=== PATIENT | female | born 1940 | race Caucasian/White ===

== ENCOUNTER 2017-04-08 09:47 | Emergency (ER) | payer MEDICARE, OTHER ==
[~2017-04-08] VITALS: Ht 162.6 cm; Wt 71.0 kg
[~2017-04-08 09:47] MED LIST: ACET325 PO; AUGM875T PO; CLON.1 PO; COLE625 PO; CYMB30CA PO; DEPA500T3 PO; LISI-363 PO; MELA3TAB PO; MILKSUS5 PO; MIRA33502 PO; PROM25TA5 PO; PROP80CA PO; RISP0.5T20 PO; SINE25TA PO; TEMA15 PO; TERA1 PO; VITA100020 PO; [UNRECOGNIZED DRUG - CODE] PO
[2017-04-08 10:15] VITALS: BP 137/76; PULSE 58; RESP 18; TEMP 97.2; O2SAT 96
--- NOTE | 2017-04-08 10:57 | PD ---
HPI Chief Complaint: Fall Time Seen by Provider: 10:49 Travel History International Travel<30 days: No Contact w/Intl Traveler<30days: No Traveled to known affect area: No History of Present Illness HPI This patient complains of left ankle and left knee pain. Duration 1 hour. Severity is moderate. Worse with weightbearing. She got up quickly from a chair at the eye doctor's office and twisted her ankle and fell onto her left knee. No head injury. No alleviating factors. 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 ABUSE) Allergies-Medications (Allergen,Severity, Reaction): Coded Allergies: Sulfa (Sulfonamide Antibiotics) (Unverified Allergy, Severe, Anaphylaxis, 04/08/17) iodine (Unverified Allergy, Severe, Anaphylaxis, 04/08/17) potassium iodide (Unverified Allergy, Severe, Anaphylaxis, 04/08/17) povidone-iodine (Unverified Allergy, Severe, Anaphylaxis, 04/08/17) sodium iodide (Unverified Allergy, Severe, Anaphylaxis, 04/08/17) sodium iodide (Unverified Allergy, Severe, Anaphylaxis, 04/08/17) Reported Meds & Prescriptions Reported Meds & Active Scripts Active Reported Tylenol-Codeine #3 (Acetaminophen-Codeine) 300-30 mg Tab 1 Tab PO TID PRN Colestid (Colestipol HCl) 1 Gram Tab 2 Gm PO BID Divalproex DR (Divalproex Sodium) 500 Mg Tabdr 500 Mg PO HS Carbidopa-Levodopa 25-100 Mg Tab 0.5 Tab PO Q8HR Amlodipine (Amlodipine Besylate) 5 Mg Tab 5 Mg PO DAILY Xanax (Alprazolam) 0.5 Mg Tab 0.5 Mg PO HS PRN Vitamin D3 (Cholecalciferol) 3,000 Unit Tab 6,000 Units PO DAILY Vitamin D3 (Cholecalciferol) 2,000 Unit Cap 2,000 Units PO DAILY Propranolol (Propranolol HCl) 60 Mg Tab 60 Mg PO Q8HR Terazosin (Terazosin HCl) 1 Mg Cap 1 Mg PO BID Temazepam 15 Mg Cap 15 Mg PO HS PRN Melatonin 5 Mg Tab 5 Mg PO HS Magnesium Oxide 400 Mg Tab 400 Mg PO BID Loperamide (Loperamide HCl) 2 Mg Cap 2 Mg PO DIRECTED PRN One capsule after each loose stool. Not to exceed 8 capsules per day. Lisinopril 20 Mg Tab 20 Mg PO BID Gabapentin 300 Mg Cap 300 Mg PO TID Eszopiclone 2 Mg Tab 2 Mg PO HS PRN Eliquis (Apixaban) 5 Mg Tab 5 Mg PO BID Duloxetine DR (Duloxetine HCl) 30 Mg Capdr 30 Mg PO BID Review of Systems General / Constitutional: No: Fever Eyes: No: Visual changes HENT: No: Headaches Cardiovascular: No: Chest Pain or Discomfort Respiratory: No: Shortness of Breath Gastrointestinal: No: Abdominal Pain Genitourinary: No: Dysuria Musculoskeletal: Positive: Arthralgias, Pain Skin: No Rash Neurologic: No: Weakness Psychiatric: No: Depression Endocrine: No: Polydipsia Hematologic/Lymphatic: No: Easy Bruising Physical Exam Narrative GENERAL: Well-nourished, well-developed patient in no apparent distress. SKIN: Focused skin assessment reveals no rash and nodules. Skin is Warm and dry. HEAD: Atraumatic. Normocephalic. EYES: Pupils equal and round. No scleral icterus. No injection or drainage. ENT: No nasal bleeding or discharge. Mucous membranes pink and moist. NECK: Trachea midline. No JVD. CARDIOVASCULAR: Regular rate and rhythm. No murmur appreciated. RESPIRATORY: No accessory muscle use. Clear to auscultation. Breath sounds equal bilaterally. GASTROINTESTINAL: Abdomen soft, non-tender, nondistended. Hepatic and splenic margins not palpable. MUSCULOSKELETAL: No obvious deformities. No clubbing. No cyanosis. She has some swelling and tenderness of the lateral malleolus of the left ankle. There is also slight bruising and tenderness to the patella on the left. NEUROLOGICAL: Awake and alert. No obvious cranial nerve deficits. Motor grossly within normal limits. Normal speech. PSYCHIATRIC: Appropriate mood and affect; insight and judgment normal. Data Data Last Documented VS Vital Signs Date Time Temp Pulse Resp B/P (MAP) Pulse Ox O2 Delivery O2 Flow Rate FiO2 04/08/17 10:15 97.2 58 18 137/76 (96) 96 Room Air Orders Orders Ankle, Complete ([id number]) (04/08/17 ) Knee, Complete (4vws) (04/08/17 ) [facility] Medical Decision Making Medical Screen Exam Complete: Yes Emergency Medical Condition: Yes Medical Record Reviewed: Yes Differential Diagnosis Knee fracture, ankle sprain, ankle fracture Narrative Course I have reviewed the patient's electronic medical record. I reviewed her left ankle x-rays I reviewed her left knee x-rays Diagnosis Primary Impression: Soft tissue injury of left knee Qualified Codes: S89.92XA - Unspecified injury of left lower leg, initial encounter Additional Impression: Inversion sprain of left ankle Qualified Codes: S93.402A - Sprain of unspecified ligament of left ankle, initial encounter Additional Instructions: Elevate left leg Apply ice to left ankle and left knee Limit weightbearing on left leg Use walker for a few days The patient was advised to follow up with their physician and return if they worsen. Med/Other Pt SpecificInfo: Other Disposition: 01 DISCHARGE HOME Condition: Stable Gualberto Pearce MD Apr 08, 2017 10:57
--- NOTE | 2017-04-08 12:01 | RADRPT ---
EXAM DATE/TIME: 04/08/2017 11:10 [facility] COMPARISON: No previous studies available for comparison. INDICATIONS : Left ankle pain after falling. MEDICAL HISTORY : Stroke. Parkinson's disease, dementia SURGICAL HISTORY : None. ENCOUNTER: Initial ACUITY: 1 day PAIN SCORE: 10/10 LOCATION: Left lateral ankle FINDINGS: Three view exam was performed of the left ankle. The bony structures are in normal alignment. No ev idence of fracture, dislocation, or soft tissue swelling. The ankle mortise is intact. No radiopaqu e foreign bodies are seen. Bony mineralization is normal. CONCLUSION: Negative for fracture or dislocation. Follow up in 7-10 days is suggested if symptoms persist. Juma Cole MD FACR on April 08, 2017 at 11:59 Board Certified Radiologist. This report was verified electronically.
--- NOTE | 2017-04-08 12:10 | RADRPT ---
EXAM DATE/TIME: 04/08/2017 11:15 [facility] COMPARISON: No previous studies available for comparison. INDICATIONS : Left knee pain after falling MEDICAL HISTORY : Stroke. Parkinsons's disease, dementia SURGICAL HISTORY : None. ENCOUNTER: Initial ACUITY: 1 day PAIN SCORE: 10/10 LOCATION: Left lateral knee FINDINGS: There is soft tissue swelling evident. Minimal loss of articular cartilage medial compartment with o ld fibular fracture. Acute fracture is not appreciated. Trace joint effusion is evident. Patella is intact. CONCLUSION: Trace joint effusion and soft tissue swelling. Fracture is not appreciated. Juma Cole MD FACR on April 08, 2017 at 12:07 Board Certified Radiologist. This report was verified electronically.
[2017-04-08] MEDS ORDERED: MELA5TAB15 PO (12:22)
[2017-04-08] MEDS ORDERED: ESZO1TAB3 PO (12:22)
[2017-04-08] MEDS ORDERED: GABA300C5 PO (12:22)
[2017-04-08] MEDS ORDERED: AMLO5TAB2 PO (12:22)
[2017-04-08] MEDS ORDERED: APIX5TAB PO (12:22)
[2017-04-08] MEDS ORDERED: ACET300T49 PO (12:22)
[2017-04-08] MEDS ORDERED: DIVA500T PO (12:22)
[2017-04-08] MEDS ORDERED: COLE1TAB PO (12:22)
[2017-04-08] MEDS ORDERED: TYLETAB34 PO (12:22)
[2017-04-08] MEDS ORDERED: MAGN400T2 PO (12:22)
[2017-04-08] MEDS ORDERED: TERA1CAP3 PO (12:22)
[2017-04-08] MEDS ORDERED: LISI-515 PO (12:22)
[2017-04-08] MEDS ORDERED: TEMA15CA PO (12:22)
[2017-04-08] MEDS ORDERED: LOPE2CAP PO (12:22)
[2017-04-08] MEDS ORDERED: ALPR.5 PO (12:22)
[2017-04-08] MEDS ORDERED: DULO1CAP2 PO (12:22)
[2017-04-08] MEDS ORDERED: PROP60TA PO (12:22)
[2017-04-08] MEDS ORDERED: CARB25TA9 PO (12:22)
[2017-04-08] MEDS ORDERED: VITA2000 PO (12:22)
[2017-04-08] MEDS ORDERED: VITA3000 PO (12:22)
== END 2017-04-08 12:58 | disposition home or self-care (01) ==
LOC: PHED 09:47
DX: S89.92XA Unspecified injury of left lower leg, initial encounter (principal); S93.402A Sprain of unspecified ligament of left ankle, initial encounter; W01.0XXA Fall on same level from slipping, tripping and stumbling without subsequent striking against object, initial encounter; Y93.89 Activity, other specified; Y92.531 Health care provider office as the place of occurrence of the external cause
CPT/HCPCS: 73564; 73610; 99283

== ENCOUNTER 2017-12-06 12:16 | Observation (INO) | payer MEDICARE, OTHER ==
[~2017-12-06] VITALS: Ht 162.6 cm; Wt 67.0 kg
[~2017-12-06 12:16] MED LIST changes: -ACET325 PO; +ALPR.5 PO; +AMLO5TAB2 PO; +APIX5TAB PO; -AUGM875T PO; +CARB25TA9 PO; -CLON.1 PO; +COLE1TAB PO; -COLE625 PO; -CYMB30CA PO; -DEPA500T3 PO; +DIVA500T PO; +DULO1CAP2 PO; +ESZO1TAB3 PO; +GABA300C5 PO; -LISI-363 PO; +LISI-515 PO; +LOPE2CAP PO; +MAGN400T2 PO; -MELA3TAB PO; +MELA5 PO; -MILKSUS5 PO; -MIRA33502 PO; -PROM25TA5 PO; +PROP60TA PO; -PROP80CA PO; -RISP0.5T20 PO; -SINE25TA PO; -TEMA15 PO; +TEMA15CA PO; -TERA1 PO; +TERA1CAP3 PO; +TYLETAB34 PO; -VITA100020 PO; +VITA2000 PO; +VITA3000 PO; -[UNRECOGNIZED DRUG - CODE] PO
[2017-12-06 12:20] VITALS: BP 162/70; PULSE 70; RESP 18; O2SAT 97
[2017-12-06] MEDS ORDERED: SERO25TA PO (12:40)
--- NOTE | 2017-12-06 12:40 | PD ---
HPI Chief Complaint: Neuro Symptoms/ Deficits Time Seen by Provider: 12:20 Travel History International Travel<30 days: No Contact w/Intl Traveler<30days: No Traveled to known affect area: No History of Present Illness HPI 77-year-old female presents to the emergency department with her daughter at bedside for evaluation altered mental status from [facility]. According to the assisted notes, the patient has been more altered than normal. She has been with an unsteady gait, more confused, not able to bring a drink to her face to drink. The daughter states that she has history of dementia and has been declining over the past several months. However, these symptoms are new as of 1 week ago. She states she has not seen the patient since November 11 when the patient became verbally aggressive with her. She got a psychiatrist involved at that time. The patient reports chronic bilateral headache to me. She denies any chest pain shortness breath. No abdominal pain. No nausea, vomiting, diarrhea. Patient has history of CVA. 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 PFSH Past Medical History Hx Anticoagulant Therapy: Yes Depression: Yes Heart Rhythm Problems: Yes (afib ) Cardiovascular Problems: Yes High Cholesterol: Yes Cerebrovascular Accident: Yes (tia, no residual, ) Coronary Artery Disease: Yes (afib) Dementia: Yes Genitourinary: Yes (utis,diarrhea ) Hypertension: Yes Parkinson's Disease: Yes Migraines: Yes Thyroid Disease: Yes ?: Not Past Surgical History Appendectomy: Yes Cholecystectomy: Yes Hysterectomy: Yes Tonsillectomy: Yes Social History Alcohol Use: No Tobacco Use: No Substance Use: No (HX OF RX ABUSE) Allergies-Medications (Allergen,Severity, Reaction): Coded Allergies: Sulfa (Sulfonamide Antibiotics) (Unverified Allergy, Severe, Anaphylaxis, 12/06/17) iodine (Unverified Allergy, Severe, Anaphylaxis, 12/06/17) potassium iodide (Unverified Allergy, Severe, Anaphylaxis, 12/06/17) povidone-iodine (Unverified Allergy, Severe, Anaphylaxis, 12/06/17) sodium iodide (Unverified Allergy, Severe, Anaphylaxis, 12/06/17) sodium iodide (Unverified Allergy, Severe, Anaphylaxis, 12/06/17) Reported Meds & Prescriptions Reported Meds & Active Scripts Active Reported Seroquel (Quetiapine Fumarate) 25 Mg Tab 25 Mg PO BID Tylenol-Codeine #3 (Acetaminophen-Codeine) 300-30 mg Tab 1 Tab PO TID PRN Colestid (Colestipol HCl) 1 Gram Tab 2 Gm PO BID Divalproex DR (Divalproex Sodium) 500 Mg Tabdr 500 Mg PO HS Carbidopa-Levodopa 25-100 Mg Tab 0.5 Tab PO Q8HR Amlodipine (Amlodipine Besylate) 5 Mg Tab 5 Mg PO DAILY Xanax (Alprazolam) 0.5 Mg Tab 0.5 Mg PO HS PRN Vitamin D3 (Cholecalciferol) 3,000 Unit Tab 6,000 Units PO DAILY Propranolol (Propranolol HCl) 60 Mg Tab 60 Mg PO Q8HR Terazosin (Terazosin HCl) 1 Mg Cap 1 Mg PO BID Melatonin 5 Mg Tab 5 Mg PO HS Magnesium Oxide 400 Mg Tab 400 Mg PO BID Loperamide (Loperamide HCl) 2 Mg Cap 2 Mg PO DIRECTED PRN One capsule after each loose stool. Not to exceed 8 capsules per day. Lisinopril 20 Mg Tab 20 Mg PO BID Gabapentin 300 Mg Cap 300 Mg PO TID Eszopiclone 2 Mg Tab 2 Mg PO HS PRN Eliquis (Apixaban) 5 Mg Tab 5 Mg PO BID Review of Systems Except as stated in HPI: all other systems reviewed are Neg Physical Exam Narrative GENERAL: Well-nourished, well-developed elderly female patient, afebrile. Patient is alert to person and place only. She does not know the month or the year. SKIN: Focused skin assessment warm/dry. HEAD: Normocephalic. Atraumatic. EYES: No scleral icterus. No injection or drainage. PERRLA. EOM intact. ENT: Mucosa pink and moist. No erythema or exudates. No uvular edema. No uvular , palatal, or tonsillar deviation. Airway patent. Nasal turbinates appear normal without nasal blood, purulent drainage or septal hematoma. Bilateral tympanic membranes clear without erythema or perforation. NECK: Supple, trachea midline. No JVD or lymphadenopathy. CARDIOVASCULAR: Regular rate and rhythm without murmurs, gallops, or rubs. RESPIRATORY: Breath sounds equal bilaterally. No accessory muscle use. Lung sounds are clear to auscultation. GASTROINTESTINAL: Abdomen soft, non-tender, nondistended. MUSCULOSKELETAL: No cyanosis, or edema. Bilateral upper and lower extremity strength 5/5. All extremities are neurovascularly intact. BACK: Nontender without obvious deformity. No CVA tenderness. NEUROLOGICAL: Awake and alert. Motor and sensory grossly within normal limits. Five out of 5 muscle strength in all muscle groups. Slow speech. Patient is unable to do finger to nose with her right hand. However, patient is blind in the right eye which may contribute to this. Data Data Last Documented VS Vital Signs Date Time Temp Pulse Resp B/P (MAP) Pulse Ox O2 Delivery O2 Flow Rate FiO2 12/06/17 13:44 98.6 12/06/17 12:46 99 Room Air 12/06/17 12:20 70 18 Orders Orders Electrocardiogram (12/06/17 12:33) Ammonia (12/06/17 12:33) Complete Blood Count With Diff (12/06/17 12:33) Comprehensive Metabolic Panel (12/06/17 12:33) Creatine Kinase (Cpk) (12/06/17 12:33) Prothrombin Time / Inr (Pt) (12/06/17 12:33) Act Partial Throm Time (Ptt) (12/06/17 12:33) Troponin I (12/06/17 12:33) Urinalysis - C+S If Indicated (12/06/17 12:33) Ct Brain W/O Iv Contrast(Rout) (12/06/17 12:33) Blood Glucose (12/06/17 12:33) Ecg Monitoring (12/06/17 12:33) Iv Access Insert/Monitor (12/06/17 12:33) Oximetry (12/06/17 12:33) Sodium Chloride 0.9% Flush (Ns Flush) (12/06/17 12:45) Valproic Acid (Depakene) (12/06/17 12:33) Admit Order (Ed Use Only) (12/06/17 14:31) Labs Laboratory Tests Test 12/06/17 12:35 12/06/17 12:40 White Blood Count 9.3 TH/MM3 Red Blood Count 4.19 MIL/MM3 Hemoglobin 12.5 GM/DL Hematocrit 37.6 % Mean Corpuscular Volume 89.8 FL Mean Corpuscular Hemoglobin 30.0 PG Mean Corpuscular Hemoglobin Concent 33.4 % Red Cell Distribution Width 14.7 % Platelet Count 177 TH/MM3 Mean Platelet Volume 9.8 FL Neutrophils (%) (Auto) 71.2 % Lymphocytes (%) (Auto) 22.2 % Monocytes (%) (Auto) 5.0 % Eosinophils (%) (Auto) 1.1 % Basophils (%) (Auto) 0.5 % Neutrophils # (Auto) 6.6 TH/MM3 Lymphocytes # (Auto) 2.1 TH/MM3 Monocytes # (Auto) 0.5 TH/MM3 Eosinophils # (Auto) 0.1 TH/MM3 Basophils # (Auto) 0.0 TH/MM3 CBC Comment DIFF FINAL Differential Comment Prothrombin Time 11.5 SEC Prothromb Time International Ratio 1.1 RATIO Activated Partial Thromboplast Time 36.6 SEC Blood Urea Nitrogen 24 MG/DL Creatinine 0.78 MG/DL Random Glucose 89 MG/DL Total Protein 7.4 GM/DL Albumin 3.4 GM/DL Calcium Level 8.5 MG/DL Alkaline Phosphatase 70 U/L Aspartate Amino Transf (AST/SGOT) 11 U/L Alanine Aminotransferase (ALT/SGPT) 10 U/L Total Bilirubin 0.4 MG/DL Sodium Level 139 MEQ/L Potassium Level 3.6 MEQ/L Chloride Level 104 MEQ/L Carbon Dioxide Level 25.8 MEQ/L Anion Gap 9 MEQ/L Estimat Glomerular Filtration Rate 72 ML/MIN Total Creatine Kinase 34 U/L Troponin I LESS THAN 0.02 NG/ML Valproic Acid (Depakene) Level 46 MCG/ML Ammonia 38 MCMOL/L [facility] Medical Decision Making Medical Screen Exam Complete: Yes Emergency Medical Condition: Yes Medical Record Reviewed: Yes Interpretation(s) Last Impressions Head CT 12/06/17 1233 Signed Impressions: Service Date/Time: Wednesday, December 06, 2017 13:49 - CONCLUSION: 1. Stable senescent changes and moderate periventricular ischemic white matter demyelination. 2. Complete opacification of the frontal sinuses, ethmoid air cells and right maxillary sinus. 3. No acute intracranial abnormality. Raul Rai MD Differential Diagnosis Electrolyte abnormality versus UTI versus CVA versus dementia Narrative Course 77-year-old female presents to the emergency department for worsening confusion , AMS over the past week. She does have history dementia. EKG, CBC, CMP, CK, ammonia level, troponin, PTT, PT/INR, UA, Depakote level, CT the brain are ordered and pending. EKG shows sinus rhythm, heart rate 67, no acute ST changes. CBC is unremarkable. CMP shows elevated BUN 24, no acute abnormality. CK is 34. Troponin is less than 0.02. Ammonia is 38. Coags show no acute abnormality. UA [-]. Depakote level is 46. CT of the brain shows no acute intracranial abnormality. [facility] is paged for admission. Dr. Richmond accepted admission. Diagnosis Primary Impression: Neurological abnormality Admitting Information Admitting Physician Requests: Observation Sydnee Gautam December 06, 2017 12:40
[2017-12-06] MEDS ORDERED: SODIUM CHLORIDE 0.9% FLUSH 10 ML FLUSH IV FLUSH PRN ×2 (12:45→14:45)
[2017-12-06 12:46] VITALS: O2SAT 99
[2017-12-06 13:12] LABS: AUTOMATED NEUTROPHIL # 6.6 TH/MM3 (1.8-7.7); BASOPHIL % 0.5 % (0.0-2.0); EOSINOPHIL # 0.1 TH/MM3 (0-0.4); EOSINOPHIL % 1.1 % (0.0-4.0); HEMATOCRIT 37.6 % (35.0-46.0); HEMOGLOBIN 12.5 GM/DL (11.6-15.3); LYMPH % 22.2 % (9.0-44.0); LYMPHOCYTE # 2.1 TH/MM3 (1.0-4.8); MEAN CELL VOLUME 89.8 FL (80.0-100.0); MEAN CORPUSCULAR HGB CONC 33.4 % (32.0-36.0); MEAN PLATELET VOLUME 9.8 FL (7.0-11.0); MONOCYTE # 0.5 TH/MM3 (0-0.9); NEUT % 71.2 % (16.0-70.0); PLATELET COUNT 177 TH/MM3 (150-450); RED BLOOD COUNT 4.19 MIL/MM3 (4.00-5.30); RED CELL DISTRIBUTION WIDTH 14.7 % (11.6-17.2); WHITE BLOOD COUNT 9.3 TH/MM3 (4.0-11.0)
[2017-12-06 13:18] LABS: INTERNATIONAL NORMALIZED RATIO 1.1 RATIO; PROTHROMBIN TIME - PATIENT 11.5 SEC (9.8-11.6)
[2017-12-06 13:36] LABS: ALBUMIN 3.4 GM/DL (3.4-5.0); ALT (GPT) 10 U/L (10-53); AST (GOT) 11 U/L (15-37); BICARBONATE 25.8 MEQ/L (21.0-32.0); BLOOD UREA NITROGEN 24 MG/DL (7-18); CALCIUM 8.5 MG/DL (8.5-10.1); CHLORIDE 104 MEQ/L (98-107); CREATININE 0.78 MG/DL (0.50-1.00); GLOMERULAR FILTRATION RATE 72 ML/MIN (>89); GLUCOSE,RANDOM 89 MG/DL (74-106); SODIUM (NA) 139 MEQ/L (136-145)
[2017-12-06 13:40] LABS: ALKALINE PHOSPHATASE 70 U/L (45-117); TOTAL BILIRUBIN ADULT 0.4 MG/DL (0.2-1.0); TOTAL PROTEIN 7.4 GM/DL (6.4-8.2); TROPONIN I LESS THAN 0.02 NG/ML (0.02-0.05)
[2017-12-06 13:44] VITALS: TEMP 98.6
--- NOTE | 2017-12-06 13:59 | RADRPT ---
EXAM DATE/TIME: 12/06/2017 13:49 [facility] COMPARISON: CT BRAIN W/O CONTRAST, January 31, 2015, 14:54. INDICATIONS : Dysphasia and unsteady gait for one week. RADIATION DOSE: 39.54 CTDIvol (mGy) MEDICAL HISTORY : Stroke. Parkinsons. Dementia. SURGICAL HISTORY : Hysterectomy. ENCOUNTER: Initial ACUITY: 1 day PAIN SCALE: 0/10 LOCATION: Bilateral head TECHNIQUE: Multiple contiguous axial images were obtained of the head. Using automated exposure control and adj ustment of the mA and/or kV according to patient size, radiation dose was kept as low as reasonably a chievable to obtain optimal diagnostic quality images. DICOM format image data is available electro nically for review and comparison. FINDINGS: CEREBRUM: Prominent diffuse cerebral atrophy. [id number] periventricular white matter hypodensities. The ventricles are normal for degree of atrophy and stable from prior exam. No evidence of midline shift , mass lesion, hemorrhage or acute infarction. No extra-axial fluid collections are seen. POSTERIOR FOSSA: The cerebellum and brainstem are intact. The 4th ventricle is midline. The cerebellopontine angle i s unremarkable. EXTRACRANIAL: The visualized portion of the orbits is intact. Completely opacified frontal sinuses, ethmoid air magan ls and right maxillary sinus. SKULL: The calvaria is intact. No evidence of skull fracture. CONCLUSION: 1. Stable senescent changes and moderate periventricular ischemic white matter demyelination. 2. Complete opacification of the frontal sinuses, ethmoid air cells and right maxillary sinus. 3. No acute intracranial abnormality. Raul Rai MD on December 06, 2017 at 13:55 Board Certified Radiologist. This report was verified electronically.
[2017-12-06] MEDS ORDERED: SENNOSIDES 8.6 MG TAB PO PRN (14:45)
[2017-12-06] MEDS ORDERED: BISACODYL 10 MG SUPP RECTAL PRN (14:45)
[2017-12-06] MEDS ORDERED: MAGNESIUM HYDROXIDE SUSP 30 ML CUP PO PRN (14:45)
[2017-12-06] MEDS ORDERED: METOCLOPRAMIDE HCL 10 MG/2 ML VIAL IV PUSH PRN (14:45)
[2017-12-06] MEDS ORDERED: LACTULOSE SYRUP 20 GM/30 ML CUP PO PRN (14:45)
[2017-12-06] MEDS ORDERED: NALOXONE HCL 0.4 MG/ML AMP IV PUSH PRN (14:45)
--- NOTE | 2017-12-06 14:55 | HHI.HP ---
[facility] Unknown Admission Diagnosis AMS, gait instability, neurological changes Diagnoses: Chief Complaint: unsteady gait, AMS Travel History International Travel<30 Days: No Contact w/Intl Traveler <30 Da: No Traveled to Known Affected Are: No History of Present Illness 77-year-old female with PMH of CVA, dementia, HTN, Afib on eliquis, Parkinson's presents to the emergency department with her daughter at bedside for evaluation altered mental status from [facility]. According to the [place] [facility] notes , the patient has been more altered than normal. She has been with an unsteady gait, more confused, not able to bring a drink to her face to drink. The daughter states that she has history of dementia and has been declining over the past several months. However, these symptoms are new as of 1 week ago. She states she has not seen the patient since November 11 when the patient became verbally aggressive with her. She got a psychiatrist involved at that time. The patient reports chronic bilateral headache to me. She denies any chest pain shortness breath. No abdominal pain. No nausea, vomiting, diarrhea. Patient has history of CVA. 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 Review of Systems ROS Limitations: Clinical Condition, Altered Mental Status Except as stated in HPI: all other systems reviewed are Neg Past Family Social History Past Medical History CVA, dementia, HTN, Afib on eliquis, Parkinson's Past Surgical History Appendectomy Cholecystectomy Hysterectomy Tonsillectomy Neck surgery Reported Medications Reported Meds & Active Scripts Active Reported Seroquel (Quetiapine Fumarate) 25 Mg Tab 25 Mg PO BID Tylenol-Codeine #3 (Acetaminophen-Codeine) 300-30 mg Tab 1 Tab PO TID PRN Colestid (Colestipol HCl) 1 Gram Tab 2 Gm PO BID Divalproex DR (Divalproex Sodium) 500 Mg Tabdr 500 Mg PO HS Carbidopa-Levodopa 25-100 Mg Tab 0.5 Tab PO Q8HR Amlodipine (Amlodipine Besylate) 5 Mg Tab 5 Mg PO DAILY Xanax (Alprazolam) 0.5 Mg Tab 0.5 Mg PO HS PRN Vitamin D3 (Cholecalciferol) 3,000 Unit Tab 6,000 Units PO DAILY Propranolol (Propranolol HCl) 60 Mg Tab 60 Mg PO Q8HR Terazosin (Terazosin HCl) 1 Mg Cap 1 Mg PO BID Melatonin 5 Mg Tab 5 Mg PO HS Magnesium Oxide 400 Mg Tab 400 Mg PO BID Loperamide (Loperamide HCl) 2 Mg Cap 2 Mg PO DIRECTED PRN One capsule after each loose stool. Not to exceed 8 capsules per day. Lisinopril 20 Mg Tab 20 Mg PO BID Gabapentin 300 Mg Cap 300 Mg PO TID Eszopiclone 2 Mg Tab 2 Mg PO HS PRN Eliquis (Apixaban) 5 Mg Tab 5 Mg PO BID Allergies: Coded Allergies: Sulfa (Sulfonamide Antibiotics) (Unverified Allergy, Severe, Anaphylaxis, 12/06/17) iodine (Unverified Allergy, Severe, Anaphylaxis, 12/06/17) potassium iodide (Unverified Allergy, Severe, Anaphylaxis, 12/06/17) povidone-iodine (Unverified Allergy, Severe, Anaphylaxis, 12/06/17) sodium iodide (Unverified Allergy, Severe, Anaphylaxis, 12/06/17) sodium iodide (Unverified Allergy, Severe, Anaphylaxis, 12/06/17) Family History Mother ovarian CA Father MD Brother MD Social History No EtOH or tobacco use. H/o prescription drug use. Physical Exam Vital Signs Vital Signs Date Time Temp Pulse Resp B/P (MAP) Pulse Ox O2 Delivery O2 Flow Rate FiO2 12/06/17 13:44 98.6 12/06/17 12:46 99 Room Air 12/06/17 12:20 70 18 162/70 (100) 97 Room Air Physical Exam GENERAL: This is a well-nourished, well-developed patient, in no apparent distress. SKIN: No rashes, ecchymoses or lesions. Cool and dry. HEAD: Atraumatic. Normocephalic. No temporal or scalp tenderness. EYES: Pupils equal round and reactive. Extraocular motions intact. No scleral icterus. No injection or drainage. ENT: Nose without bleeding, purulent drainage or septal hematoma. Throat without erythema, tonsillar hypertrophy or exudate. Uvula midline. Airway patent. NECK: Trachea midline. No JVD or lymphadenopathy. Supple, nontender, no meningeal signs. CARDIOVASCULAR: Regular rate and rhythm without murmurs, gallops, or rubs. RESPIRATORY: Clear to auscultation. Breath sounds equal bilaterally. No wheezes , rales, or rhonchi. GASTROINTESTINAL: Abdomen soft, non-tender, nondistended. No hepato-splenomegaly , or palpable masses. No guarding. MUSCULOSKELETAL: Extremities without clubbing, cyanosis, or edema. No joint tenderness, effusion, or edema noted. No calf tenderness. Negative Homans sign bilaterally. NEUROLOGICAL: Awake and alert. Cranial nerves II through XII intact. Motor and sensory grossly within normal limits. Five out of 5 muscle strength in all muscle groups. Normal speech. Laboratory Laboratory Tests Test 12/06/17 12:35 12/06/17 12:40 White Blood Count 9.3 Red Blood Count 4.19 Hemoglobin 12.5 Hematocrit 37.6 Mean Corpuscular Volume 89.8 Mean Corpuscular Hemoglobin 30.0 Mean Corpuscular Hemoglobin Concent 33.4 Red Cell Distribution Width 14.7 Platelet Count 177 Mean Platelet Volume 9.8 Neutrophils (%) (Auto) 71.2 Lymphocytes (%) (Auto) 22.2 Monocytes (%) (Auto) 5.0 Eosinophils (%) (Auto) 1.1 Basophils (%) (Auto) 0.5 Neutrophils # (Auto) 6.6 Lymphocytes # (Auto) 2.1 Monocytes # (Auto) 0.5 Eosinophils # (Auto) 0.1 Basophils # (Auto) 0.0 CBC Comment DIFF FINAL Differential Comment Prothrombin Time 11.5 Prothromb Time International Ratio 1.1 Activated Partial Thromboplast Time 36.6 Blood Urea Nitrogen 24 Creatinine 0.78 Random Glucose 89 Total Protein 7.4 Albumin 3.4 Calcium Level 8.5 Alkaline Phosphatase 70 Aspartate Amino Transf (AST/SGOT) 11 Alanine Aminotransferase (ALT/SGPT) 10 Total Bilirubin 0.4 Sodium Level 139 Potassium Level 3.6 Chloride Level 104 Carbon Dioxide Level 25.8 Anion Gap 9 Estimat Glomerular Filtration Rate 72 Total Creatine Kinase 34 Troponin I LESS THAN 0.02 Valproic Acid (Depakene) Level 46 Ammonia 38 Result Diagram: 12/06/17 1235 12/06/17 1235 Imaging Last Impressions Head CT 12/06/17 1233 Signed Impressions: Service Date/Time: Wednesday, December 06, 2017 13:49 - CONCLUSION: 1. Stable senescent changes and moderate periventricular ischemic white matter demyelination. 2. Complete opacification of the frontal sinuses, ethmoid air cells and right maxillary sinus. 3. No acute intracranial abnormality. MD Ragini Fan VTE Risk Assessment Ragini VTE Risk Assessment: Mod/High Risk (score >= 2) Caprini Risk Assessment Model Point Value = 1 Point Value = 2 Point Value = 3 Point Value = 5 Age 41-60 Minor surgery BMI > 25 kg/m2 Swollen legs Varicose veins or History of unexplained or recurrent spontaneous Oral contraceptives or hormone replacement Sepsis (< 1 month) Serious lung disease, including pneumonia (< 1 month) Abnormal pulmonary function Acute myocardial infarction Congestive heart failure (< 1 month) History of inflammatory bowel disease Medical patient at bed rest Age 61-74 Arthroscopic surgery Major open surgery (> 45 min) Laparoscopic surgery (> 45 min) Malignancy Confined to bed (> 72 hours) Immobilizing plaster cast Central venous access Age >= 75 History of VTE Family history of VTE Factor V Leiden Prothrombin [id number] Lupus anticoagulant Anticardiolipin antibodies Elevated serum homocysteine Heparin-induced thrombocytopenia Other congenital or acquired thrombophilia Stroke (< 1 month) Elective arthroplasty Hip, pelvis, or leg fracture Acute spinal cord injury (< 1 month) Prophylaxis Regimen Total Risk Factor Score Risk Level Prophylaxis Regimen 0-1 Low Early ambulation 2 Moderate Order ONE of the following: *Sequential Compression Device (SCD) *Heparin 5000 units SQ BID 3-4 Higher Order ONE of the following medications: *Heparin 5000 units SQ TID *Enoxaparin/Lovenox 40 mg SQ daily (WT < 150 kg, CrCl > 30 mL/min) *Enoxaparin/Lovenox 30 mg SQ daily (WT < 150 kg, CrCl > 10-29 mL/min) *Enoxaparin/Lovenox 30 mg SQ BID (WT < 150 kg, CrCl > 30 mL/min) AND/OR *Sequential Compression Device (SCD) 5 or more Highest Order ONE of the following medications: *Heparin 5000 units SQ TID (Preferred with Epidurals) *Enoxaparin/Lovenox 40 mg SQ daily (WT < 150 kg, CrCl > 30 mL/min) *Enoxaparin/Lovenox 30 mg SQ daily (WT < 150 kg, CrCl > 10-29 mL/min) *Enoxaparin/Lovenox 30 mg SQ BID (WT < 150 kg, CrCl > 30 mL/min) AND *Sequential Compression Device (SCD) Assessment and Plan Assessment and Plan 77-year-old female with PMH of CVA, dementia, HTN, Afib on eliquis, Parkinson's presents to the emergency department for worsening confusion, AMS over the past week and gait disturbance for the past 2 days. H/o CVA now with new gait abnormality x 2 days and progressive AMS over the past week Acute encephalopathy patient presented with decline in mental status. Labs and CT imaging stable. Also patient has a h/o dementia. Has a h/o CVA with right eye blindness CT of the brain reviewed no acute intracranial abnormality.Patient has a h/o neck surgery and has metal in her neck per daughter. Consult patient neurology Dr Carrero. Imaging per neuro Depakote level is 46. Will do EEG NPO , advance diet if passing swallow eval Consult PT/OT/ST Neurochecks Monitor on telemetry IVF. Allow permissive HTN 2D ECHO Afib rate controlled. Continue propranolol, monitor on tele. 2D ECHO. Restart home meds as appropriate DVT ppx scd/teds, restart eliquis Discussed Condition With pt, family her daughter at bedside, ER physician. Parvin Richmond MD December 06, 2017 14:55
[2017-12-06] MEDS ORDERED: ESZOPICLONE 2 MG TAB PO PRN (15:00)
[2017-12-06] MEDS ORDERED: ENOXAPARIN SODIUM 40 MG/0.4 ML SYRINGE SQ SCH (15:00)
[2017-12-06 16:30] VITALS: BP 155/72; PULSE 68; RESP 18; TEMP 97.8; O2SAT 93
[2017-12-06] MEDS: SODIUM CHLOR 0.9% 1000 ML INJ 1,000 ML IV SCH (17:36)
[2017-12-06] MEDS: GABAPENTIN 300 MG CAP PO SCH (17:36)
--- NOTE | 2017-12-06 17:48 | EKG ---
Date Performed: 12/06/2017 Time Performed: 13:22:32 PTAGE: 77 years EKG: Sinus rhythm POOR R WAVE PROGRESSION BORDERLINE ECG PREVIOUS TRACING : 01/31/2015 14.22 No significant change from previous tracing noted. DOCTOR: Cj Del Rio Interpretating Date/Time 12/06/2017 17:47:26
[2017-12-06] MEDS ORDERED: ENALAPRILAT 1.25 MG/ML VIAL IV PUSH PRN (18:00)
[2017-12-06] MEDS ORDERED: DEXTROSE 50% IN WATER 50 ML VIAL(D50) IV PUSH PRN (18:00)
[2017-12-06] MEDS ORDERED: GLUCAGON 1 MG/ML VIAL OTHER PRN (18:00)
[2017-12-06 20:05] VITALS: BP 189/79; PULSE 67; RESP 16; TEMP 98; O2SAT 94
[2017-12-06] MEDS: INSULIN ASPART SUPPLEMENTAL SCALE SQ SCH (20:37)
[2017-12-06 20:44] LABS: BACTERIA, URINE RARE /hpf; BILIRUBIN, URINE NEG (NEG); BLOOD, URINE NEG (NEG); GLUCOSE,URINE NEG (NEG); KETONE, URINE NEG (NEG); NITRITE,URINE NEG (NEG); PH, URINE 6.5 (5.0-8.5); SQUAMOUS EPITHELIAL CELL URINE 4 /hpf (0-5); URINE COLOR YELLOW (YELLW/STRAW); URINE LEUKOCYTE ESTERASE SMALL (NEG)
[2017-12-06] MEDS: DOCUSATE SODIUM 50 MG/SENNA 8.6 MG TAB PO SCH (21:00)
[2017-12-06] MEDS ORDERED: COLESTIPOL 2 GM PO SCH (21:00)
[2017-12-06] MEDS: CARBIDOPA/LEVODOPA 25 MG/100 MG TAB PO SCH (21:21)
[2017-12-06] MEDS: APIXABAN 5 MG TABLET PO SCH (21:21)
[2017-12-06] MEDS: QUEtiapine FUMARATE 25 MG TAB PO SCH (21:21)
[2017-12-06] MEDS: SODIUM CHLORIDE 0.9% FLUSH 10 ML FLUSH IV FLUSH SCH (21:21)
[2017-12-06] MEDS: PROPRANOLOL HCL 20 MG TAB PO SCH (21:22)
[2017-12-06] MEDS: MELATONIN 5 MG TAB PO SCH (21:22)
[2017-12-06] MEDS: MAGNESIUM OXIDE 400 MG TAB PO SCH (21:22)
[2017-12-06] MEDS: DIVALPROEX DR 500 MG TABEC PO SCH (21:33)
[2017-12-06] MEDS ORDERED: NON-FORMULARY DRUG (Propranolol 60 MG) PO SCH (22:00)
[2017-12-07] VITALS (8 sets, daily range): BP systolic 144–172; BP diastolic 67–77; PULSE 63–70; RESP 16–18; TEMP 97.5–98.8; O2SAT 90–96
[2017-12-07] MEDS: SODIUM CHLOR 0.9% 1000 ML INJ 1,000 ML IV SCH ×2 (04:20→18:01)
[2017-12-07] MEDS: PROPRANOLOL HCL 20 MG TAB PO SCH ×3 (05:33→23:07)
[2017-12-07] MEDS: CARBIDOPA/LEVODOPA 25 MG/100 MG TAB PO SCH ×3 (05:33→23:08)
[2017-12-07] MEDS ORDERED: LACTULOSE SYRUP 20 GM/30 ML CUP PO ONE (07:45)
[2017-12-07 07:54] LABS: BASOPHIL % 0.4 % (0.0-2.0); EOSINOPHIL # 0.2 TH/MM3 (0-0.4); HEMATOCRIT 34.7 % (35.0-46.0); HEMOGLOBIN 11.5 GM/DL (11.6-15.3); LYMPHOCYTE # 2.7 TH/MM3 (1.0-4.8); MEAN CELL VOLUME 90.1 FL (80.0-100.0); MEAN CORPUSCULAR HGB CONC 33.2 % (32.0-36.0); MEAN PLATELET VOLUME 10.2 FL (7.0-11.0); MONO % 5.5 % (0.0-8.0); MONOCYTE # 0.3 TH/MM3 (0-0.9); NEUT % 48.1 % (16.0-70.0); PLATELET COUNT 164 TH/MM3 (150-450); RED BLOOD COUNT 3.85 MIL/MM3 (4.00-5.30); RED CELL DISTRIBUTION WIDTH 14.6 % (11.6-17.2); WHITE BLOOD COUNT 6.2 TH/MM3 (4.0-11.0)
[2017-12-07] MEDS ORDERED: cefTRIAXone INJ 1,000 MG in SODIUM CHLORIDE 0.9% INJ 100 ML IV SCH (08:00)
[2017-12-07] MEDS: INSULIN ASPART SUPPLEMENTAL SCALE SQ SCH ×4 (08:00→21:00)
[2017-12-07 08:27] LABS: BICARBONATE 22.7 MEQ/L (21.0-32.0); CALCIUM 8.2 MG/DL (8.5-10.1); CREATININE 0.54 MG/DL (0.50-1.00)
[2017-12-07 08:30] LABS: CHOLESTEROL/ HDL RATIO 2.67 RATIO; HDL CHOLESTEROL 57.9 MG/DL (40.0-60.0)
[2017-12-07] MEDS: SODIUM CHLORIDE 0.9% FLUSH 10 ML FLUSH IV FLUSH SCH ×2 (09:29→21:00)
[2017-12-07] MEDS: GABAPENTIN 300 MG CAP PO SCH ×3 (09:29→18:01)
[2017-12-07] MEDS: CHOLECALCIFEROL (VIT D3) 1000 UNIT TAB PO SCH (09:29)
[2017-12-07] MEDS: APIXABAN 5 MG TABLET PO SCH ×2 (09:29→23:08)
[2017-12-07] MEDS: MAGNESIUM OXIDE 400 MG TAB PO SCH ×2 (09:29→23:09)
[2017-12-07] MEDS: QUEtiapine FUMARATE 25 MG TAB PO SCH ×2 (09:29→23:09)
[2017-12-07] MEDS: DOCUSATE SODIUM 50 MG/SENNA 8.6 MG TAB PO SCH ×2 (09:29→23:07)
--- NOTE | 2017-12-07 10:34 | PD.CONS ---
History of Present Illness Service Neurology Consult Requested By Medical Reason for Consult Stroke Primary Care Physician Unknown History of Present Illness 77-year-old female with history of dementia, stroke atrial fibrillation admitted for more confusion and gait imbalance. She lives at longterm facility. She apparently is been more agitated and off balance. No family at bedside patient poor historian. She denies any headache or focal weakness. States she has had visual loss in her right eye from a previous stroke. She sitting up eating breakfast comfortably. She is on Eliquis twice daily This reviewed and obtained from medical chart due to patient's memory loss Review of Systems Except as stated in HPI: all other systems reviewed are Neg Past Family Social History Past Medical History Stroke dementia, HTN, Afib on eliquis, Parkinson's Past Surgical History Appendectomy Cholecystectomy Hysterectomy Tonsillectomy Neck surgery Reported Medications Reported Meds & Active Scripts Active Reported Seroquel (Quetiapine Fumarate) 25 Mg Tab 25 Mg PO BID Tylenol-Codeine #3 (Acetaminophen-Codeine) 300-30 mg Tab 1 Tab PO TID PRN Colestid (Colestipol HCl) 1 Gram Tab 2 Gm PO BID Divalproex DR (Divalproex Sodium) 500 Mg Tabdr 500 Mg PO HS Carbidopa-Levodopa 25-100 Mg Tab 0.5 Tab PO Q8HR Amlodipine (Amlodipine Besylate) 5 Mg Tab 5 Mg PO DAILY Xanax (Alprazolam) 0.5 Mg Tab 0.5 Mg PO HS PRN Vitamin D3 (Cholecalciferol) 3,000 Unit Tab 6,000 Units PO DAILY Propranolol (Propranolol HCl) 60 Mg Tab 60 Mg PO Q8HR Terazosin (Terazosin HCl) 1 Mg Cap 1 Mg PO BID Melatonin 5 Mg Tab 5 Mg PO HS Magnesium Oxide 400 Mg Tab 400 Mg PO BID Loperamide (Loperamide HCl) 2 Mg Cap 2 Mg PO DIRECTED PRN One capsule after each loose stool. Not to exceed 8 capsules per day. Lisinopril 20 Mg Tab 20 Mg PO BID Gabapentin 300 Mg Cap 300 Mg PO TID Eszopiclone 2 Mg Tab 2 Mg PO HS PRN Eliquis (Apixaban) 5 Mg Tab 5 Mg PO BID Allergies: Coded Allergies: Sulfa (Sulfonamide Antibiotics) (Unverified Allergy, Severe, Anaphylaxis, 12/06/17) iodine (Unverified Allergy, Severe, Anaphylaxis, 12/06/17) potassium iodide (Unverified Allergy, Severe, Anaphylaxis, 12/06/17) povidone-iodine (Unverified Allergy, Severe, Anaphylaxis, 12/06/17) sodium iodide (Unverified Allergy, Severe, Anaphylaxis, 12/06/17) sodium iodide (Unverified Allergy, Severe, Anaphylaxis, 12/06/17) Family History Mother ovarian CA Father [place] Brother [place] Social History No EtOH or tobacco use. H/o prescription drug use. Review of Systems All other ROS: ROS reviewed as documented in chart Past Family Social History Allergies: Coded Allergies: Sulfa (Sulfonamide Antibiotics) (Unverified Allergy, Severe, Anaphylaxis, 12/06/17) iodine (Unverified Allergy, Severe, Anaphylaxis, 12/06/17) potassium iodide (Unverified Allergy, Severe, Anaphylaxis, 12/06/17) povidone-iodine (Unverified Allergy, Severe, Anaphylaxis, 12/06/17) sodium iodide (Unverified Allergy, Severe, Anaphylaxis, 12/06/17) sodium iodide (Unverified Allergy, Severe, Anaphylaxis, 12/06/17) Active Ordered Medications Current Medications Medications (Trade) Dose Ordered Sig/Luca Route Start Time Stop Time Status Last Admin Sodium Chloride 1,000 ml @ 75 mls/hr [id number] IV 12/06/17 15:00 12/06/17 17:36 (NS Flush) 2 ml UNSCH PRN IV FLUSH 12/06/17 14:45 (NS Flush) 2 ml BID IV FLUSH 12/06/17 21:00 12/07/17 09:29 (Tylenol) 650 mg Q4H PRN PO 12/06/17 14:45 (Reglan Inj) 5 mg Q6H PRN IV PUSH 12/06/17 14:45 (Narcan Inj) 0.4 mg UNSCH PRN IV PUSH 12/06/17 14:45 (Faby-Colace) 1 tab BID PO 12/06/17 21:00 12/07/17 09:29 (Milk Of Magnesia Liq) 30 ml Q12H PRN PO 12/06/17 14:45 (Senokot) 17.2 mg Q12H PRN PO 12/06/17 14:45 (Dulcolax Supp) 10 mg DAILY PRN RECTAL 12/06/17 14:45 (Lactulose Liq) 30 ml DAILY PRN PO 12/06/17 14:45 (Eliquis) 5 mg BID PO 12/06/17 21:00 12/07/17 09:29 (Sinemet 25-100 Mg) 0.5 tab Q8HR PO 12/06/17 22:00 12/07/17 05:33 (Vitamin D3) 6,000 units DAILY PO 12/07/17 09:00 12/07/17 09:29 (Depakote Dr) 500 mg HS PO 12/06/17 21:00 12/06/17 21:33 (Lunesta) 2 mg HS PRN PO 12/06/17 15:00 (Neurontin) 300 mg TID PO 12/06/17 18:00 12/07/17 09:29 (Mag-Ox) 400 mg BID PO 12/06/17 21:00 12/07/17 09:29 (Melatonin) 5 mg HS PO 12/06/17 21:00 12/06/17 21:22 (SEROquel) 25 mg BID PO 12/06/17 21:00 12/07/17 09:29 (Inderal) 60 mg Q8HR PO 12/06/17 22:00 12/07/17 05:33 (Colestipol Pkt) 5 gm DAILY PO 12/07/17 09:00 (Vasotec Inj) 1.25 mg Q4H PRN IV PUSH 12/06/17 18:00 (NovoLOG SUPPLEMENTAL SCALE) 1 ACHS SQ 12/06/17 21:00 12/07/17 08:00 (D50w (Vial) Inj) 50 ml UNSCH PRN IV PUSH 12/06/17 18:00 (Glucagon Inj) 1 mg UNSCH PRN OTHER 12/06/17 18:00 Ceftriaxone Sodium 1000 mg/ Sodium Chloride 100 ml @ 200 mls/hr Q24H IV 12/07/17 08:00 12/07/17 09:28 Exam I&O / VS Vital Signs Date Time Temp Pulse Resp B/P (MAP) Pulse Ox O2 Delivery O2 Flow Rate FiO2 12/07/17 07:14 98.7 65 18 158/75 (102) 96 12/07/17 04:28 97.7 63 16 151/67 (95) 96 12/07/17 00:16 97.5 69 16 161/74 (103) 93 12/07/17 00:06 21 12/06/17 20:05 98.0 67 16 189/79 (115) 94 12/06/17 16:30 97.8 68 18 155/72 (99) 93 12/06/17 16:12 12/06/17 13:44 98.6 12/06/17 12:46 99 Room Air 12/06/17 12:20 70 18 162/70 (100) 97 Room Air General: Alert and Oriented, No acute distress Eye: EOMI Respiratory: Non-labored respirations Musculoskeletal: ROM Neurologic: Alert Psychiatric: Cooperative Exam Comments Pleasant 77-year-old female sitting up in bed finishing her breakfast was calm polite oriented to herself only was following one-step motor requests. States she lives in [facility]. Was able to name simple objects. Reduced vision in the right eye with reduced blink to threat pupils 4.5 mm sluggishly reactive with opacities noted bilaterally. No temporal tenderness neck supple no facial asymmetry mild postural tremor was able to raise all 4 extremities to gravity for at least greater than 5 seconds. Slight increased tone. Reflexes 1 + symmetric plantarflex response no clonus elicited. Review/Management Diagnosis/Plan: (1) Dementia ICD Codes: F03.90 - Unspecified dementia without behavioral disturbance Status: Chronic Plan: Dementia with apparent recent behavioral disturbance. Some mention of a psychiatrist being involved in the patient's care facility Exam grossly nonfocal to any new deficits however challenging due to patient's memory loss She has been afebrile no leukocytosis no significant abnormalities on her chemistries, UA negative Recommendations Not certain there is anything really new going on here EEG MRI/MRA of the brain PT evaluation If nothing acute is found she can go back to the longterm and be followed up in the outpatient setting (2) History of stroke ICD Codes: Z86.73 - Personal history of transient ischemic attack (TIA), and cerebral infarction without residual deficits Status: Chronic Plan: Limited records in this respect. May have had a retinal artery occlusion affecting the vision in her right eye (3) Chronic headaches ICD Codes: R51 - Headache Status: Chronic Plan: History chronic headaches looking at the past medical chart She has been on Depakote ER for this it appears Problem Qualifiers (1) Dementia: Qualified Codes: G30.0 - Alzheimer's disease with early onset; F02.81 - Dementia in other diseases classified elsewhere with behavioral disturbance Valdo Davis MD December 07, 2017 10:34
[2017-12-07 11:40] LABS: FREE T4 1.1 NG/DL (0.76-1.46)
--- NOTE | 2017-12-07 12:22 | MG ---
cc: Tramaine Garcia MD EEG NUMBER: [id number] INDICATIONS: White matter changes on the CT, atrial fibrillation. MEDICATIONS: Depakote, gabapentin. DESCRIPTION: Diffuse 5 Hz, 60 microvolt rhythm is seen. Recording overall is synchronous and symmetric. No epileptiform or seizure activity is noted. There are no hemisphere asymmetries. The patient does not reach stage II sleep. Photic stimulation is performed without significant posterior driving. One sharp wave is seen not as well on the transverse, but on the bipolar montage phase reversing over T4 at epoch 122 right after hyperventilation and a small sharply contoured wave is seen at epoch 116 at the start of hyperventilation at 25 Hz over the left temporal head region. IMPRESSION: Some slight bitemporal sharps. Most impressive is the 1 phase reversing over the T4 electrode, but there is no ongoing seizure activity. A right temporal or bitemporal seizure focus could be considered. MD EBONI Leonardo/JARRET , 11:53 AM , 12:22 PM
--- NOTE | 2017-12-07 12:35 | RADRPT ---
EXAM DATE/TIME: 12/07/2017 12:12 [facility] COMPARISON: CT BRAIN W/O CONTRAST, December 06, 2017, 13:49. INDICATIONS : CVA. MEDICAL HISTORY : Hypertension. Diabetes mellitus type 2. Dementia. AFIB, Thyroid. SURGICAL HISTORY : Hysterectomy. Appendectomy. Fusion, cervical. Tonsils. ENCOUNTER: Initial ACUITY: 1 day PAIN SCORE: 1/10 LOCATION: Bilateral cranial Please note a normal MRA of the brain does not entirely exclude the possibility of a small aneurysm, nor the possibility of distal intracranial vessel disease. TECHNIQUE: 3D time of flight MRA was performed. Source images, multiplanar STS MIP, and 3D volume MIP reconstru ctions were reviewed. FINDINGS: There is excellent visualization of the major intracranial arteries out to the second-order branch ve ssels. There is no evidence for aneurysm, vessel truncation or stenosis, and no evidence for vascula r malformation. CONCLUSION: Normal examination. Pablo Bansal MD on December 07, 2017 at 12:30 Board Certified Radiologist. This report was verified electronically.
--- NOTE | 2017-12-07 12:37 | RADRPT ---
EXAM DATE/TIME: 12/07/2017 12:12 [facility] COMPARISON: No previous studies available for comparison. INDICATIONS : CVA. MEDICAL HISTORY : Hypertension. Diabetes mellitus type 2. Cerebrovascular disease. Dementia, Parkinson, AFIB. SURGICAL HISTORY : Fusion, cervical. Hysterectomy. Appendectomy. Tonsils. ENCOUNTER: Initial ACUITY: 1 day PAIN SCORE: 1/10 LOCATION: Bilateral cranial TECHNIQUE: Multiplanar, multisequence MRI of the brain was performed without contrast. FINDINGS: There is mild symmetric central and cortical atrophic change. Patchy mild T2 prolongation in the alistair ventricular white matter which appears chronic and benign. There is no evidence of intracranial hemor rhage or mass. There is nothing to suggest acute infarction. There is moderate mucosal sinus disease with complete opacification of the right maxillary sinus, multiple right-sided ethmoid air cells and the frontal sinuses. CONCLUSION: No acute intracranial findings. Pablo Bansal MD on December 07, 2017 at 12:34 Board Certified Radiologist. This report was verified electronically.
[2017-12-07] MEDS ORDERED: POTASSIUM CHLORIDE 20 MEQ CONTROLLED RELEASE TAB PO ONE (12:45)
[2017-12-07] MEDS: COLESTIPOL HCL 5 GM PACKET PO SCH (12:56)
[2017-12-07] MEDS: ACETAMINOPHEN 325 MG TAB PO PRN (12:56)
--- NOTE | 2017-12-07 12:58 | HHI.PR ---
Subjective Remarks Follow up for AMS, UTI, increased confusion with hx of dementia. The patient is seen with RN at bedside. She is awake, alert, oriented to self and hospital only. She only complains of a mild headache but states she gets those all the time. Denies any lightheadedness, dizziness, visual changes, unilateral numbness /weakness, chest pain, shortness of breath, abdominal or urinary complaints. Objective Vitals Vital Signs Date Time Temp Pulse Resp B/P (MAP) Pulse Ox O2 Delivery O2 Flow Rate FiO2 12/07/17 07:14 98.7 65 18 158/75 (102) 96 12/07/17 04:28 97.7 63 16 151/67 (95) 96 12/07/17 00:16 97.5 69 16 161/74 (103) 93 12/07/17 00:06 21 12/06/17 20:05 98.0 67 16 189/79 (115) 94 12/06/17 16:30 97.8 68 18 155/72 (99) 93 12/06/17 16:12 12/06/17 13:44 98.6 12/06/17 12:46 99 Room Air Result Diagram: 12/07/17 0711 12/07/17 0711 Imaging Last Impressions Head CT 12/06/17 1233 Signed Impressions: Service Date/Time: Wednesday, December 06, 2017 13:49 - CONCLUSION: 1. Stable senescent changes and moderate periventricular ischemic white matter demyelination. 2. Complete opacification of the frontal sinuses, ethmoid air cells and right maxillary sinus. 3. No acute intracranial abnormality. Raul Rai MD Objective Remarks GENERAL: Well-nourished, well-developed elderly female patient in NAD. Pleasantly confused. SKIN: Warm and dry. No rash. HEENT: Normocephalic. Atraumatic. Pupils equal and round. Mucous membranes pink and moist. NECK: Supple. CARDIOVASCULAR: Regular rate and rhythm. No murmur appreciated. RESPIRATORY: No accessory muscle use. Clear to auscultation. Breath sounds equal bilaterally. GASTROINTESTINAL: Abdomen soft, non-tender, nondistended. Normoactive bowel sounds x4. MUSCULOSKELETAL: No obvious deformities. Extremities without clubbing, cyanosis , or edema. NEUROLOGICAL: Awake and alert, oriented to self and hospital only. No obvious cranial nerve deficits. Motor grossly within normal limits. Moving all extremities spontaneously. Normal speech. PSYCHIATRIC: Appropriate mood and affect; insight and judgment limited. Medications and IVs Current Medications Medications (Trade) Dose Ordered Sig/Luca Route Start Time Stop Time Status Last Admin Sodium Chloride 1,000 ml @ 75 mls/hr [id number] IV 12/06/17 15:00 12/06/17 17:36 (NS Flush) 2 ml UNSCH PRN IV FLUSH 12/06/17 14:45 (NS Flush) 2 ml BID IV FLUSH 12/06/17 21:00 12/07/17 09:29 (Tylenol) 650 mg Q4H PRN PO 12/06/17 14:45 (Reglan Inj) 5 mg Q6H PRN IV PUSH 12/06/17 14:45 (Narcan Inj) 0.4 mg UNSCH PRN IV PUSH 12/06/17 14:45 (Faby-Colace) 1 tab BID PO 12/06/17 21:00 12/07/17 09:29 (Milk Of Magnesia Liq) 30 ml Q12H PRN PO 12/06/17 14:45 (Senokot) 17.2 mg Q12H PRN PO 12/06/17 14:45 (Dulcolax Supp) 10 mg DAILY PRN RECTAL 12/06/17 14:45 (Lactulose Liq) 30 ml DAILY PRN PO 12/06/17 14:45 (Eliquis) 5 mg BID PO 12/06/17 21:00 12/07/17 09:29 (Sinemet 25-100 Mg) 0.5 tab Q8HR PO 12/06/17 22:00 12/07/17 05:33 (Vitamin D3) 6,000 units DAILY PO 12/07/17 09:00 12/07/17 09:29 (Depakote Dr) 500 mg HS PO 12/06/17 21:00 12/06/17 21:33 (Lunesta) 2 mg HS PRN PO 12/06/17 15:00 (Neurontin) 300 mg TID PO 12/06/17 18:00 12/07/17 09:29 (Mag-Ox) 400 mg BID PO 12/06/17 21:00 12/07/17 09:29 (Melatonin) 5 mg HS PO 12/06/17 21:00 12/06/17 21:22 (SEROquel) 25 mg BID PO 12/06/17 21:00 12/07/17 09:29 (Inderal) 60 mg Q8HR PO 12/06/17 22:00 12/07/17 05:33 (Colestipol Pkt) 5 gm DAILY PO 12/07/17 09:00 (Vasotec Inj) 1.25 mg Q4H PRN IV PUSH 12/06/17 18:00 (NovoLOG SUPPLEMENTAL SCALE) 1 ACHS SQ 12/06/17 21:00 12/07/17 08:00 (D50w (Vial) Inj) 50 ml UNSCH PRN IV PUSH 12/06/17 18:00 (Glucagon Inj) 1 mg UNSCH PRN OTHER 12/06/17 18:00 Ceftriaxone Sodium 1000 mg/ Sodium Chloride 100 ml @ 200 mls/hr Q24H IV 12/07/17 08:00 12/07/17 09:28 (KCl) 40 meq ONCE ONCE PO 12/07/17 12:45 12/07/17 12:46 UNV A/P Assessment and Plan 77-year-old female with PMH of CVA, dementia, HTN, Afib on Eliquis, Parkinson's presents to the emergency department for worsening confusion, AMS over the past week and gait disturbance for the past 2 days. Acute Encephalopathy/Confusion with hx of Dementia/Parkinson's: also reported Gait Abnormality. Symptoms new over the past week. Rule out CVA. -Head CT reviewed, no acute findings -UA mildly abnormal, will treat for UTI, see below -Depakote level 46, EEG pending -Monitor on telemetry -Neuro checks -Consult PT/OT/ST -Consult neurology, appreciate assistance -Brain MRI/MRA ordered and pending -Check 2d Echo -Continue patient's Carbidopa-Levodopa, hold Tylenol #3 and Xanax for now -Possible this is patient's new baseline dementia with progression of Parkinson's. Afib: chronic, rate controlled. -Continue propranolol and anticoagulation with Eliquis -monitor on telemetry -2D ECHO. Abnormal UA: urinalysis with small leuks. Given encephalopathy as above, will treat -continue IV Rocephin for now -monitor urine culture and adjust antibiotics as needed Hypertension: not well controlled -continue patient's antihypertensives including propranolol, norvasc, lisinopril -monitor BP, adjust antihypertensives as needed Hyperammonemia: possibly contributing to encephalopathy as above. Ammonia level 38 -will give lactulose x1 now -repeat ammonia level in am Hypokalemia: K 3.1. -give po KCl replacement -check mag -repeat BMP in am DVT Prophylaxis: scd/teds, continue eliquis Discharge Planning Discharge pending further clinical improvement, neurology work up, urine culture , PT/OT eval. Possibly discharge tomorrow if improved. Cayla Gallardo PA-C December 07, 2017 12:57
[2017-12-07] MEDS ORDERED: amLODIPine BESYLATE 5 MG TAB PO SCH (13:00)
--- NOTE | 2017-12-07 14:41 | HHI.FF ---
Face to Face Verification Diagnosis: (1) Dementia (2) History of CVA (cerebrovascular accident) (3) Parkinson's disease (4) Atrial fibrillation (5) Hypertension Physical Therapy Order: Evaluate and Treat, Improve ambulation, Strength and gait training Occupational Therapy Order: Evaluate and Treat, Improve ADL Home Health Nursing Order: Medical education Signs/symptoms of disease process Nursing assessment with vital signs Pipe Jeeper Order: To Evaluate: Living conditions/environment, Support services Order: To Provide: Long range planning, Community services I have seen patient Cinthia Carter on 12/07/17. My clinical findings support the need for the requested home health care services because: Deconditioned w/ increased weakness Med compliance is questionable Limited ability to care for self Impaired cognition/judgement I certify that my clinical findings support that this patient is homebound because: Impaired cognitive ability/safety Unsteady gait/balance Unsafe to leave home unassisted Unable to use public transportation Cayla Gallardo PA-C December 07, 2017 2:41 pm
[2017-12-07 15:53] LABS: HEMOGLOBIN A1C 5.4 % (4.3-6.0)
[2017-12-07] MEDS: LISINOPRIL 20 MG TAB PO SCH (23:08)
[2017-12-07] MEDS: MELATONIN 5 MG TAB PO SCH (23:08)
[2017-12-07] MEDS: DIVALPROEX DR 500 MG TABEC PO SCH (23:08)
[2017-12-08] VITALS (8 sets, daily range): BP systolic 138–177; BP diastolic 66–79; PULSE 66–72; RESP 16–20; TEMP 97.3–98.7; O2SAT 90–97
[2017-12-08 05:32] LABS: AUTOMATED NEUTROPHIL # 3.6 TH/MM3 (1.8-7.7); BASOPHIL # 0.1 TH/MM3 (0-0.2); BASOPHIL % 0.8 % (0.0-2.0); EOSINOPHIL # 0.2 TH/MM3 (0-0.4); EOSINOPHIL % 2.6 % (0.0-4.0); HEMATOCRIT 38.7 % (35.0-46.0); HEMOGLOBIN 12.9 GM/DL (11.6-15.3); LYMPH % 38.2 % (9.0-44.0); LYMPHOCYTE # 2.6 TH/MM3 (1.0-4.8); MEAN CORPUSCULAR HEMOGLOBIN 30.1 PG (27.0-34.0); MEAN CORPUSCULAR HGB CONC 33.4 % (32.0-36.0); MEAN PLATELET VOLUME 9.7 FL (7.0-11.0); MONO % 5.9 % (0.0-8.0); MONOCYTE # 0.4 TH/MM3 (0-0.9); NEUT % 52.5 % (16.0-70.0); PLATELET COUNT 176 TH/MM3 (150-450); RED CELL DISTRIBUTION WIDTH 14.7 % (11.6-17.2); WHITE BLOOD COUNT 6.9 TH/MM3 (4.0-11.0)
[2017-12-08 05:58] LABS: BICARBONATE 22.9 MEQ/L (21.0-32.0); CALCIUM 8.8 MG/DL (8.5-10.1); CREATININE 0.71 MG/DL (0.50-1.00); MAGNESIUM 2.2 MG/DL (1.5-2.5)
[2017-12-08] MEDS: PROPRANOLOL HCL 20 MG TAB PO SCH ×3 (06:16→21:42)
[2017-12-08] MEDS: SODIUM CHLOR 0.9% 1000 ML INJ 1,000 ML IV SCH ×2 (06:16→23:49)
[2017-12-08] MEDS: CARBIDOPA/LEVODOPA 25 MG/100 MG TAB PO SCH ×3 (06:16→21:43)
[2017-12-08] MEDS: INSULIN ASPART SUPPLEMENTAL SCALE SQ SCH ×4 (08:00→21:00)
[2017-12-08] MEDS: SODIUM CHLORIDE 0.9% FLUSH 10 ML FLUSH IV FLUSH SCH ×2 (08:19→21:00)
[2017-12-08] MEDS: DOCUSATE SODIUM 50 MG/SENNA 8.6 MG TAB PO SCH ×2 (08:22→21:42)
[2017-12-08] MEDS: MAGNESIUM OXIDE 400 MG TAB PO SCH ×2 (08:22→21:42)
[2017-12-08] MEDS: COLESTIPOL HCL 5 GM PACKET PO SCH (08:22)
[2017-12-08] MEDS: APIXABAN 5 MG TABLET PO SCH (08:22)
[2017-12-08] MEDS: GABAPENTIN 300 MG CAP PO SCH ×3 (08:22→18:20)
[2017-12-08] MEDS: CHOLECALCIFEROL (VIT D3) 1000 UNIT TAB PO SCH (08:23)
[2017-12-08] MEDS: QUEtiapine FUMARATE 25 MG TAB PO SCH ×2 (08:23→21:42)
[2017-12-08] MEDS: LISINOPRIL 20 MG TAB PO SCH ×2 (08:23→21:42)
--- NOTE | 2017-12-08 10:55 | HHI.PR ---
Review/Management Diagnosis/Plan: (1) Dementia ICD Codes: F03.90 - Unspecified dementia without behavioral disturbance Status: Chronic Plan: Dementia with apparent recent behavioral disturbance. Some mention of a psychiatrist being involved in the patient's care facility Exam grossly nonfocal to any new deficits however challenging due to patient's memory loss She has been afebrile no leukocytosis no significant abnormalities on her chemistries, UA negative Recommendations EEG - shows bitemporal sharps MRI/MRA of the brain - unremarkable, no acute changes PT evaluation Ammonia elevated- on Lactulose (2) History of stroke ICD Codes: Z86.73 - Personal history of transient ischemic attack (TIA), and cerebral infarction without residual deficits Status: Chronic Plan: Limited records in this respect. 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 Some mention of a psychiatrist being involved in the patient's care facility Exam grossly nonfocal to any new deficits however challenging due to patient's memory loss She has been afebrile no leukocytosis no significant abnormalities on her chemistries, UA negative Recommendations Dilantin added for abnormal EEG. Is also on Depakote however ammonia level slightly elevated next line MRI/MRA no acute lesion Follow-up Dilantin level in 1-2 weeks Can be discharged from neurologic standpoint follow-up outpatient setting Seen and examined discussed with PA. Agree with above (Valdo Davis MD) Subjective Subjective Comments No acute events reported No headache No chest pain No dyspnea denies any seizure activity Active Medications Current Medications Medications (Trade) Dose Ordered Sig/Luca Route Start Time Stop Time Status Last Admin Sodium Chloride 1,000 ml @ 75 mls/hr [id number] IV 12/06/17 15:00 12/08/17 06:16 (NS Flush) 2 ml UNSCH PRN IV FLUSH 12/06/17 14:45 (NS Flush) 2 ml BID IV FLUSH 12/06/17 21:00 12/07/17 09:29 (Tylenol) 650 mg Q4H PRN PO 12/06/17 14:45 12/07/17 12:56 (Reglan Inj) 5 mg Q6H PRN IV PUSH 12/06/17 14:45 (Narcan Inj) 0.4 mg UNSCH PRN IV PUSH 12/06/17 14:45 (Faby-Colace) 1 tab BID PO 12/06/17 21:00 12/07/17 23:07 (Milk Of Magnesia Liq) 30 ml Q12H PRN PO 12/06/17 14:45 (Senokot) 17.2 mg Q12H PRN PO 12/06/17 14:45 (Dulcolax Supp) 10 mg DAILY PRN RECTAL 12/06/17 14:45 (Lactulose Liq) 30 ml DAILY PRN PO 12/06/17 14:45 (Eliquis) 5 mg BID PO 12/06/17 21:00 12/08/17 08:22 (Sinemet 25-100 Mg) 0.5 tab Q8HR PO 12/06/17 22:00 12/08/17 06:16 (Vitamin D3) 6,000 units DAILY PO 12/07/17 09:00 12/08/17 08:23 (Depakote Dr) 500 mg HS PO 12/06/17 21:00 12/07/17 23:08 (Lunesta) 2 mg HS PRN PO 12/06/17 15:00 (Neurontin) 300 mg TID PO 12/06/17 18:00 12/08/17 08:22 (Mag-Ox) 400 mg BID PO 12/06/17 21:00 12/08/17 08:22 (Melatonin) 5 mg HS PO 12/06/17 21:00 12/07/17 23:08 (SEROquel) 25 mg BID PO 12/06/17 21:00 12/08/17 08:23 (Inderal) 60 mg Q8HR PO 12/06/17 22:00 12/08/17 06:16 (Colestipol Pkt) 5 gm DAILY PO 12/07/17 09:00 12/08/17 08:22 (Vasotec Inj) 1.25 mg Q4H PRN IV PUSH 12/06/17 18:00 (NovoLOG SUPPLEMENTAL SCALE) 1 ACHS SQ 12/06/17 21:00 12/07/17 08:00 (D50w (Vial) Inj) 50 ml UNSCH PRN IV PUSH 12/06/17 18:00 (Glucagon Inj) 1 mg UNSCH PRN OTHER 12/06/17 18:00 (Prinivil) 20 mg BID PO 12/07/17 21:00 12/08/17 08:23 (Norvasc) 10 mg DAILY PO 12/08/17 09:00 12/08/17 08:22 Allergies Allergies Coded Allergies Sulfa (Sulfonamide Antibiotics) (Unverified Allergy, Severe, Anaphylaxis, 12/06) iodine (Unverified Allergy, Severe, Anaphylaxis, 12/06/17) potassium iodide (Unverified Allergy, Severe, Anaphylaxis, 12/06/17) povidone-iodine (Unverified Allergy, Severe, Anaphylaxis, 12/06/17) sodium iodide (Unverified Allergy, Severe, Anaphylaxis, 12/06/17) sodium iodide (Unverified Allergy, Severe, Anaphylaxis, 12/06/17) (Kylah Mosley) Review of Systems All other ROS: ROS reviewed as documented in chart (Kylah Mosley) Exam I&O / VS 12/08/17 12/08/17 12/09/17 15:00 23:00 07:00 # Voids 1 # Bowel Movements 1 Vital Signs Date Time Temp Pulse Resp B/P (MAP) Pulse Ox O2 Delivery O2 Flow Rate FiO2 12/08/17 07:52 98.5 68 18 161/72 (101) 97 12/08/17 03:24 97.3 71 16 177/76 (109) 90 12/08/17 00:47 96 12/07/17 23:36 98.0 69 16 172/77 (108) 90 12/07/17 20:23 98.4 69 16 160/72 (101) 95 12/07/17 20:10 70 12/07/17 16:28 97.9 65 18 166/77 (106) 94 12/07/17 13:50 20 5/21/18 12:51 98.8 68 18 144/70 (94) 95 General: No acute distress Eye: EOMI Respiratory: Non-labored respirations Musculoskeletal: ROM Neurologic: Alert Psychiatric: Cooperative Exam Comments Oriented to herself only, cannot tell me the date or where we are. Cannot name the current president. Reduced vision in the right eye with reduced blink to threat pupils 3 mm sluggishly reactive with opacities noted bilaterally. No temporal tenderness neck supple no facial asymmetry moving all extremities against gravity, no tremor at rest or with action noted. no cogwheeling (Kylah Mosley) Objective Micro and Labs Laboratory Tests Test 12/08/17 05:11 White Blood Count 6.9 Red Blood Count 4.30 Hemoglobin 12.9 Hematocrit 38.7 Mean Corpuscular Volume 90.0 Mean Corpuscular Hemoglobin 30.1 Mean Corpuscular Hemoglobin Concent 33.4 Red Cell Distribution Width 14.7 Platelet Count 176 Mean Platelet Volume 9.7 Neutrophils (%) (Auto) 52.5 Lymphocytes (%) (Auto) 38.2 Monocytes (%) (Auto) 5.9 Eosinophils (%) (Auto) 2.6 Basophils (%) (Auto) 0.8 Neutrophils # (Auto) 3.6 Lymphocytes # (Auto) 2.6 Monocytes # (Auto) 0.4 Eosinophils # (Auto) 0.2 Basophils # (Auto) 0.1 CBC Comment DIFF FINAL Differential Comment Blood Urea Nitrogen 17 Creatinine 0.71 Random Glucose 92 Calcium Level 8.8 Magnesium Level 2.2 Sodium Level 143 Potassium Level 3.8 Chloride Level 109 Carbon Dioxide Level 22.9 Anion Gap 11 Estimat Glomerular Filtration Rate 80 Ammonia 38 Date/Time Source Procedure Growth Status 12/06/17 20:10 Urine Catheterized Urine Urine Culture - Final 10-50,000 CFU/ML MIXED DANYELL... Complete (Kylah Mosley) Problem Qualifiers (1) Dementia: Qualified Codes: G30.0 - Alzheimer's disease with early onset; F02.81 - Dementia in other diseases classified elsewhere with behavioral disturbance Kylah Mosley December 08, 2017 10:55 Valdo Davis MD December 08, 2017 15:42
--- NOTE | 2017-12-08 11:24 | HHI.PR ---
Subjective Remarks Follow-up on patient with altered mental status, increased confusion with history of dementia. Patient seen and examined. Patient states she feels well this morning. She denies any complaints except for mild headache which is chronic per her report. Patient denies taking Depakote. Patient denies any dizziness, lightheadedness or vision changes. She denies any fever chills. She denies any chest pain or shortness of breath. She denies any nausea, vomiting or abdominal pain. She denies any urinary difficulties, diarrhea or constipation. Objective Vitals Vital Signs Date Time Temp Pulse Resp B/P (MAP) Pulse Ox O2 Delivery O2 Flow Rate FiO2 12/08/17 07:52 98.5 68 18 161/72 (101) 97 12/08/17 03:24 97.3 71 16 177/76 (109) 90 12/08/17 00:47 96 12/07/17 23:36 98.0 69 16 172/77 (108) 90 12/07/17 20:23 98.4 69 16 160/72 (101) 95 12/07/17 20:10 70 12/07/17 16:28 97.9 65 18 166/77 (106) 94 12/07/17 13:50 20 12/07/17 12:51 98.8 68 18 144/70 (94) 95 I/O 12/07/17 12/07/17 12/07/17 12/08/17 12/08/17 12/08/17 07:00 15:00 23:00 07:00 15:00 23:00 # Voids 2 1 # Bowel Movements 2 1 Result Diagram: 12/08/17 0511 12/08/17 0511 Imaging Last Impressions Head Magnetic Resonance Angiography 12/07/17 0000 Signed Impressions: Service Date/Time: Thursday, December 07, 2017 12:12 - CONCLUSION: Normal examination. Pablo Bansal MD Brain MRI 12/07/17 0000 Signed Impressions: Service Date/Time: Thursday, December 07, 2017 12:12 - CONCLUSION: No acute intracranial findings. Pablo Bansal MD Head CT 12/06/17 1233 Signed Impressions: Service Date/Time: Wednesday, December 06, 2017 13:49 - CONCLUSION: 1. Stable senescent changes and moderate periventricular ischemic white matter demyelination. 2. Complete opacification of the frontal sinuses, ethmoid air cells and right maxillary sinus. 3. No acute intracranial abnormality. Raul Rai MD Objective Remarks GENERAL: Well-nourished, well-developed elderly female patient in NAD. Pleasantly confused. Awake and alert. SKIN: Warm and dry. No generalized rash. HEENT: Normocephalic. Atraumatic. Pupils equal and round. No nasal drainage or discharge. Airway patent. Mucous membranes pink and moist. NECK: Supple. CARDIOVASCULAR: Regular rate and rhythm. No murmur appreciated. RESPIRATORY: Nonlabored. Clear to auscultation. Breath sounds equal bilaterally. GASTROINTESTINAL: Abdomen soft, non-tender, nondistended. Normoactive bowel sounds x4. MUSCULOSKELETAL: No obvious deformities. Extremities without clubbing, cyanosis , or edema. NEUROLOGICAL: Awake and alert, oriented to self and hospital only. No obvious cranial nerve deficits. Motor grossly within normal limits. Moving all extremities spontaneously. Normal speech. PSYCHIATRIC: Appropriate mood and affect; insight and judgment limited. A/P Assessment and Plan 77-year-old female with PMH of CVA, dementia, HTN, Afib on Eliquis, Parkinson's presents to the emergency department for worsening confusion, AMS over the past week and gait disturbance for the past 2 days. Acute Encephalopathy/Confusion with hx of Dementia/Parkinson's: also reported Gait Abnormality. Symptoms new over the past week. Rule out CVA. Possible this is patient's new baseline dementia with progression of Parkinson's Head CT, MRI and MRA brain with no acute findings UCX with mixed mariah, probable contaminants EEG abnormal, possible seizure - started on loading dose of Dilantin followed by Dilantin 150mg BID per Neuro -Neurology following, continue to f/u on recommendations -continue to monitor on telemetry -Neuro checks -ST for cognitive evaluation -Check 2d Echo/pending -Continue patient's Carbidopa-Levodopa, hold Tylenol #3 and Xanax for now Afib: chronic, rate controlled. -Continue propranolol and anticoagulation with Eliquis -monitor on telemetry -2D ECHO pending Hypertension, not well controlled -Continue lisinopril 20 mg twice daily -Increase Norvasc to 10 mg daily -Continue to monitor BP and adjust treatment accordingly Abnormal UA: urinalysis with small leuks. UCX with mixed mariah, probable contaminants -Discontinue IV Rocephin Hypertension: not well controlled -continue patient's antihypertensives including propranolol, norvasc, lisinopril -monitor BP, adjust antihypertensives as needed Hyperammonemia: possibly contributing to encephalopathy as above. Ammonia level 38 -Given lactulose 1 Hypokalemia: K 3.1, resolved status post repletion DVT Prophylaxis: scd/teds, continue eliquis Discharge Planning Not ready for discharge, workup in progress. Possible discharge tomorrow pending echo results and neurology clearance. Discussed with case management safe discharge at current [facility] facility given cognitive impairment. Paty Quintero December 08, 2017 11:24
[2017-12-08] MEDS ORDERED: PHENYTOIN INJ 1,000 MG in SODIUM CHLORIDE 0.9% INJ 100 ML IV ONE (12:00)
[2017-12-08] MEDS ORDERED: LIDOCAINE 1%/EPINEPHrine 1:100,000 SOLN 30 ML VIAL ONE (16:24)
[2017-12-08] MEDS ORDERED: LIDOCAINE 2%/EPINEPHrine PF 1:200,000 20ML SDV INFIL ONE (16:30)
--- NOTE | 2017-12-08 16:30 | PD ---
Physical Exam Date Seen by Provider: December 08, 2017 Time Seen by Provider: 16:28 Narrative 77-year-old female with laceration to the forehead after mechanical fall. I was asked by [facility] team to repair laceration for the patient as she is in the ER currently. My attending Dr. Christianson states that this is okay to do. Data Data Last Documented VS Vital Signs Date Time Temp Pulse Resp B/P (MAP) Pulse Ox O2 Delivery O2 Flow Rate FiO2 12/06/17 13:44 98.6 12/06/17 12:46 99 Room Air 12/06/17 12:20 70 18 Orders Orders Electrocardiogram (12/06/17 12:33) Ammonia (12/06/17 12:33) Complete Blood Count With Diff (12/06/17 12:33) Comprehensive Metabolic Panel (12/06/17 12:33) Creatine Kinase (Cpk) (12/06/17 12:33) Prothrombin Time / Inr (Pt) (12/06/17 12:33) Act Partial Throm Time (Ptt) (12/06/17 12:33) Troponin I (12/06/17 12:33) Urinalysis - C+S If Indicated (12/06/17 12:33) Ct Brain W/O Iv Contrast(Rout) (12/06/17 12:33) Blood Glucose (12/06/17 12:33) Ecg Monitoring (12/06/17 12:33) Iv Access Insert/Monitor (12/06/17 12:33) Oximetry (12/06/17 12:33) Sodium Chloride 0.9% Flush (Ns Flush) (12/06/17 12:45) Valproic Acid (Depakene) (12/06/17 12:33) Admit Order (Ed Use Only) (12/06/17 14:31) Labs Laboratory Tests Test 12/06/17 12:35 12/06/17 12:40 White Blood Count 9.3 TH/MM3 Red Blood Count 4.19 MIL/MM3 Hemoglobin 12.5 GM/DL Hematocrit 37.6 % Mean Corpuscular Volume 89.8 FL Mean Corpuscular Hemoglobin 30.0 PG Mean Corpuscular Hemoglobin Concent 33.4 % Red Cell Distribution Width 14.7 % Platelet Count 177 TH/MM3 Mean Platelet Volume 9.8 FL Neutrophils (%) (Auto) 71.2 % Lymphocytes (%) (Auto) 22.2 % Monocytes (%) (Auto) 5.0 % Eosinophils (%) (Auto) 1.1 % Basophils (%) (Auto) 0.5 % Neutrophils # (Auto) 6.6 TH/MM3 Lymphocytes # (Auto) 2.1 TH/MM3 Monocytes # (Auto) 0.5 TH/MM3 Eosinophils # (Auto) 0.1 TH/MM3 Basophils # (Auto) 0.0 TH/MM3 CBC Comment DIFF FINAL Differential Comment Prothrombin Time 11.5 SEC Prothromb Time International Ratio 1.1 RATIO Activated Partial Thromboplast Time 36.6 SEC Blood Urea Nitrogen 24 MG/DL Creatinine 0.78 MG/DL Random Glucose 89 MG/DL Total Protein 7.4 GM/DL Albumin 3.4 GM/DL Calcium Level 8.5 MG/DL Alkaline Phosphatase 70 U/L Aspartate Amino Transf (AST/SGOT) 11 U/L Alanine Aminotransferase (ALT/SGPT) 10 U/L Total Bilirubin 0.4 MG/DL Sodium Level 139 MEQ/L Potassium Level 3.6 MEQ/L Chloride Level 104 MEQ/L Carbon Dioxide Level 25.8 MEQ/L Anion Gap 9 MEQ/L Estimat Glomerular Filtration Rate 72 ML/MIN Hemoglobin A1c 5.4 % Total Creatine Kinase 34 U/L Troponin I LESS THAN 0.02 NG/ML Valproic Acid (Depakene) Level 46 MCG/ML Ammonia 38 MCMOL/L MDM Medical Record Reviewed: Yes Supervised Visit with THU: No Procedures Procedure Narrative LACERATION LOCATION: forehead laceration LENGTH: 3 cm NUMBER OF STITCHES/ANGELICA: 12 sutures REPAIR: The area of the laceration was prepped with Betadine and sterilely draped. The laceration was infiltrated with 1% Xylocaine. The wound was copiously irrigated and explored without evidence of foreign body, tendon injury or neurovascular injury. The wound was closed using 5-0 Prolene. This was a 1 layer repair. A sterile dressing was applied. The patient was advised to keep the dressing clean and dry. Patient tolerated the procedure well. Diagnosis Primary Impression: Neurological abnormality Rob Mitchell December 08, 2017 16:30
--- NOTE | 2017-12-08 17:10 | RADRPT ---
EXAM DATE: 12/08/2017 5:02 PM EDT AGE/SEX: 77 years / Female INDICATIONS: Back pain after fall. CLINICAL DATA: This is the patient's initial encounter. Patient reports that signs and symptoms have been present for 1 day and indicates a pain score of 9/10. MEDICAL/SURGICAL HISTORY: . Stroke. Parkinsons's disease, dementia. None. COMPARISON: No prior [facility] exams available for comparison. FINDINGS: The bony structures are grossly intact. There is scoliosis with curvature of the thoracic s pine to the right. There is mild to moderate degenerative changes throughout the thoracic spine. No p araspinal soft tissue swelling. No compression fracture injuries are demonstrated. CONCLUSION: 1. Primary degenerative changes throughout the thoracic spine. 2. Scoliosis with curvature of the thoracic spine to the right. 3. No acute bony fracture. Electronically signed by: Forrest Rucker MD 12/08/2017 5:09 PM EDT
--- NOTE | 2017-12-08 17:13 | RADRPT ---
EXAM DATE: 12/08/2017 5:02 PM EDT AGE/SEX: 77 years / Female INDICATIONS: Fall, hit forehead CLINICAL DATA: This is the patient's initial encounter. Patient reports that signs and symptoms have been present for 1 day and indicates a pain score of 5/10. MEDICAL/SURGICAL HISTORY: Transient ischemic attack. Cardiovascular disease. Parkinsons, Dementia Hysterectomy. RADIATION DOSE: 39.43 CTDI (mGy) COMPARISON: [facility] – [place], [place] BRAIN W/O CONTRAST, 12/06/2017. . TECHNIQUE: CT of the head without contrast. Using automated exposure control and adjustment of the mA and/or kV according to patient size, radiation dose was kept as low as reasonably achievable to ob tain optimal diagnostic quality images. FINDINGS: Cerebrum: The ventricles are normal for age. Stable bilateral cortical atrophy. No evidence of midl ine shift, mass lesion, hemorrhage or acute infarction. No extraaxial fluid collections are seen. Posterior Fossa: The cerebellum and brainstem are intact. The 4th ventricle is midline. The cerebe llopontine angle is unremarkable. Extracranial: The visualized portion of the orbits is intact. Stable chronic sinus disease on the ri ght side including the frontal sinuses, ethmoid and maxillary sinuses. Skull: The calvaria is intact. No evidence of skull fracture. Post Contrast: No abnormal areas of parenchymal or dural enhancement. No evidence of blood-brain ba rrier breakdown. No significant change compared to the prior exam. CONCLUSION: 1. Stable and unremarkable CT scan of the brain for patient's age. 2. Chronic sinus disease involving the right maxillary, ethmoid and frontal sinuses. Electronically signed by: Forrest Rucker MD 12/08/2017 5:12 PM EDT
[2017-12-08] MEDS: DIVALPROEX DR 500 MG TABEC PO SCH (21:42)
[2017-12-08] MEDS: MELATONIN 5 MG TAB PO SCH (21:42)
[2017-12-08] MEDS: PHENYTOIN SODIUM 100 MG CAP PO SCH (21:42)
[2017-12-08] MEDS: PHENYTOIN 50 MG CHEWABLE TAB PO SCH (21:43)
[2017-12-09] VITALS (8 sets, daily range): BP systolic 138–189; BP diastolic 63–84; PULSE 66–74; RESP 16–20; TEMP 98–98.9; O2SAT 93–96
[2017-12-09] MEDS: PROPRANOLOL HCL 20 MG TAB PO SCH ×3 (06:11→21:38)
[2017-12-09] MEDS: CARBIDOPA/LEVODOPA 25 MG/100 MG TAB PO SCH ×3 (06:11→21:38)
[2017-12-09] MEDS: INSULIN ASPART SUPPLEMENTAL SCALE SQ SCH ×4 (09:12→21:59)
[2017-12-09] MEDS: SODIUM CHLORIDE 0.9% FLUSH 10 ML FLUSH IV FLUSH SCH ×2 (09:19→21:37)
[2017-12-09] MEDS: COLESTIPOL HCL 5 GM PACKET PO SCH (09:20)
[2017-12-09] MEDS: PHENYTOIN SODIUM 100 MG CAP PO SCH ×2 (09:22→21:37)
[2017-12-09] MEDS: PHENYTOIN 50 MG CHEWABLE TAB PO SCH ×2 (09:22→21:37)
[2017-12-09] MEDS: MAGNESIUM OXIDE 400 MG TAB PO SCH ×2 (09:23→21:37)
[2017-12-09] MEDS: GABAPENTIN 300 MG CAP PO SCH ×3 (09:23→18:11)
[2017-12-09] MEDS: LISINOPRIL 20 MG TAB PO SCH ×2 (09:25→21:38)
[2017-12-09] MEDS: DOCUSATE SODIUM 50 MG/SENNA 8.6 MG TAB PO SCH ×2 (09:25→21:37)
[2017-12-09] MEDS: QUEtiapine FUMARATE 25 MG TAB PO SCH ×2 (09:26→21:38)
[2017-12-09] MEDS: CHOLECALCIFEROL (VIT D3) 1000 UNIT TAB PO SCH (09:26)
[2017-12-09] MEDS: SODIUM CHLOR 0.9% 1000 ML INJ 1,000 ML IV SCH (09:28)
--- NOTE | 2017-12-09 09:29 | HHI.PR ---
Review/Management Diagnosis/Plan: (1) Dementia ICD Codes: F03.90 - Unspecified dementia without behavioral disturbance Status: Chronic Plan: Dementia with apparent recent behavioral disturbance. Some mention of a psychiatrist being involved in the patient's care facility Exam grossly nonfocal to any new deficits however challenging due to patient's memory loss She has been afebrile no leukocytosis no significant abnormalities on her chemistries, UA negative Depakote however ammonia level slightly elevated next line MRI/MRA no acute lesion Repeat CT brain noncontrast no acute lesion Dilantin level therapeutic Recommendations Neuro stable Dilantin added for abnormal EEG. Follow-up Dilantin level in 1 weeks; fax levels to our office Can be discharged from neurologic standpoint follow-up outpatient setting in 1- 2 weeks (2) Atrial fibrillation ICD Codes: I48.91 - Unspecified atrial fibrillation Status: Chronic Plan: Per medical service On anticoagulation; held after she had a laceration from a mechanical fall Resume when feasible (3) Hypertension ICD Codes: I10 - Essential (primary) hypertension Status: Chronic Plan: Blood pressure control goal of less than 120/80 (4) Parkinson's disease ICD Codes: G20 - Parkinson's disease Status: Chronic Plan: On Sinemet Subjective Subjective Comments Apparently had a mechanical fall laceration sutured by the ER service No complaints this morning No headache No chest pain No dyspnea Active Medications Current Medications Medications (Trade) Dose Ordered Sig/Luca Route Start Time Stop Time Status Last Admin Sodium Chloride 1,000 ml @ 75 mls/hr [id number] IV 12/06/17 15:00 12/08/17 23:49 (NS Flush) 2 ml UNSCH PRN IV FLUSH 12/06/17 14:45 (NS Flush) 2 ml BID IV FLUSH 12/06/17 21:00 12/07/17 09:29 (Tylenol) 650 mg Q4H PRN PO 12/06/17 14:45 12/07/17 12:56 (Reglan Inj) 5 mg Q6H PRN IV PUSH 12/06/17 14:45 (Narcan Inj) 0.4 mg UNSCH PRN IV PUSH 12/06/17 14:45 (Faby-Colace) 1 tab BID PO 12/06/17 21:00 12/08/17 21:42 (Milk Of Magnesia Liq) 30 ml Q12H PRN PO 12/06/17 14:45 (Senokot) 17.2 mg Q12H PRN PO 12/06/17 14:45 (Dulcolax Supp) 10 mg DAILY PRN RECTAL 12/06/17 14:45 (Lactulose Liq) 30 ml DAILY PRN PO 12/06/17 14:45 (Eliquis) 5 mg BID PO 12/06/17 21:00 Future Hold 12/08/17 08:22 (Sinemet 25-100 Mg) 0.5 tab Q8HR PO 12/06/17 22:00 12/09/17 06:11 (Vitamin D3) 6,000 units DAILY PO 12/07/17 09:00 12/08/17 08:23 (Depakote Dr) 500 mg HS PO 12/06/17 21:00 12/08/17 21:42 (Lunesta) 2 mg HS PRN PO 12/06/17 15:00 (Neurontin) 300 mg TID PO 12/06/17 18:00 12/08/17 18:20 (Mag-Ox) 400 mg BID PO 12/06/17 21:00 12/08/17 21:42 (Melatonin) 5 mg HS PO 12/06/17 21:00 12/08/17 21:42 (SEROquel) 25 mg BID PO 12/06/17 21:00 12/08/17 21:42 (Inderal) 60 mg Q8HR PO 12/06/17 22:00 12/09/17 06:11 (Colestipol Pkt) 5 gm DAILY PO 12/07/17 09:00 12/08/17 08:22 (Vasotec Inj) 1.25 mg Q4H PRN IV PUSH 12/06/17 18:00 (NovoLOG SUPPLEMENTAL SCALE) 1 ACHS SQ 12/06/17 21:00 12/08/17 13:35 (D50w (Vial) Inj) 50 ml UNSCH PRN IV PUSH 12/06/17 18:00 (Glucagon Inj) 1 mg UNSCH PRN OTHER 12/06/17 18:00 (Prinivil) 20 mg BID PO 12/07/17 21:00 12/08/17 21:42 (Norvasc) 10 mg DAILY PO 12/08/17 09:00 12/08/17 08:22 (Dilantin) 100 mg Q12HR PO 12/08/17 21:00 12/08/17 21:42 (Dilantin Infatabs Chew) 50 mg BID PO 12/08/17 21:00 12/08/17 21:43 Allergies Allergies Coded Allergies Sulfa (Sulfonamide Antibiotics) (Unverified Allergy, Severe, Anaphylaxis, 12/06) iodine (Unverified Allergy, Severe, Anaphylaxis, 12/06/17) potassium iodide (Unverified Allergy, Severe, Anaphylaxis, 12/06/17) povidone-iodine (Unverified Allergy, Severe, Anaphylaxis, 12/06/17) sodium iodide (Unverified Allergy, Severe, Anaphylaxis, 12/06/17) sodium iodide (Unverified Allergy, Severe, Anaphylaxis, 12/06/17) Review of Systems All other ROS: ROS reviewed as documented in chart Exam I&O / VS Vital Signs Date Time Temp Pulse Resp B/P (MAP) Pulse Ox O2 Delivery O2 Flow Rate FiO2 12/09/17 08:22 98.4 67 20 173/79 (110) 94 12/09/17 07:16 67 12/09/17 04:48 98.0 67 16 153/72 (99) 93 12/09/17 01:39 66 16 152/71 (98) 94 12/09/17 00:58 98.3 70 16 189/84 (119) 94 12/08/17 23:30 66 12/08/17 21:00 98.7 72 16 168/77 (107) 94 12/08/17 16:23 69 20 165/79 (107) 97 12/08/17 14:57 98.7 68 18 138/66 (90) 95 12/08/17 11:06 98.4 66 20 157/71 (99) 93 General: No acute distress Eye: EOMI Respiratory: Non-labored respirations Musculoskeletal: ROM Neurologic: Alert Psychiatric: Cooperative Exam Comments Awake alert oriented 1-2. Pleasant, follows motor request. Was able to name simple objects. Impaired short-term memory, reduced vision in the right eye with reduced blink to threat pupils 4.5 mm sluggishly reactive with opacities noted bilaterally. No temporal tenderness neck supple no facial asymmetry mild postural tremor was able to raise all 4 extremities to gravity for at least greater than 5 seconds. Slight increased tone. Reflexes 1+ symmetric plantarflex response no clonus elicited. Objective Micro and Labs Laboratory Tests Test 12/09/17 05:46 Phenytoin (Dilantin) Level 10.2 Date/Time Source Procedure Growth Status 12/06/17 20:10 Urine Catheterized Urine Urine Culture - Final 10-50,000 CFU/ML MIXED DANYELL... Complete Problem Qualifiers (1) Dementia: Qualified Codes: G30.0 - Alzheimer's disease with early onset; F02.81 - Dementia in other diseases classified elsewhere with behavioral disturbance (2) Hypertension: Qualified Codes: I10 - Essential (primary) hypertension Valdo Davis MD December 09, 2017 09:29
[2017-12-09] MEDS ORDERED: DILA100C PO (13:45)
[2017-12-09] MEDS ORDERED: AMLO10 PO (13:45)
[2017-12-09] MEDS ORDERED: DILA50CH PO (13:45)
--- NOTE | 2017-12-09 13:52 | HHI.DS ---
Discharge Summary Admission Date December 06, 2017 at 14:33 Discharge Date: December 10, 2017 Admitting Diagnosis AMS, gait instability, neurological changes (1) Encephalopathy acute ICD Code: G93.40 - Encephalopathy, unspecified (2) Forehead laceration ICD Code: S01.81XA - Laceration without foreign body of other part of head, initial encounter (3) Neurological abnormality ICD Code: R29.818 - Other symptoms and signs involving the nervous system Status: Acute (4) Abnormal EEG ICD Code: R94.01 - Abnormal electroencephalogram [EEG] Status: Acute (5) Dementia ICD Code: F03.90 - Unspecified dementia without behavioral disturbance Status: Chronic (6) Chronic headaches ICD Code: R51 - Headache Status: Chronic (7) History of CVA (cerebrovascular accident) ICD Code: Z86.73 - Personal history of transient ischemic attack (TIA), and cerebral infarction without residual deficits (8) Atrial fibrillation ICD Code: I48.91 - Unspecified atrial fibrillation Status: Chronic (9) Parkinson's disease ICD Code: G20 - Parkinson's disease Status: Chronic (10) Hypertension ICD Code: I10 - Essential (primary) hypertension Status: Chronic Procedures LACERATION LOCATION: forehead laceration LENGTH: 3 cm NUMBER OF STITCHES/ANGELICA: 12 sutures REPAIR: The area of the laceration was prepped with Betadine and sterilely draped. The laceration was infiltrated with 1% Xylocaine. The wound was copiously irrigated and explored without evidence of foreign body, tendon injury or neurovascular injury. The wound was closed using 5-0 Prolene. This was a 1 layer repair. A sterile dressing was applied. The patient was advised to keep the dressing clean and dry. Patient tolerated the procedure well. Brief History - From Admission 77-year-old female with PMH of CVA, dementia, HTN, Afib on eliquis, Parkinson's presents to the emergency department with her daughter at bedside for evaluation altered mental status from [facility]. According to the custodial notes , the patient has been more altered than normal. She has been with an unsteady gait, more confused, not able to bring a drink to her face to drink. The daughter states that she has history of dementia and has been declining over the past several months. However, these symptoms are new as of 1 week ago. She states she has not seen the patient since November 11 when the patient became verbally aggressive with her. She got a psychiatrist involved at that time. The patient reports chronic bilateral headache to me. She denies any chest pain shortness breath. No abdominal pain. No nausea, vomiting, diarrhea. Patient has history of CVA. 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 CBC/BMP: 12/08/17 0511 12/08/17 0511 Significant Findings Laboratory Tests Test 12/06/17 20:10 12/07/17 07:11 12/08/17 05:11 12/09/17 05:46 Urine Leukocyte Esterase SMALL (NEG) Urine Bacteria RARE /hpf (NONE) Red Blood Count 3.85 MIL/MM3 (4.00-5.30) Hemoglobin 11.5 GM/DL (11.6-15.3) Hematocrit 34.7 % (35.0-46.0) Calcium Level 8.2 MG/DL (8.5-10.1) Potassium Level 3.1 MEQ/L (3.5-5.1) Chloride Level 111 MEQ/L (98-107) 109 MEQ/L (98-107) Vitamin B12 Level 1172 PG/ML (193-986) Estimat Glomerular Filtration Rate 80 ML/MIN (>89) Ammonia 38 MCMOL/L (11-32) Imaging Last Impressions Thoracic Spine X-Ray 12/08/17 0000 Signed Impressions: CONCLUSION: Head CT 12/08/17 0000 Signed Impressions: CONCLUSION: Head Magnetic Resonance Angiography 12/07/17 0000 Signed Impressions: Service Date/Time: Thursday, December 07, 2017 12:12 - CONCLUSION: Normal examination. Pablo Bansal MD Brain MRI 12/07/17 0000 Signed Impressions: Service Date/Time: Thursday, December 07, 2017 12:12 - CONCLUSION: No acute intracranial findings. Pablo Bansal MD PE at Discharge GENERAL: Well-nourished, well-developed elderly female patient in [facility]. Pleasantly confused. Awake and alert. SKIN: Warm and dry. No generalized rash. HEENT: Normocephalic. Atraumatic. Pupils equal and round. No nasal drainage or discharge. Airway patent. Mucous membranes pink and moist. NECK: Supple. CARDIOVASCULAR: Regular rate and rhythm. No murmur appreciated. RESPIRATORY: Nonlabored. Clear to auscultation. Breath sounds equal bilaterally. GASTROINTESTINAL: Abdomen soft, non-tender, nondistended. Normoactive bowel sounds x4. MUSCULOSKELETAL: No obvious deformities. Extremities without clubbing, cyanosis , or edema. NEUROLOGICAL: Awake and alert, oriented to self and hospital only. No obvious cranial nerve deficits. Motor grossly within normal limits. Moving all extremities spontaneously. Normal speech. PSYCHIATRIC: Appropriate mood and affect; insight and judgment limited. Pt update on day of discharge Patient seen and examined. Patient complaining of headache this morning. CT scan of the head obtained due to recent fall with head injury/laceration and on Eliquis. CT scan of head negative for acute intracranial process. Patient denies any associated complaints such as vision changes, dizziness, lightheadedness, weakness, numbness or tingling. Patient denies any fever chills. Denies any chest pain or shortness of breath. Denies any urinary difficulties or diarrhea. Discussed with nursing staff, no acute issues noted. Hospital Course 77-year-old female with PMH of CVA, dementia, HTN, Afib on Eliquis, Parkinson's presents to the emergency department for worsening confusion, AMS over the past week and gait disturbance for the past 2 days. Acute Encephalopathy/Confusion with hx of Dementia/Parkinson's: also reported Gait Abnormality. Symptoms new over the past week. Rule out CVA. Possible this is patient's new baseline dementia with progression of Parkinson's Head CT, MRI and MRA brain with no acute findings UCX with mixed mariah, probable contaminants EEG abnormal, possible seizure - started on loading dose of Dilantin followed by Dilantin 150mg BID per Neuro -Neurology following, cleared for d/c, f/u in 2 weeks. Goal BP less than 120/80 -continue to monitor on telemetry -Neuro checks -ST for cognitive evaluation - moderate cognitive deficit PATIENT WOULD BENEFIT FROM SUPERVISION (SUCH POSSIBLE MEMORY UNIT) BUT APPEARS APPROPRIATE FOR RETURN TO [facility]. -2d Echo EF 50-55%, grade I diastolic dysfunction -Continue patient's Carbidopa-Levodopa, hold Tylenol #3 and Xanax for now s/p mechanical fall in her room 12/08/17 resulting in a 3 cm laceration over left supraorbital area Status post closure with interrupted sutures Stat CT of the head obtained negative for acute intracranial process Thoracic spine x-ray obtained negative for acute fracture dislocation -Continue to monitor wound healing -Sutures to be removed in 7 days from 12/08 Cephalgia Patient with hx of chronic headaches on multiple medications Concern for possible bleed 2/2 recent fall with head lac and resumption of Eliquis yesterday -12/[address] head to r/o bleed - negative for acute intracranial process -trial of Fioricet Afib: chronic, rate controlled. -Continue propranolol and anticoagulation with Eliquis -monitor on telemetry -2D ECHO EF 50-55%, grade I diastolic dysfunction Hypertension -Continue lisinopril 20 mg twice daily -Continue Norvasc 10 mg daily -continue Hydralazine 25mg po TID -Continue to monitor BP and adjust treatment accordingly Hyperammonemia: possibly contributing to encephalopathy as above. Ammonia level 38 -Given lactulose 1 Hypokalemia: K 3.1, resolved status post repletion DVT Prophylaxis: scd/teds, continue eliquis Pt Condition on Discharge: Stable Discharge Disposition: [facility] with C Discharge Time: > 30 minutes Discharge Instructions DIET: Follow Instructions for: Heart Healthy Diet Speech Therapy-Diet Recommends: Regular Activities you can perform: Regular-No Restrictions Other Activity Instructions: Per PT recommendations Follow up Referrals: Neurology - 1 Week with Valdo Davis MD PCP Follow-up - 1 Week Paty Quintero December 09, 2017 13:52
--- NOTE | 2017-12-09 13:57 | HHI.PR ---
Subjective Remarks Follow-up on patient with altered mental status, increased confusion with history of dementia. Patient seen and examined. Patient denies any complaints this morning. States she feels well. She denies any complaints of headache, vision changes or dizziness. She denies any fever chills. Denies any chest pain or shortness of breath. Denies any nausea, vomiting or abdominal pain. Patient status post mechanical fall yesterday in her room and suffered a 3 cm forehead laceration. Patient underwent closure with [address] of the head failed to show any acute intracranial abnormalities. X-rays of thoracic spine did not show any evidence of acute fracture or dislocation. Objective Vitals Vital Signs Date Time Temp Pulse Resp B/P (MAP) Pulse Ox O2 Delivery O2 Flow Rate FiO2 12/09/17 11:35 98.0 72 18 144/71 (95) 96 12/09/17 08:22 98.4 67 20 173/79 (110) 94 12/09/17 07:16 67 12/09/17 04:48 98.0 67 16 153/72 (99) 93 12/09/17 01:39 66 16 152/71 (98) 94 12/09/17 00:58 98.3 70 16 189/84 (119) 94 12/08/17 23:30 66 12/08/17 21:00 98.7 72 16 168/77 (107) 94 12/08/17 16:23 69 20 165/79 (107) 97 12/08/17 14:57 98.7 68 18 138/66 (90) 95 I/O 12/08/17 12/08/17 12/08/17 12/09/17 12/09/17 12/09/17 07:00 15:00 23:00 07:00 15:00 23:00 Intake Total 240 ml Balance 240 ml Intake Oral 240 ml # Voids 4 # Bowel Movements 1 Result Diagram: 12/08/17 0511 12/08/17 0511 Imaging Last Impressions Thoracic Spine X-Ray 12/08/17 0000 Signed Impressions: CONCLUSION: Head CT 12/08/17 0000 Signed Impressions: CONCLUSION: Head Magnetic Resonance Angiography 12/07/17 0000 Signed Impressions: Service Date/Time: Thursday, December 07, 2017 12:12 - CONCLUSION: Normal examination. Pablo Bansal MD Brain MRI 12/07/17 0000 Signed Impressions: Service Date/Time: Thursday, December 07, 2017 12:12 - CONCLUSION: No acute intracranial findings. Pablo Bansal MD Objective Remarks GENERAL: Well-nourished, well-developed elderly female patient in [place]. Pleasantly confused. Awake and alert. Oriented x 1-2. SKIN: Warm and dry. No generalized rash. HEENT: Normocephalic. Atraumatic. Pupils equal and round. No nasal drainage or discharge. Airway patent. Mucous membranes pink and moist. +well approximated 3cm laceration over left supraorbital area, sutures intact, appears to be healing well with no evidence of infection. NECK: Supple. CARDIOVASCULAR: Regular rate and rhythm. No murmur appreciated. RESPIRATORY: Nonlabored. Clear to auscultation. Breath sounds equal bilaterally. GASTROINTESTINAL: Abdomen soft, non-tender, nondistended. Normoactive bowel sounds x4. MUSCULOSKELETAL: No obvious deformities. Extremities without clubbing, cyanosis , or edema. NEUROLOGICAL: Awake and alert, oriented to self and hospital only. No obvious cranial nerve deficits. Motor grossly within normal limits. Moving all extremities spontaneously. Normal speech. PSYCHIATRIC: Appropriate mood and affect; insight and judgment limited. Procedures LACERATION LOCATION: forehead laceration LENGTH: 3 cm NUMBER OF STITCHES/ANGELICA: 12 sutures REPAIR: The area of the laceration was prepped with Betadine and sterilely draped. The laceration was infiltrated with 1% Xylocaine. The wound was copiously irrigated and explored without evidence of foreign body, tendon injury or neurovascular injury. The wound was closed using 5-0 Prolene. This was a 1 layer repair. A sterile dressing was applied. The patient was advised to keep the dressing clean and dry. Patient tolerated the procedure well. A/P Problem List: (1) Encephalopathy acute ICD Code: G93.40 - Encephalopathy, unspecified (2) Forehead laceration ICD Code: S01.81XA - Laceration without foreign body of other part of head, initial encounter (3) Neurological abnormality ICD Code: R29.818 - Other symptoms and signs involving the nervous system Status: Acute (4) Abnormal EEG ICD Code: R94.01 - Abnormal electroencephalogram [EEG] Status: Acute (5) Dementia ICD Code: F03.90 - Unspecified dementia without behavioral disturbance Status: Chronic (6) Chronic headaches ICD Code: R51 - Headache Status: Chronic (7) History of CVA (cerebrovascular accident) ICD Code: Z86.73 - Personal history of transient ischemic attack (TIA), and cerebral infarction without residual deficits (8) Atrial fibrillation ICD Code: I48.91 - Unspecified atrial fibrillation Status: Chronic (9) Parkinson's disease ICD Code: G20 - Parkinson's disease Status: Chronic (10) Hypertension ICD Code: I10 - Essential (primary) hypertension Status: Chronic Assessment and Plan 77-year-old female with PMH of CVA, dementia, HTN, Afib on Eliquis, Parkinson's presents to the emergency department for worsening confusion, AMS over the past week and gait disturbance for the past 2 days. Acute Encephalopathy/Confusion with hx of Dementia/Parkinson's: also reported Gait Abnormality. Symptoms new over the past week. Rule out CVA. Possible this is patient's new baseline dementia with progression of Parkinson's Head CT, MRI and MRA brain with no acute findings UCX with mixed mariah, probable contaminants EEG abnormal, possible seizure - started on loading dose of Dilantin followed by Dilantin 150mg BID per Neuro -Neurology following, cleared for d/c, f/u in 2 weeks. Goal BP less than 120/80 -continue to monitor on telemetry -Neuro checks -ST for cognitive evaluation - moderate cognitive deficit PATIENT WOULD BENEFIT FROM SUPERVISION (SUCH POSSIBLE MEMORY UNIT) BUT APPEARS APPROPRIATE FOR RETURN TO [facility]. -Check 2d Echo/pending -Continue patient's Carbidopa-Levodopa, hold Tylenol #3 and Xanax for now Afib: chronic, rate controlled. -Continue propranolol and anticoagulation with Eliquis -monitor on telemetry -2D ECHO pending Hypertension, not well controlled -Continue lisinopril 20 mg twice daily -Continue Norvasc 10 mg daily -begin Hydralazine 25mg po TID -Continue to monitor BP and adjust treatment accordingly Abnormal UA: urinalysis with small leuks. UCX with mixed mariah, probable contaminants -Discontinue IV Rocephin Hyperammonemia: possibly contributing to encephalopathy as above. Ammonia level 38 -Given lactulose 1 Hypokalemia: K 3.1, resolved status post repletion DVT Prophylaxis: scd/teds, continue eliquis Discharge Planning Discussed with case management safe discharge at current [facility] facility given cognitive impairment. CM to contact daughter/SNF facility to have commercial sales representative come and assess patients needs and confirm she is appropriate placement at their facility. Problem Qualifiers (1) Dementia: Qualified Codes: G30.0 - Alzheimer's disease with early onset; F02.81 - Dementia in other diseases classified elsewhere with behavioral disturbance (2) Hypertension: Qualified Codes: I10 - Essential (primary) hypertension Paty Quintero December 09, 2017 13:57
[2017-12-09] MEDS: hydrALAZINE HCL 25 MG TAB PO SCH ×2 (14:26→21:38)
--- NOTE | 2017-12-09 15:41 | ECHRPT ---
Indication: CVA/TIA CONCLUSIONS The left ventricular systolic function is low normal with an estimated ejection fraction in the rang e of 50- 55%. Wall thickness is normal. Normal left ventricular size. The left atrial size is mildly dilated. Structurally normal mitral valve. Trace mitral valve regurgitation. Mitral annular calcification is present. Doppler parameters are consistent with impaired left ventricular relaxtion (grade 1 diastolic dysfun ction). BP: 144 / 71 HR: 72 Rhythm: Sinus MEASUREMENTS (Male / Female) Normal Values Technical Quality:Good 2D ECHO LV Diastolic Diameter PLAX 4.2 cm 4.2 - 5.9 / 3.9 - 5.3 cm LV Systolic Diameter PLAX 3.1 cm IVS Diastolic Thickness 1.0 cm 0.6 - 1.0 / 0.6 - 0.9 cm LVPW Diastolic Thickness 1.0 cm 0.6 - 1.0 / 0.6 - 0.9 cm LV Relative Wall Thickness 0.5 LVOT Diameter 1.8 cm M-MODE Aortic Root Diameter MM 2.5 cm LA Systolic Diameter MM 4.0 cm LA Ao Ratio MM 1.6 AV Cusp Separation MM 1.8 cm DOPPLER AV Peak Velocity 111.0 cm/s AV Peak Gradient 4.9 mmHg LVOT Peak Velocity 93.3 cm/s LVOT Peak Gradient 3.5 mmHg AV Area Cont Eq pk 2.1 cm Mitral E Point Velocity 76.0 cm/s Mitral A Point Velocity 96.7 cm/s Mitral E to A Ratio 0.8 LV E' Lateral Velocity 5.5 cm/s Mitral E to LV E' Lateral Ratio 13.9 LV E' Septal Velocity 6.2 cm/s Mitral E to LV E' Septal Ratio 12.2 TR Peak Velocity 267.0 cm/s TR Peak Gradient 28.5 mmHg Right Atrial Pressure 10.0 mmHg Pulmonary Artery Systolic Pressu 38.5 mmHg Right Ventricular Systolic Press 38.5 mmHg PV Peak Velocity 67.9 cm/s PV Peak Gradient 1.8 mmHg FINDINGS LEFT VENTRICLE The left ventricular systolic function is low normal with an estimated ejection fraction in the rang e of 50- 55%. Wall thickness is normal. Normal left ventricular size. Doppler parameters are consistent with impaired left ventricular relaxtion (grade 1 diastolic dysfun ction). RIGHT VENTRICLE Normal right ventricular size and systolic function. LEFT ATRIUM The left atrial size is mildly dilated. RIGHT ATRIUM The right atrial size is normal. ATRIAL SEPTUM Normal atrial septal thickness without atrial level shunting by limited color doppler interrogation. AORTA The aortic root and proximal ascending aorta are normal in size on limited imaging. MITRAL VALVE Structurally normal mitral valve. Trace mitral valve regurgitation. Mitral annular calcification is present. AORTIC VALVE Trileaflet aortic valve. No aortic valve stenosis or regurgitation. TRICUSPID VALVE There is mild to moderate tricuspid valve regurgitation. The estimated pulmonary arterial pressure is 38.5 mmHg. PULMONARY VALVE No pulmonary valve regurgitation or stenosis. VESSELS The inferior vena cava is normal in size. PERICARDIUM No pericardial effusion. Daniel Islas MD, FACC (Electronically Signed) Final Date:09 Dec 2017 15:40
[2017-12-09] MEDS: ACETAMINOPHEN 325 MG TAB PO PRN (18:53)
[2017-12-09] MEDS: APIXABAN 5 MG TABLET PO SCH (21:37)
[2017-12-09] MEDS: MELATONIN 5 MG TAB PO SCH (21:37)
[2017-12-09] MEDS: DIVALPROEX DR 500 MG TABEC PO SCH (21:38)
[2017-12-10] VITALS (9 sets, daily range): BP systolic 142–180; BP diastolic 59–86; PULSE 68–74; RESP 16–21; TEMP 97.9–98.5; O2SAT 91–96
[2017-12-10] MEDS: hydrALAZINE HCL 25 MG TAB PO SCH ×2 (05:41→13:25)
[2017-12-10] MEDS: PROPRANOLOL HCL 20 MG TAB PO SCH ×2 (05:41→13:25)
[2017-12-10] MEDS: CARBIDOPA/LEVODOPA 25 MG/100 MG TAB PO SCH ×2 (05:41→13:26)
[2017-12-10] MEDS: ACETAMINOPHEN 325 MG TAB PO PRN (06:43)
[2017-12-10] MEDS: INSULIN ASPART SUPPLEMENTAL SCALE SQ SCH ×2 (08:56→13:26)
[2017-12-10] MEDS: SODIUM CHLORIDE 0.9% FLUSH 10 ML FLUSH IV FLUSH SCH (09:00)
[2017-12-10] MEDS: PHENYTOIN 50 MG CHEWABLE TAB PO SCH (10:13)
[2017-12-10] MEDS: PHENYTOIN SODIUM 100 MG CAP PO SCH (10:13)
[2017-12-10] MEDS: DOCUSATE SODIUM 50 MG/SENNA 8.6 MG TAB PO SCH (10:14)
[2017-12-10] MEDS: GABAPENTIN 300 MG CAP PO SCH ×2 (10:14→12:09)
[2017-12-10] MEDS: APIXABAN 5 MG TABLET PO SCH (10:14)
[2017-12-10] MEDS: LISINOPRIL 20 MG TAB PO SCH (10:14)
[2017-12-10] MEDS: MAGNESIUM OXIDE 400 MG TAB PO SCH (10:15)
[2017-12-10] MEDS: QUEtiapine FUMARATE 25 MG TAB PO SCH (10:15)
[2017-12-10] MEDS: CHOLECALCIFEROL (VIT D3) 1000 UNIT TAB PO SCH (10:15)
--- NOTE | 2017-12-10 10:15 | HHI.PR ---
Subjective Remarks Follow-up on patient with altered mental status, increased confusion with history of dementia. Patient seen and examined. Patient complaining of severe headache this morning. No relief with Tylenol. She denies any vision changes, weakness, numbness/tingling or dizziness. No nausea or vomiting. No fever chills. No chest pain or shortness of breath. Discussed with nursing staff, Americo PEACE. Patient known to have chronic headaches. Objective Vitals Vital Signs Date Time Temp Pulse Resp B/P (MAP) Pulse Ox O2 Delivery O2 Flow Rate FiO2 12/10/17 10:02 98.5 70 20 166/72 (103) 91 12/10/17 08:32 72 12/10/17 04:26 97.9 69 16 142/67 (92) 96 12/10/17 03:43 68 12/10/17 00:40 98.0 73 16 180/86 (117) 93 12/10/17 00:15 72 12/09/17 21:01 98.9 73 16 154/76 (102) 95 12/09/17 19:53 14 12/09/17 16:00 98.5 73 16 148/67 (94) 95 12/09/17 16:00 98.6 74 18 138/63 (88) 94 12/09/17 11:35 98.0 72 18 144/71 (95) 96 I/O 12/09/17 12/09/17 12/09/17 12/10/17 12/10/17 12/10/17 07:00 15:00 23:00 07:00 15:00 23:00 # Voids 2 # Bowel Movements 1 Result Diagram: 12/08/17 0511 12/08/17 0511 Imaging Last Impressions Thoracic Spine X-Ray 12/08/17 0000 Signed Impressions: CONCLUSION: 1. Primary degenerative changes throughout the thoracic spine. 2. Scoliosis with curvature of the thoracic spine to the right. 3. No acute bony fracture. Head CT 12/08/17 0000 Signed Impressions: CONCLUSION: 1. Stable and unremarkable CT scan of the brain for patient's age. 2. Chronic sinus disease involving the right maxillary, ethmoid and frontal si nuses. Head Magnetic Resonance Angiography 12/07/17 0000 Signed Impressions: Service Date/Time: Thursday, December 07, 2017 12:12 - CONCLUSION: Normal examination. Pablo Bansal MD Brain MRI 12/07/17 0000 Signed Impressions: Service Date/Time: Thursday, December 07, 2017 12:12 - CONCLUSION: No acute intracranial findings. Pablo Bansal MD Objective Remarks GENERAL: Well-nourished, well-developed elderly female patient in [facility]. Pleasantly confused. Awake and alert. Oriented x 1-2. SKIN: Warm and dry. No generalized rash. HEENT: Normocephalic. Atraumatic. Pupils equal and round. No nasal drainage or discharge. Airway patent. Mucous membranes pink and moist. +well approximated 3cm laceration over left supraorbital area, sutures intact, appears to be healing well with no evidence of infection. NECK: Supple. CARDIOVASCULAR: Regular rate and rhythm. No murmur appreciated. RESPIRATORY: Nonlabored. Clear to auscultation. Breath sounds equal bilaterally. GASTROINTESTINAL: Abdomen soft, non-tender, nondistended. Normoactive bowel sounds x4. MUSCULOSKELETAL: No obvious deformities. Extremities without clubbing, cyanosis , or edema. NEUROLOGICAL: Awake and alert, oriented to self and hospital only. No obvious cranial nerve deficits. Motor grossly within normal limits. Moving all extremities spontaneously. Normal speech. PSYCHIATRIC: Appropriate mood and affect; insight and judgment limited. Procedures LACERATION LOCATION: forehead laceration LENGTH: 3 cm NUMBER OF STITCHES/ANGELICA: 12 sutures REPAIR: The area of the laceration was prepped with Betadine and sterilely draped. The laceration was infiltrated with 1% Xylocaine. The wound was copiously irrigated and explored without evidence of foreign body, tendon injury or neurovascular injury. The wound was closed using 5-0 Prolene. This was a 1 layer repair. A sterile dressing was applied. The patient was advised to keep the dressing clean and dry. Patient tolerated the procedure well. A/P Problem List: (1) Encephalopathy acute ICD Code: G93.40 - Encephalopathy, unspecified (2) Forehead laceration ICD Code: S01.81XA - Laceration without foreign body of other part of head, initial encounter (3) Neurological abnormality ICD Code: R29.818 - Other symptoms and signs involving the nervous system Status: Acute (4) Abnormal EEG ICD Code: R94.01 - Abnormal electroencephalogram [EEG] Status: Acute (5) Dementia ICD Code: F03.90 - Unspecified dementia without behavioral disturbance Status: Chronic (6) Chronic headaches ICD Code: R51 - Headache Status: Chronic (7) History of CVA (cerebrovascular accident) ICD Code: Z86.73 - Personal history of transient ischemic attack (TIA), and cerebral infarction without residual deficits (8) Atrial fibrillation ICD Code: I48.91 - Unspecified atrial fibrillation Status: Chronic (9) Parkinson's disease ICD Code: G20 - Parkinson's disease Status: Chronic (10) Hypertension ICD Code: I10 - Essential (primary) hypertension Status: Chronic Assessment and Plan 77-year-old female with PMH of CVA, dementia, HTN, Afib on Eliquis, Parkinson's presents to the emergency department for worsening confusion, AMS over the past week and gait disturbance for the past 2 days. Acute Encephalopathy/Confusion with hx of Dementia/Parkinson's: also reported Gait Abnormality. Symptoms new over the past week. Rule out CVA. Possible this is patient's new baseline dementia with progression of Parkinson's Head CT, MRI and MRA brain with no acute findings UCX with mixed mariah, probable contaminants EEG abnormal, possible seizure - started on loading dose of Dilantin followed by Dilantin 150mg BID per Neuro -Neurology following, cleared for d/c, f/u in 2 weeks. Goal BP less than 120/80 -continue to monitor on telemetry -Neuro checks -ST for cognitive evaluation - moderate cognitive deficit PATIENT WOULD BENEFIT FROM SUPERVISION (SUCH POSSIBLE MEMORY [facility]IT) BUT APPEARS APPROPRIATE FOR RETURN TO [facility]. -Check 2d Echo/pending -Continue patient's Carbidopa-Levodopa, hold Tylenol #3 and Xanax for now Cephalgia Patient with hx of chronic headaches on multiple medications Concern for possible bleed 2/2 recent fall with head lac and resumption of Eliquis yesterday -Obtain CT head to r/o bleed -trial of Fioricet Afib: chronic, rate controlled. -Continue propranolol and anticoagulation with Eliquis -monitor on telemetry -2D ECHO EF 50-55%, grade I diastolic dysfunction Hypertension -Continue lisinopril 20 mg twice daily -Continue Norvasc 10 mg daily -continue Hydralazine 25mg po TID -Continue to monitor BP and adjust treatment accordingly Hyperammonemia: possibly contributing to encephalopathy as above. Ammonia level 38 -Given lactulose 1 Hypokalemia: K 3.1, resolved status post repletion DVT Prophylaxis: scd/teds, continue eliquis Discharge Planning Likely discharge later today pending CT results Problem Qualifiers (1) Dementia: Qualified Codes: G30.0 - Alzheimer's disease with early onset; F02.81 - Dementia in other diseases classified elsewhere with behavioral disturbance (2) Hypertension: Qualified Codes: I10 - Essential (primary) hypertension Paty Quintero December 10, 2017 10:15
[2017-12-10] MEDS: COLESTIPOL HCL 5 GM PACKET PO SCH (10:16)
[2017-12-10] MEDS ORDERED: ACETAMIN 325 MG/BUTALBITAL 50 MG/CAFFEINE 40 MG TAB PO ONE (11:00)
--- NOTE | 2017-12-10 11:15 | RADRPT ---
EXAM DATE: 12/10/2017 11:11 AM EDT AGE/SEX: 77 years / Female INDICATIONS: Intracerebral hemorrhage. Headache. Fall with head laceration. CLINICAL DATA: This is the patient's initial encounter. Patient reports that signs and symptoms have been present for 1 day and indicates a pain score of 0/10. MEDICAL/SURGICAL HISTORY: Stroke. Hypertension. Hysterectomy. RADIATION DOSE: 38.18 CTDI (mGy) [place] [facility] [place]. . TECHNIQUE: CT of the head without contrast. Using automated exposure control and adjustment of the mA and/or kV according to patient size, radiation dose was kept as low as reasonably achievable to ob tain optimal diagnostic quality images. FINDINGS: Cerebrum: Moderate diffuse cerebral atrophy. The ventricles are normal for degree of atrophy. No isadora dence of midline shift, mass lesion, hemorrhage or acute infarction. No extraaxial fluid collections are seen. Posterior Fossa: The cerebellum and brainstem are intact. The 4th ventricle is midline. The cerebe llopontine angle is unremarkable. Extracranial: The visualized portion of the orbits is intact. Chronic appearing opacification of the right frontal sinuses, right ethmoid air cells and maxillary sinus. Skull: The calvaria is intact. No evidence of skull fracture. CONCLUSION: 1. No acute intracranial abnormality. 2. Redemonstration of chronic paranasal sinus mucosal disease, as above. Electronically signed by: Raul Rai MD 12/10/2017 11:14 AM EDT
[2017-12-10] MEDS ORDERED: WHEEMIS3 (14:51)
[2017-12-10] MEDS ORDERED: HYDR-3799 PO (15:18)
== END 2017-12-10 17:54 ==
LOC: NEPC 12:16 → NEDA 14:33 → NEPGCP 16:15
PROVIDERS: ADMIT Internal Medicine; ATTEND Internal Medicine
DX: G93.40 Encephalopathy, unspecified (principal); S01.81XA Laceration without foreign body of other part of head, initial encounter; R29.818 Other symptoms and signs involving the nervous system; I10 Essential (primary) hypertension; I48.2 Chronic atrial fibrillation; F02.81 Dementia in other diseases classified elsewhere, unspecified severity, with behavioral disturbance; G20 Parkinson's disease; G30.9 Alzheimer's disease, unspecified; E87.6 Hypokalemia; E78.00 Pure hypercholesterolemia, unspecified; I25.10 Atherosclerotic heart disease of native coronary artery without angina pectoris; E72.20 Disorder of urea cycle metabolism, unspecified; H54.61 Unqualified visual loss, right eye, normal vision left eye; N39.0 Urinary tract infection, site not specified; M41.9 Scoliosis, unspecified; W18.30XA Fall on same level, unspecified, initial encounter; Z79.01 Long term (current) use of anticoagulants; Z79.899 Other long term (current) drug therapy; Z80.41 Family history of malignant neoplasm of ovary; Z90.710 Acquired absence of both cervix and uterus; Z86.73 Personal history of transient ischemic attack (TIA), and cerebral infarction without residual deficits
CPT/HCPCS: 70450; 70544; 70551; 72072; 80048; 80053; 80061; 80164; 80185; 81001; 82140; 82550; 82607; 82948; 83036; 83735; 84439; 84443; 84484; 85025; 85610; 85730; 87086; 92610; 93005; 93306; 95819; 96125; 96361; 96365; 96367; 96372; 97110; 97116; 97162; 97166; 97530; 99285; G0378; G8987; G8988; G8989; G8996; G8997; G8998; G9168; G9169; G9170; J0696; J1165; J1815; J7030

== ENCOUNTER 2018-02-10 21:30 | Inpatient (IN) ==
--- NOTE | 2018-02-11 00:49 | ED ---
HPI General Chief complaint: Psychiatric Symptoms Stated complaint: Psych Eval Vol Time Seen by Provider: 02/11/18 00:45 History of Present Illness HPI narrative: This is a 77-year-old female with history of depression and dementia who presents with her daughter for psychiatric evaluation. The patient is a resident of an [facility]. She has been having worsening thoughts of depression and suicidal ideation over the past few weeks. Specifically today she had thoughts of driving in her retention pond or jumping off of a balcony. The daughter reports that in November her psychiatric nurse practitioner switched her Cymbalta to mirtazapine and this was increased from 15 mg daily to 30 mg daily last week. She denies any drug or alcohol use, homicidal ideation, this time. Related Data Home Medications Medication Instructions Recorded Confirmed amlodipine 5 mg PO DAILY 02/11/18 02/11/18 divalproex [Depakote Sprinkles] 125 mg PO TID 02/11/18 02/11/18 donepezil 15 mg PO DAILY 02/11/18 02/11/18 escitalopram oxalate 10 mg PO DAILY 02/11/18 02/11/18 ferrous sulfate 325 mg PO TID 02/11/18 02/11/18 lisinopril 02/11/18 memantine 10 mg PO BID 02/11/18 02/11/18 timolol maleate [Timoptic] 1 drp OPHTHALMIC (EYE) DAILY 02/11/18 02/11/18 Allergies Allergy/AdvReac Type Severity Reaction Status Date / Time iodine Allergy Severe Anaphylaxis Verified 02/11/18 01:33 potassium iodide Allergy Severe Anaphylaxis Verified 02/11/18 01:33 povidone-iodine Allergy Severe Anaphylaxis Verified 02/11/18 01:33 sodium iodide Allergy Severe Anaphylaxis Verified 02/11/18 01:33 sodium iodide Allergy Severe Anaphylaxis Verified 02/11/18 01:33 Sulfa (Sulfonamide Allergy Severe Anaphylaxis Verified 02/11/18 01:33 Antibiotics) Review of Systems Except as stated in HPI: all other systems reviewed are negative [facility] Medical History Medical History Anxiety (Acute) Atrial fibrillation (Acute) Chronic pain (Acute) Depression (Acute) Fusion of spine (Acute) HTN (hypertension) (Acute) Hypothyroid (Acute) Insomnia (Acute) Migraine (Acute) Mild cognitive impairment (Acute) Parkinson disease (Acute) Restless leg syndrome (Acute) TIA (transient ischemic attack) (Acute) UTI (urinary tract infection) (Acute) Social History Social History Substance History: Past History Second Hand Smoke Exposure: No Smoking Status: Never smoker Tobacco Type: Cigarettes How Often Do You Have a Drink Containing Alcohol: Never Recent Travel in [facility] within the Last 8 Weeks: No Recent Out of Country Travel within the Last 8 Weeks: No Substance Abuse Detail Opiates: Substance Use Status: Active Route Used Substance Abuse: By Mouth Reason for Use: Calm Down Immunization History Tetanus Immunization: Unsure Hx Influenza Vaccine This Season: Unable to Assess Exam Narrative Exam Narrative: GENERAL: Well-developed well-nourished female no acute distress SKIN: Warm and dry. HEAD: Atraumatic. Normocephalic. EYES: Pupils equal and round. No scleral icterus. No injection or drainage. ENT: No nasal bleeding or discharge. Mucous membranes pink and moist. NECK: Trachea midline. No JVD. CARDIOVASCULAR: Regular rate and rhythm. No murmur appreciated. RESPIRATORY: No accessory muscle use. Clear to auscultation. Breath sounds equal bilaterally. GASTROINTESTINAL: Abdomen soft, non-tender, nondistended. Hepatic and splenic margins not palpable. MUSCULOSKELETAL: No obvious deformities. No clubbing. No cyanosis. No edema. NEUROLOGICAL: Awake and alert. No obvious cranial nerve deficits. Motor grossly within normal limits. Normal speech. PSYCHIATRIC: Depressed mood. Insight and judgment normal. Course Initial Documented Vital Signs Temperature 98 F 02/10/18 21:38 Pulse Rate 76 02/10/18 21:38 Respiratory Rate 18 02/10/18 21:38 Blood Pressure 135/69 02/10/18 21:38 Pulse Oximetry 95 02/10/18 21:38 Last Documented Vital Signs Temperature 98 F 02/10/18 21:38 Pulse Rate 72 02/11/18 00:27 Respiratory Rate 18 02/11/18 00:27 Blood Pressure 143/76 H 02/11/18 00:27 Pulse Oximetry 95 02/10/18 21:38 Medical Decision Making MDM Narrative Medical decision making narrative: Mental health screening discussed with the patient. Psychiatric screen ordered. Lab work has been reviewed. The patient is medically clear for psychiatric disposition. Differential Diagnosis Differential Diagnosis: Major depressive disorder, acute psychosis, adjustment reaction, substance-induced mood disorder, depressive disorder not otherwise specified Lab Data Result diagrams: 02/11/18 01:00 07/26/18 01:00 Lab Results 02/11/18 02/11/18 02/11/18 Range/Units 01:00 01:00 01:00 WBC 7.6 (4.0-11.0) th/mm3 RBC 4.34 (4.00-5.30) mil/mm3 Hgb 13.2 (11.6-15.3) gm/dL Hct 39.0 (35.0-46.0) % MCV 90.0 (80.0-100.0) fL MCH 30.4 (27.0-34.0) pg MCHC 33.8 (32.0-36.0) % RDW 14.8 (11.6-17.2) % Plt Count 224 (150-450) th/mm3 MPV 9.5 (7.0-11.0) fL Neut % (Auto) 42.1 (16.0-70.0) % Lymph % (Auto) 47.9 H (9.0-44.0) % [place] % (Auto) 6.2 (0.0-8.0) % Eos % (Auto) 3.1 (0.0-4.0) % Baso % (Auto) 0.7 (0.0-2.0) % Neut # (Auto) 3.2 (1.8-7.7) th/mm3 Lymph # (Auto) 3.6 (1.0-4.8) th/mm3 [place] # (Auto) 0.5 (0.0-0.9) th/mm3 Eos # (Auto) 0.2 (0.0-0.4) th/mm3 Baso # (Auto) 0.1 (0.0-0.2) th/mm3 WBC Differential . Differential Comment Auto diff final Sodium 140 (136-145) meq/L Potassium 4.1 (3.5-5.1) meq/L Chloride 105 (98-107) meq/L Carbon Dioxide 26.5 (21.0-32.0) meq/L Anion Gap 9 (5-15) meq/L BUN 29 H (7-18) mg/dL Creatinine 0.96 (0.50-1.00) mg/dL Estimated GFR 57 L (>89) mL/min Random Glucose 93 (74-106) mg/dL Calcium 9.1 (8.5-10.1) mg/dL Total Bilirubin 0.3 (0.2-1.0) mg/dL AST 30 (15-37) U/L ALT 16 (10-53) U/L Alkaline Phosphatase 91 (45-117) U/L Total Protein 8.2 (6.4-8.2) g/dL Albumin 3.8 (3.4-5.0) g/dL TSH 1.960 (0.358-3.740) uIU/mL Urine Color (Yellw/Straw) Urine Clarity (Clear) Urine pH (5.0-8.5) Ur Specific Duff (1.002-1.035) Urine Protein (Neg-Trace) mg/dL Urine Glucose (UA) (Negative) mg/dL Urine Ketones (Negative) mg/dL Urine Occult Blood (Negative) Urine Nitrate (Negative) Urine Bilirubin (Negative) Urine Urobilinogen (Less than 2) mg/dL Ur Leukocyte Esterase (Negative) Urine RBC (0-3) /hpf Ur Squamous Epith Cells (0-5) /hpf Urine Mucus (Occasional) /lpf Micro UA Comment Urine Culture Comments Urine Opiates Screen Neg (Neg) Ur Barbiturates Screen Neg (Neg) Ur Amphetamines Screen Neg (Neg) U Benzodiazepines Scrn Neg (Neg) Urine Cocaine Screen Neg (Neg) U Cannabinoids Screen Neg (Neg) Serum Alcohol Less than 3 (0-5) mg/dL 02/11/18 Range/Units 01:00 WBC (4.0-11.0) th/mm3 RBC (4.00-5.30) mil/mm3 Hgb (11.6-15.3) gm/dL Hct (35.0-46.0) % MCV (80.0-100.0) fL MCH (27.0-34.0) pg MCHC (32.0-36.0) % RDW (11.6-17.2) % Plt Count (150-450) th/mm3 MPV (7.0-11.0) fL Neut % (Auto) (16.0-70.0) % Lymph % (Auto) (9.0-44.0) % [place] % (Auto) (0.0-8.0) % Eos % (Auto) (0.0-4.0) % Baso % (Auto) (0.0-2.0) % Neut # (Auto) (1.8-7.7) th/mm3 Lymph # (Auto) (1.0-4.8) th/mm3 [place] # (Auto) (0.0-0.9) th/mm3 Eos # (Auto) (0.0-0.4) th/mm3 Baso # (Auto) (0.0-0.2) th/mm3 WBC Differential Differential Comment Sodium (136-145) meq/L Potassium (3.5-5.1) meq/L Chloride (98-107) meq/L Carbon Dioxide (21.0-32.0) meq/L Anion Gap (5-15) meq/L BUN (7-18) mg/dL Creatinine (0.50-1.00) mg/dL Estimated GFR (>89) mL/min Random Glucose (74-106) mg/dL Calcium (8.5-10.1) mg/dL Total Bilirubin (0.2-1.0) mg/dL AST (15-37) U/L ALT (10-53) U/L Alkaline Phosphatase (45-117) U/L Total Protein (6.4-8.2) g/dL Albumin (3.4-5.0) g/dL TSH (0.358-3.740) uIU/mL Urine Color Straw (Yellw/Straw) Urine Clarity Clear (Clear) Urine pH 7.0 (5.0-8.5) Ur Specific Duff 1.005 (1.002-1.035) Urine Protein Negative (Neg-Trace) mg/dL Urine Glucose (UA) Negative (Negative) mg/dL Urine Ketones Negative (Negative) mg/dL Urine Occult Blood Small H (Negative) Urine Nitrate Negative (Negative) Urine Bilirubin Negative (Negative) Urine Urobilinogen Less than 2 (Less than 2) mg/dL Ur Leukocyte Esterase Negative (Negative) Urine RBC Less than 1 (0-3) /hpf Ur Squamous Epith Cells <1 (0-5) /hpf Urine Mucus Few H (Occasional) /lpf Micro UA Comment Culture not ind Urine Culture Comments Culture not ind Urine Opiates Screen (Neg) Ur Barbiturates Screen (Neg) Ur Amphetamines Screen (Neg) U Benzodiazepines Scrn (Neg) Urine Cocaine Screen (Neg) U Cannabinoids Screen (Neg) Serum Alcohol (0-5) mg/dL Discharge Plan Discharge Disposition Patient Disposition: 30 Still Patient Discharge Condition Condition: Stable Discharge Details Diagnosis: Encounter for medical clearance for patient hold Physicians Team ED Provider: Stanley Adams ED Midlevel Provider: Eric Massey Primary Care Provider: Mery Trujillo Rxs /Orders / Referrals /Forms Prescriptions: No Action donepezil 10 mg Tablet 15 mg PO DAILY RF: 0 amlodipine 5 mg Tablet 5 mg PO DAILY RF: 0 divalproex [Depakote Sprinkles] 125 mg Capsule, Delayed Rel Sprinkle 125 mg PO TID RF: 0 escitalopram oxalate 5 mg Tablet 10 mg PO DAILY RF: 0 ferrous sulfate 325 mg (65 mg iron) Tablet 325 mg PO TID RF: 0 lisinopril 10 mg Tablet RF: 0 timolol maleate [Timoptic] 0.5 % Drops 1 drp OPHTHALMIC (EYE) DAILY RF: 0 memantine 10 mg Tablet 10 mg PO BID RF: 0 Status ED Status: Medically Cleared
[2018-02-11 01:21] LABS: Baso # (Auto) 0.1 th/mm3 (0.0-0.2); Baso % (Auto) 0.7 % (0.0-2.0); Eos # (Auto) 0.2 th/mm3 (0.0-0.4); Eos % (Auto) 3.1 % (0.0-4.0); Hemoglobin 13.2 gm/dL (11.6-15.3); Lymph # (Auto) 3.6 th/mm3 (1.0-4.8); Lymph % (Auto) 47.9 % (9.0-44.0); Mean Corpuscular HGB Conc 33.8 % (32.0-36.0); Mean Corpuscular Hemoglobin 30.4 pg (27.0-34.0); Mean Platelet Volume 9.5 fL (7.0-11.0); Mono # (Auto) 0.5 th/mm3 (0.0-0.9); Mono % (Auto) 6.2 % (0.0-8.0); Neut # (Auto) 3.2 th/mm3 (1.8-7.7); Neut % (Auto) 42.1 % (16.0-70.0); Platelet Count 224 th/mm3 (150-450); Red Blood Count 4.34 mil/mm3 (4.00-5.30); Red Cell Distribution Width 14.8 % (11.6-17.2); White Blood Count 7.6 th/mm3 (4.0-11.0)
[2018-02-11 01:55] LABS: Amphetamine Screen,Urine Neg (Neg); Barbiturate Screen,Urine Neg (Neg); Cannabinoid Screen,Urine Neg (Neg); Cocaine Screen,Urine Neg (Neg)
[2018-02-11 01:57] LABS: Opiate Screen,Urine Neg (Neg)
[2018-02-11 02:05] LABS: Alanine Aminotransferase 16 U/L (10-53); Albumin 3.8 g/dL (3.4-5.0); Anion Gap 9 meq/L (5-15); Aspartate Aminotransferase 30 U/L (15-37); Blood Urea Nitrogen 29 mg/dL (7-18); Calcium 9.1 mg/dL (8.5-10.1); Carbon Dioxide 26.5 meq/L (21.0-32.0); Chloride 105 meq/L (98-107); Glomerular Filtration Rate 57 mL/min (>89); Glucose,Random 93 mg/dL (74-106); Potassium 4.1 meq/L (3.5-5.1); Sodium 140 meq/L (136-145)
[2018-02-11 02:12] LABS: Alkaline Phosphatase 91 U/L (45-117); Total Protein 8.2 g/dL (6.4-8.2)
[2018-02-11 02:43] LABS: Bilirubin,Urine Negative (Negative); Clarity,Urine Clear (Clear); Color,Urine Straw (Yellw/Straw); Glucose,Urine (UA) Negative (Negative); Leukocyte Esterase,Urine Negative (Negative); Mucus,Urine Few /lpf (Occasional); Nitrite,Urine Negative (Negative); Specific Gravity,Urine 1.005 (1.002-1.035); Squamous Epithelial Cell,Urine <1 /hpf (0-5)
[2018-02-11] MEDS ORDERED: Aluminum/Magnesium/Simethacone Susp 30 ML UDC PO PRN (12:10)
--- NOTE | 2018-02-11 12:56 | ED ---
HPI - Psych - General Source: patient, family Mode of arrival: ambulatory (with walker) Limitations: no limitations (some dementia) - History of Present Illness MD complaint: suicidal ideation Onset (ago): week(s) Duration: intermittent, getting worse History of same: Yes Relieving factors: medication Exacerbating factors: other (lack of medication) Context: not taking psychiatric medications Associated psychiatric symptoms: depression, suicidal ideation Associated symptoms: denies other symptoms - General Chief Complaint: Psychiatric Symptoms Stated Complaint: Psych Eval Vol Time Seen by Provider: 02/11/18 10:32 - History of Present Illness HPI Narrative: This is a 77 year-old female who presents voluntarily to this facility for increased suicidal ideation in the context of a medication change. She is not previously known to the psychiatric department at this facility. Reviewed electronic medical record, labs, and discussed case with staff. Patient was evaluated in her room in the main ED. She is found awake, alert, and oriented to self and place. Her speech is clear, logical, and organized. She endorses intermittent, worsening thoughts of suicide stating that she has alternately considered jumping off of a balcony and into a retaining pond. She denies homicidal ideation as well as auditory and visual hallucinations. I can elicit no delusional material. Her mood is good and her affect is euthymic. Patient reports that there was a recent change of her medication where they took her off of alprazolam 0.5 mg at bedtime and reports that it was at her daughter's request. I asked to speak with her daughter, she granted permission. I called and spoke with Kj who is her daughter and POA. She advises that her mother has had previous abuse issues with medications, even going to drug stores on outings and buying medications and taking them. She relates that a few months back her mother was developing AMS, aggression, and general weakness which was leading to falls. Her aggression had worsened to the point that she was being threatened with removal from her SNF. After a workup at the hospital, it was decided to stop the alprazolam and the opiates she took for pain medication as it was thought they were increasing her confusion, aggression, and balance issues. The patient relates this as when she had increased SI and decreased sleep, however her daughter states that even when she was receiving the alprazolam at bedtime she still c/o insomnia. The patient's medication was then changed by a bank cashier from Cymbalta to mirtazapine, which I do not find in her medication reconciliation. Her daughter advises that at this point, if a benzodiazepine helps her to sleep at night and she does not have frequent falls or aggression then she is all for her receiving it. There is a history of dementia and the patient is being medicated for it. The patient takes depakote, but I believe it may be for her headaches. (Dorita Madsen) - Related Data Home Medications Medication Instructions Recorded Confirmed amlodipine 5 mg PO DAILY 02/11/18 02/11/18 divalproex [Depakote Sprinkles] 125 mg PO TID 02/11/18 02/11/18 donepezil 15 mg PO DAILY 02/11/18 02/11/18 escitalopram oxalate 10 mg PO DAILY 02/11/18 02/11/18 ferrous sulfate 325 mg PO TID 02/11/18 02/11/18 lisinopril 02/11/18 memantine 10 mg PO BID 02/11/18 02/11/18 timolol maleate [Timoptic] 1 drp OPHTHALMIC (EYE) DAILY 02/11/18 02/11/18 Allergies Allergy/AdvReac Type Severity Reaction Status Date / Time iodine Allergy Severe Anaphylaxis Verified 02/11/18 01:33 potassium iodide Allergy Severe Anaphylaxis Verified 02/11/18 01:33 povidone-iodine Allergy Severe Anaphylaxis Verified 02/11/18 01:33 sodium iodide Allergy Severe Anaphylaxis Verified 02/11/18 01:33 sodium iodide Allergy Severe Anaphylaxis Verified 02/11/18 01:33 Sulfa (Sulfonamide Allergy Severe Anaphylaxis Verified 02/11/18 01:33 Antibiotics) Review of Systems All other systems reviewed negative except as stated in HPI PMFSH - History History Provided By: Patient - Medical History Medical History: Medical History (Last Reviewed 02/11/18 @ 12:43 by DUARTE Pedersen) Anxiety Atrial fibrillation Chronic pain Depression Fusion of spine HTN (hypertension) Hypothyroid Insomnia Migraine Mild cognitive impairment Parkinson disease Restless leg syndrome TIA (transient ischemic attack) UTI (urinary tract infection) - Tobacco History Second Hand Smoke Exposure: No Smoking Status: Never smoker Tobacco Type: Cigarettes - Alcohol History How Often Do You Have a Drink Containing Alcohol: Never - Substance Use History Substance History: Past History - Substance Use Type Opiates Status: Active Route Used: By Mouth Reason for Use: Calm Down - Travel History Recent Travel in the USA Within the Last 8 Weeks: No Recent Travel Out of the Country Within the Last 8 Weeks: No - Immunization History Tetanus Immunization: Unsure Hx Influenza Vaccine This Season: Unable to Assess Psychiatric History - Psychiatric History Psychiatric Treatment History: History of Psychiatric Treatment History of Inpatient Treatment: No Firearms in Home: No - Psychiatric History Patient has a history of depression. She denies previous inpatient admissions for mental illness. (Dorita Madsen) - Legal History Denies (Dorita Madsen) - Family Psychiatric History Reports that her grandmother committed suicide when the patient was 16 years of age. (Dorita Madsen) Mental Status Examination Appearance: Appropriate, Well dressed/well groomed Consciousness: Alert Orientation: Person, Place Motor Activity: Other (with walker) Speech: Unremarkable Language: Adequate Fund of Knowledge: Inadequate Attention and Concentration: Adequate Memory: Impaired Mood: Appropriate, Good Affect: Appropriate, Euthymic Thought Process & Associations: Goal directed (she mentions the alprazolam to all staff) Thought Content: Appropriate Hallucination Type: None Delusion Type: None Suicidal Ideation: Yes Suicidal Plan: Yes Suicidal Intention: No Homicidal Ideation: No Homicidal Plan: No Homicidal Intention: No Insight: Poor Judgment: Impulsive Initial Documented Vital Signs Temperature 98 F 02/10/18 21:38 Pulse Rate 76 02/10/18 21:38 Respiratory Rate 18 02/10/18 21:38 Blood Pressure 135/69 02/10/18 21:38 Pulse Oximetry 95 02/10/18 21:38 Last Documented Vital Signs Temperature 98 F 02/10/18 21:38 Pulse Rate 83 02/11/18 11:07 Respiratory Rate 16 02/11/18 11:07 Blood Pressure 133/68 02/11/18 11:07 Pulse Oximetry 95 02/11/18 11:07 MDM - Psych - Diagnosis (1) Depression Status: Acute - Lab Data Result diagrams: 02/11/18 01:00 02/11/18 01:00 - [facility] Narrative Medical decision making narrative: Given the family history, lack of patient history, and the fact that she has mentioned multiple feasible methods, I will admit this patient to a locked inpatient psychiatric unit for further evaluation and treatment as deemed necessary. Her daughter, whose number is listed in the demographics is her POA and will be making the medical decisions. Consent obtained via phone. (Dorita Madsen) - Lab Data Lab Results 02/11/18 02/11/18 02/11/18 Range/Units 01:00 01:00 01:00 WBC 7.6 (4.0-11.0) th/mm3 RBC 4.34 (4.00-5.30) mil/mm3 Hgb 13.2 (11.6-15.3) gm/dL Hct 39.0 (35.0-46.0) % MCV 90.0 (80.0-100.0) fL MCH 30.4 (27.0-34.0) pg MCHC 33.8 (32.0-36.0) % RDW 14.8 (11.6-17.2) % Plt Count 224 (150-450) th/mm3 MPV 9.5 (7.0-11.0) fL Neut % (Auto) 42.1 (16.0-70.0) % Lymph % (Auto) 47.9 H (9.0-44.0) % [place] % (Auto) 6.2 (0.0-8.0) % Eos % (Auto) 3.1 (0.0-4.0) % Baso % (Auto) 0.7 (0.0-2.0) % Neut # (Auto) 3.2 (1.8-7.7) th/mm3 Lymph # (Auto) 3.6 (1.0-4.8) th/mm3 [place] # (Auto) 0.5 (0.0-0.9) th/mm3 Eos # (Auto) 0.2 (0.0-0.4) th/mm3 Baso # (Auto) 0.1 (0.0-0.2) th/mm3 WBC Differential . Differential Comment Auto diff final Sodium 140 (136-145) meq/L Potassium 4.1 (3.5-5.1) meq/L Chloride 105 (98-107) meq/L Carbon Dioxide 26.5 (21.0-32.0) meq/L Anion Gap 9 (5-15) meq/L BUN 29 H (7-18) mg/dL Creatinine 0.96 (0.50-1.00) mg/dL Estimated GFR 57 L (>89) mL/min Random Glucose 93 (74-106) mg/dL Calcium 9.1 (8.5-10.1) mg/dL Total Bilirubin 0.3 (0.2-1.0) mg/dL AST 30 (15-37) U/L ALT 16 (10-53) U/L Alkaline Phosphatase 91 (45-117) U/L Total Protein 8.2 (6.4-8.2) g/dL Albumin 3.8 (3.4-5.0) g/dL TSH 1.960 (0.358-3.740) uIU/mL Urine Color (Yellw/Straw) Urine Clarity (Clear) Urine pH (5.0-8.5) Ur Specific [place] (1.002-1.035) Urine Protein (Neg-Trace) mg/dL Urine Glucose (UA) (Negative) mg/dL Urine Ketones (Negative) mg/dL Urine Occult Blood (Negative) Urine Nitrate (Negative) Urine Bilirubin (Negative) Urine Urobilinogen (Less than 2) mg/dL Ur Leukocyte Esterase (Negative) Urine RBC (0-3) /hpf Ur Squamous Epith Cells (0-5) /hpf Urine Mucus (Occasional) /lpf Micro UA Comment Urine Culture Comments Urine Opiates Screen Neg (Neg) Ur Barbiturates Screen Neg (Neg) Ur Amphetamines Screen Neg (Neg) U Benzodiazepines Scrn Neg (Neg) Urine Cocaine Screen Neg (Neg) U Cannabinoids Screen Neg (Neg) Serum Alcohol Less than 3 (0-5) mg/dL 02/11/18 Range/Units 01:00 WBC (4.0-11.0) th/mm3 RBC (4.00-5.30) mil/mm3 Hgb (11.6-15.3) gm/dL Hct (35.0-46.0) % MCV (80.0-100.0) fL MCH (27.0-34.0) pg MCHC (32.0-36.0) % RDW (11.6-17.2) % Plt Count (150-450) th/mm3 MPV (7.0-11.0) fL Neut % (Auto) (16.0-70.0) % Lymph % (Auto) (9.0-44.0) % [place] % (Auto) (0.0-8.0) % Eos % (Auto) (0.0-4.0) % Baso % (Auto) (0.0-2.0) % Neut # (Auto) (1.8-7.7) th/mm3 Lymph # (Auto) (1.0-4.8) th/mm3 [place] # (Auto) (0.0-0.9) th/mm3 Eos # (Auto) (0.0-0.4) th/mm3 Baso # (Auto) (0.0-0.2) th/mm3 WBC Differential Differential Comment Sodium (136-145) meq/L Potassium (3.5-5.1) meq/L Chloride (98-107) meq/L Carbon Dioxide (21.0-32.0) meq/L Anion Gap (5-15) meq/L BUN (7-18) mg/dL Creatinine (0.50-1.00) mg/dL Estimated GFR (>89) mL/min Random Glucose (74-106) mg/dL Calcium (8.5-10.1) mg/dL Total Bilirubin (0.2-1.0) mg/dL AST (15-37) U/L ALT (10-53) U/L Alkaline Phosphatase (45-117) U/L Total Protein (6.4-8.2) g/dL Albumin (3.4-5.0) g/dL TSH (0.358-3.740) uIU/mL Urine Color Straw (Yellw/Straw) Urine Clarity Clear (Clear) Urine pH 7.0 (5.0-8.5) Ur Specific [place] 1.005 (1.002-1.035) Urine Protein Negative (Neg-Trace) mg/dL Urine Glucose (UA) Negative (Negative) mg/dL Urine Ketones Negative (Negative) mg/dL Urine Occult Blood Small H (Negative) Urine Nitrate Negative (Negative) Urine Bilirubin Negative (Negative) Urine Urobilinogen Less than 2 (Less than 2) mg/dL Ur Leukocyte Esterase Negative (Negative) Urine RBC Less than 1 (0-3) /hpf Ur Squamous Epith Cells <1 (0-5) /hpf Urine Mucus Few H (Occasional) /lpf Micro UA Comment Culture not ind Urine Culture Comments Culture not ind Urine Opiates Screen (Neg) Ur Barbiturates Screen (Neg) Ur Amphetamines Screen (Neg) U Benzodiazepines Scrn (Neg) Urine Cocaine Screen (Neg) U Cannabinoids Screen (Neg) Serum Alcohol (0-5) mg/dL
[2018-02-11] MEDS: Divalproex 125 MG Sprinkles Capsule PO SCH ×2 (16:19→17:58)
[2018-02-11] MEDS: Ferrous Sulfate 325 MG Tablet PO SCH (16:19)
[2018-02-11] MEDS: Acetaminophen 325 MG Tablet PO PRN (17:59)
[2018-02-12] MEDS ORDERED: DONEPEZIL PO SCH (09:00)
[2018-02-12 09:25] LABS: Calcium 8.7 mg/dL (8.5-10.1); Carbon Dioxide 23.9 meq/L (21.0-32.0); Potassium 3.7 meq/L (3.5-5.1)
[2018-02-12 09:29] LABS: Chol/HDL Ratio 4.92 Ratio; HDL Cholesterol 62.9 mg/dL (40.0-60.0)
[2018-02-12] MEDS: amLODIPine 5 MG Tablet PO SCH (09:42)
[2018-02-12] MEDS: Ferrous Sulfate 325 MG Tablet PO SCH ×4 (09:43→21:47)
[2018-02-12] MEDS: Escitalopram 10 MG Tablet PO SCH (09:44)
[2018-02-12] MEDS: Divalproex 125 MG Sprinkles Capsule PO SCH ×3 (09:44→18:41)
[2018-02-12] MEDS: Timolol 0.5% Drops 5 ML Bottle EACH EYE SCH (09:45)
[2018-02-12] MEDS ORDERED: Aluminum/Magnesium/Simethacone Susp 30 ML UDC PO PRN (13:02)
--- NOTE | 2018-02-12 13:20 | P.HPPSY ---
Provisional Diagnosis Admission Date: February 11, 2018 12:28 [place] I.: Major depressive disorder recurrent severe without psychosis Competence Certification of Person's Competence To Provide Express and Informed Consent I have personally examined Cinthia Carter, a person being served at [facility] on, February 12, 2018 1311. Express and informed consent means consent voluntarily given in writing, by a competent person, after sufficient explanation and disclosure of the subject matter involved to enable the person to make a knowing and willful decision without any element of force, fraud, deceit, duress, or other form of constraint or coercion. This person is 18 years of age or older, is not now known to be incompetent to consent to treatment with a guardian advocate, and does not have a health care surrogate or proxy currently making medical treatment decisions. I have found this person to be one of the following: [xxxx] Competent to provide express and informed consent, as defined above, for voluntary admission to this facility and is competent to provide express and informed consent for treatment. He/she has the consistent capacity to make well reasoned, willful, and knowing decisions concerning his or her medical or mental health treatment. The person fully and consistently understands the purpose of the admission for examination/placement and is fully capable of personally exercising all rights assured [place] Incompetent to provide express and informed consent to voluntary admission, and this is incompetent to provide express and informed consent to treatment. The person must be transferred to involuntary status and a petition for a guardian advocate filed with the Circuit Court. [] Refusing to provide express and informed consent to voluntary admission but is competent to provide express and informed consent for treatment. The person must be discharged or transferred to involuntary status. Form shall be completed within 24 hours of a person's arrival at the receiving facility and filed in the clinical record of each person: 1. Admitted on a voluntary basis 2. Permitted to provide express and informed consent to his/her own treatment 3. Allowed to transfer from involuntary to voluntary status 4. Prior to permitting a person to consent to his or her own treatment after having been previously found incompetent to consent to treatment. History of Present Illness Capacity: Has capacity History of Present Illness: Patient is a 77-year-old white female comes here voluntarily from a local [facility] with a history of increased depression over the past few weeks. She describes both initial and mid insomnia with a.m. energy, decreased energy and decreased concentration and attention. States appetite is okay. But there is marked decrease in her ability to get enjoyment out of things she enjoyed prior. She denies voices or visions with this. She denies any self- medication. She does acknowledge increased suicidal ideation with intent of perhaps drowning herself or overdosing on pills. It appears she has a long history of depression that she has been on multiple psychotropic medications in the past, patient's daughter is her POA was shared with us that she may have misused and manipulated some psychotropic medication in the past. 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 At the present time patient does meet criteria for further inpatient psychiatric hospitalization to help stabilize her medication. We will place her on Seroquel 25 mg at at bedtime. Patient states her main concern and desire is to get a good night sleep 6 or 7 hours worth. She also does have some type of negative comment about every antidepressant that I spoke with her we will also have the hospitalist consult will us also have PT and OT consult will us - Inpatient Certification I certify that the inpatient services were ordered in accordance with Medicare regulations governing the order. This includes certification that hospital inpatient services are reasonable and necessary and in the case of services not specified as inpatient-only under 42 CFR 419.22(n), that they are appropriately provided as inpatient services in accordance to with the 2-midnight benchmark under 43 CFR 412.3(e) I certify that inpatient psychiatric hospital services are medically necessary. Evaluation and treatment and/or diagnostic testing are expected to improve the patient's condition. The patient needs on a daily basis, active treatment furnished directly by or requiring the supervision of inpatient psychiatric facility personnel. Estimated Total Length of Stay (Days): 7 Plans for Post Hospital Care: SNF Review of Systems All other systems reviewed negative except as stated in HPI PMFSH - History History Provided By: Patient - Medical History Medical History: Medical History (Last Reviewed 02/11/18 @ 12:43 by DUARTE Pedersen) Anxiety Atrial fibrillation Chronic pain Depression Fusion of spine HTN (hypertension) Hypothyroid Insomnia Migraine Mild cognitive impairment Parkinson disease Restless leg syndrome TIA (transient ischemic attack) UTI (urinary tract infection) - Tobacco History Second Hand Smoke Exposure: No Tobacco Use In Past 30 Days: No Smoking Status: Never smoker Tobacco Type: Cigarettes - Alcohol History How Often Do You Have a Drink Containing Alcohol: Never - Substance Use History Substance History: No History of Abuse - Substance Use Type Opiates Type: as per ED report daughter stated a history of medication abuse, patient den Status: Active Route Used: By Mouth Reason for Use: Calm Down - Travel History Recent Travel in the [place] Within the Last 8 Weeks: No Recent Travel Out of the Country Within the Last 8 Weeks: No - Immunization History Tetanus Immunization: Unsure Hx Influenza Vaccine This Season: Yes Quality Measures - Psychiatric History Psychological trauma history: Patient at a young age Violence risk to others in the last 6 months: Low Violence risk to self in the last 6 months: Patient is suicidal ideation with plan to drown herself - Substance Abuse History Drug or alcohol use in the past 12 months: Patient denies - Patient Strengths Patient's strengths (minimum of 2): Patient verbal cooperative has supportive family Medications and Allergies Active Medications: Active Medications Acetaminophen (Tylenol) 650 mg PO Q6H PRN PRN Reason: PAIN SCALE 1 TO 10 Last Admin: 02/11/18 17:59 Dose: 650 mg Al Hydrox/Mg Hydrox/Simethicone (Mag-Al Plus Susp Liq) 30 ml PO Q6H PRN PRN Reason: DYSPEPSIA Al Hydroxide/Mg Hydroxide (Milk Of Magnesia Liq) 30 ml PO Q12H PRN PRN Reason: Mild Constipation Amlodipine Besylate (Norvasc) 5 mg PO DAILY [facility] Last Admin: 02/12/18 09:42 Dose: 5 mg Diphenhydramine HCl (Benadryl) 50 mg PO HS PRN PRN Reason: INSOMNIA Divalproex Sodium (Depakote Sprinkles) 125 mg PO TID [facility] Last Admin: 02/12/18 09:44 Dose: 125 mg Donepezil HCl (Aricept) 15 mg PO DAILY [facility] Last Admin: 02/12/18 09:43 Dose: 15 mg Escitalopram Oxalate (Lexapro) 10 mg PO DAILY [facility] Last Admin: 02/12/18 09:44 Dose: 10 mg Ferrous Sulfate (Ferosul) 325 mg PO TID [facility] Last Admin: 02/12/18 09:43 Dose: 325 mg Hydroxyzine HCl (Atarax) 50 mg PO Q6H PRN PRN Reason: ANXIETY Memantine (Namenda) 10 mg PO BID [facility] Last Admin: 02/12/18 09:44 Dose: 10 mg Timolol Maleate (Timoptic 0.5% Drops) 1 drops EACH EYE DAILY [facility] Allergies Allergy/AdvReac Type Severity Reaction Status Date / Time iodine Allergy Severe Anaphylaxis Verified 02/11/18 01:33 potassium iodide Allergy Severe Anaphylaxis Verified 02/11/18 01:33 povidone-iodine Allergy Severe Anaphylaxis Verified 02/11/18 01:33 sodium iodide Allergy Severe Anaphylaxis Verified 02/11/18 01:33 sodium iodide Allergy Severe Anaphylaxis Verified 02/11/18 01:33 Sulfa (Sulfonamide Allergy Severe Anaphylaxis Verified 02/11/18 01:33 Antibiotics) Home Medications Medication Instructions Recorded Confirmed Type amlodipine 5 mg PO DAILY 02/11/18 02/11/18 History divalproex [Depakote Sprinkles] 125 mg PO TID 02/11/18 02/11/18 History donepezil 15 mg PO DAILY 02/11/18 02/11/18 History escitalopram oxalate 10 mg PO DAILY 02/11/18 02/11/18 History ferrous sulfate 325 mg PO TID 02/11/18 02/11/18 History lisinopril 02/11/18 History memantine 10 mg PO BID 02/11/18 02/11/18 History timolol maleate [Timoptic] 1 drp OPHTHALMIC (EYE) DAILY 02/11/18 02/11/18 History Results - Labs CBC & Chem 7: 02/11/18 01:00 02/12/18 07:54 Labs: Laboratory Results - last 24 hr 02/12/18 07:54 Sodium 142 Potassium 3.7 Chloride 107 Carbon Dioxide 23.9 Anion Gap 11 BUN 23 H Creatinine 0.71 Estimated GFR 80 L Random Glucose 94 Calcium 8.7 Triglycerides 323 H Cholesterol 310 H LDL Cholesterol, Calc 183 H HDL Cholesterol 62.9 H Cholesterol/HDL Ratio 4.92 Exam Vital signs: Vital Signs 02/11/18 16:00 02/11/18 18:00 02/12/18 06:23 Temperature 98.1 F 98.3 F 98.1 F Pulse Rate 89 72 102 H Respiratory Rate 17 18 Blood Pressure 166/76 H 136/73 154/76 H Pulse Oximetry 98 96 Intake & Output 02/11/18 02/12/18 02/12/18 18:59 06:59 18:59 Intake Total 120 / 120 Balance 120 / 120 Weight 68.8 kg 52 kg Intake: Oral 120 / 120 Other: Weight On Admission 68.8 kg Narrative: Patient seen in the room laying quietly in her leaning over on his side and holding herself up with her elbows is in no acute distress she is in no respiratory distress, no complaints of chest pain or abdominal pain. Patient noted to be moving all 4 extremities Mental Status Examination Appearance: Appropriate, Well dressed/well groomed Consciousness: Alert Orientation: Person, Place, Date/Time (Patient laying in bed) Motor Activity: Other (with walker) Speech: Unremarkable Language: Adequate Fund of Knowledge: Adequate Attention and Concentration: Adequate Memory: Unremarkable (Fair) Mood: Other (Euthymic to mildly dysphoric) Affect: Other (Good range and intensity) Thought Process & Associations: Goal directed (she mentions the alprazolam to all staff) Thought Content: Appropriate Hallucination Type: None Delusion Type: None Suicidal Ideation: Yes (Patient making vague delusions at this time) Suicidal Plan: Yes (Patient making vague delusions at this time) Suicidal Intention: No Homicidal Ideation: No Homicidal Plan: No Homicidal Intention: No Insight: Poor Judgment: Impulsive Assessment and Plan - Assessment (1) Major depressive disorder, recurrent severe without psychotic features Code(s): F33.2 - Major depressive disorder, recurrent severe without psychotic features Status: Acute - Plan Plan: Estimated LOS: [5-7] days At this time patient meets criteria for further inpatient psychiatric hospitalization will monitor medications will have hospitalist consult will us have OT PT consult will us. We will continue medications per the med reconciliation Justification for Continued Inpatient Stay: At this time patient would decompensate a place to a lower level of care Discharge Planning: [facility] to her [facility] Request Healthcare Surrogate/Guardian Advocate?: No
[2018-02-12 15:04] LABS: Hemoglobin A1c 5.3 % (4.3-6.0)
--- NOTE | 2018-02-12 15:13 | P.CON ---
History of Present Illness Service: [facility] Consult date: 02/12/18 Requesting Physician: Pablo Encinas Reason for Consult: HTN Primary Care Provider: Mery Trujillo Chief Complaint: Depression History of Present Illness: 77-year-old female with past medical history significant for HTN, HLD, atrial fibrillation, Parkinson's, anxiety, depression and restless leg syndrome who lives at [facility] who presented to the emergency department on 02/11 on a voluntary basis for evaluation of increased depression. Patient reports that she began feeling more depressed and at the urging of her daughter felt it was a good idea to come in for further evaluation. [facility] has been consulted for evaluation of hypertension. Patient is seen and examined in her room sitting on the side of the bed. She is awake, alert, and oriented 3. She denies any recent fevers, chills, nausea, vomiting, diarrhea, cough, shortness of breath, lightheadedness, dizziness or chest pain. Patient reports that she has chronic headaches and has seen specialists for this including neurologists without clear answers behind her chronic headaches. She reports that recently these have been better. She reports some insomnia overnight and states that she was unable to sleep, was seen by the psychiatrist today and medications will be adjusted. Patient also reports that she had a cholecystectomy as well as hiatal hernia surgery in the 70s and following this had chronic diarrhea. At some point she was placed on Questran with improvement of diarrhea however later developed constipation for which question had to be tapered off. Today she reports one episode of liquid stools, denies any nausea, vomiting or nominal pain. Review of Systems All other systems reviewed negative except as stated in HPI [facility] - History History Provided By: Patient, Medical Record - Medical History Medical History: Medical History (Last Reviewed 02/12/18 @ 15:13 by To Chapin) Anxiety Atrial fibrillation Chronic pain Depression Fusion of spine HTN (hypertension) Hypothyroid Insomnia Migraine Mild cognitive impairment Parkinson disease Restless leg syndrome TIA (transient ischemic attack) UTI (urinary tract infection) - Surgical History Surgical History: Surgical History (Last Updated 02/12/18 @ 15:49 by To Chapin) History of repair of hiatal hernia S/P cholecystectomy - Tobacco History Second Hand Smoke Exposure: No Tobacco Use In Past 30 Days: No Smoking Status: Never smoker Tobacco Type: Cigarettes - Alcohol History How Often Do You Have a Drink Containing Alcohol: Never - Substance Use History Substance History: No History of Abuse - Substance Use Type Opiates Type: as per ED report daughter stated a history of medication abuse, patient den Status: Active Route Used: By Mouth Reason for Use: Calm Down - Travel History Recent Travel in the [place] Within the Last 8 Weeks: No Recent Travel Out of the Country Within the Last 8 Weeks: No - Immunization History Tetanus Immunization: Unsure Hx Influenza Vaccine This Season: Yes Medications and Allergies Active Medications: Active Medications Acetaminophen (Tylenol) 650 mg PO Q6H PRN PRN Reason: PAIN SCALE 1 TO 10 Last Admin: 02/11/18 17:59 Dose: 650 mg Al Hydrox/Mg Hydrox/Simethicone (Mag-Al Plus Susp Liq) 30 ml PO Q6H PRN PRN Reason: DYSPEPSIA Al Hydroxide/Mg Hydroxide (Milk Of Magnesia Liq) 30 ml PO Q12H PRN PRN Reason: Mild Constipation Amlodipine Besylate (Norvasc) 5 mg PO DAILY [facility] Last Admin: 02/12/18 09:42 Dose: 5 mg Apixaban (Eliquis) 5 mg PO BID [facility] Carbidopa/Levodopa (Sinemet 25/100 Mg) 0.5 tab PO TID [facility] Diphenhydramine HCl (Benadryl) 50 mg PO HS PRN PRN Reason: INSOMNIA Divalproex Sodium (Depakote Sprinkles) 125 mg PO TID [facility] Last Admin: 02/12/18 09:44 Dose: 125 mg Donepezil HCl (Aricept) 15 mg PO DAILY [facility] Last Admin: 02/12/18 09:43 Dose: 15 mg Escitalopram Oxalate (Lexapro) 10 mg PO DAILY [facility] Last Admin: 02/12/18 09:44 Dose: 10 mg Ferrous Sulfate (Ferosul) 325 mg PO TID [facility] Last Admin: 02/12/18 09:43 Dose: 325 mg Hydroxyzine HCl (Atarax) 50 mg PO Q6H PRN PRN Reason: ANXIETY Lisinopril (Prinivil) 10 mg PO BID [facility] Memantine (Namenda) 10 mg PO BID [facility] Last Admin: 02/12/18 09:44 Dose: 10 mg Non-Formulary Medication (Gabapentin) 300 mg PO TID [facility] Non-Formulary Medication (Terazosin) 1 mg PO BID [facility] Quetiapine Fumarate (Seroquel) 25 mg PO HS [facility] Timolol Maleate (Timoptic 0.5% Drops) 1 drops EACH EYE DAILY [facility] Allergies Allergy/AdvReac Type Severity Reaction Status Date / Time iodine Allergy Severe Anaphylaxis Verified 02/11/18 01:33 potassium iodide Allergy Severe Anaphylaxis Verified 02/11/18 01:33 povidone-iodine Allergy Severe Anaphylaxis Verified 02/11/18 01:33 sodium iodide Allergy Severe Anaphylaxis Verified 02/11/18 01:33 sodium iodide Allergy Severe Anaphylaxis Verified 02/11/18 01:33 Sulfa (Sulfonamide Allergy Severe Anaphylaxis Verified 02/11/18 01:33 Antibiotics) Home Medications Medication Instructions Recorded Confirmed Type amlodipine 10 mg PO DAILY 02/11/18 02/12/18 History divalproex [Depakote Sprinkles] 125 mg PO TID 02/11/18 02/11/18 History donepezil 15 mg PO DAILY 02/11/18 02/11/18 History escitalopram oxalate 10 mg PO DAILY 02/11/18 02/11/18 History ferrous sulfate 325 mg PO TID 02/11/18 02/11/18 History lisinopril 10 mg PO BID 02/11/18 02/12/18 History memantine 10 mg PO BID 02/11/18 02/11/18 History timolol maleate [Timoptic] 1 drp OPHTHALMIC (EYE) DAILY 02/11/18 02/11/18 History apixaban [Eliquis] 5 mg PO BID 02/12/18 02/12/18 History carbidopa-levodopa [Sinemet] 0.5 tab PO TID 02/12/18 02/12/18 History colestipol 2 tab PO BID 02/12/18 02/12/18 History gabapentin 300 mg PO TID 02/12/18 02/12/18 History propranolol 60 mg PO TID 02/12/18 02/12/18 History terazosin 1 mg PO BID 02/12/18 02/12/18 History Physical Exam Vital signs: Vital Signs 02/11/18 16:00 02/11/18 18:00 02/12/18 06:23 Temperature 36.7 C 36.8 C 36.7 C Pulse Rate 89 72 102 H Respiratory Rate 17 18 Blood Pressure 166/76 H 136/73 154/76 H Pulse Oximetry 98 96 Intake & Output 07/26/18 07/27/18 07/27/18 18:59 06:59 18:59 Intake Total 120 / 120 Balance 120 / 120 Weight 68.8 kg 52 kg Intake: Oral 120 / 120 Other: Weight On Admission 68.8 kg Narrative: GENERAL: Well-developed, well-nourished elderly female in no acute distress. SKIN: Warm and dry. HEAD: Atraumatic. Normocephalic. EYES: Pupils equal and round. No scleral icterus. No injection or drainage. ENT: No nasal bleeding or discharge. Mucous membranes pink and moist. NECK: Trachea midline. No JVD. CARDIOVASCULAR: Tachycardia with regular rate and rhythm. RESPIRATORY: No accessory muscle use. Clear to auscultation. Breath sounds equal bilaterally. GASTROINTESTINAL: Abdomen soft, non-tender, nondistended. + Bowel sounds in all quadrants. MUSCULOSKELETAL: Extremities without clubbing, cyanosis, or edema. No obvious deformities. NEUROLOGICAL: Awake and alert, oriented 3 no obvious cranial nerve deficits. Motor grossly within normal limits. Five out of 5 muscle strength in the arms and legs. Normal speech. PSYCHIATRIC: Appropriate mood and affect; insight and judgment normal. Assessment and Plan - Plan 77-year-old female with past medical history significant for HTN, HLD, atrial fibrillation, Parkinson's, anxiety, depression and restless leg syndrome who lives at [facility] who presented to the emergency department on 02/11 on a voluntary basis for evaluation of increased depression. Depression and anxiety Insomnia -Treatment plan per psychiatry greatly appreciated Hypertension -Currently on Norvasc 5 mg daily, restart propanolol 60 mg 3 times daily, lisinopril 10 mg twice daily -Monitor heart rate and BP and adjust accordingly Atrial fibrillation -Ray controlled with propanolol, resume Eliquis 5 mg twice daily Parkinson's -Continue Sinemet Diarrhea -Check stool for C. difficile, start Questran daily if negative DVT prophylaxis-ambulation Thank you Dr. Encinas for this consultation. We will continue to follow along.
[2018-02-12] MEDS: Gabapentin 300 MG Capsule PO SCH (18:42)
[2018-02-12] MEDS: Lisinopril 10 MG Tablet PO SCH (21:44)
[2018-02-12] MEDS: QUEtiapine 25 MG Tablet PO SCH (21:47)
[2018-02-13] MEDS: Acetaminophen 325 MG Tablet PO PRN (04:11)
[2018-02-13] MEDS: Lisinopril 10 MG Tablet PO SCH ×2 (10:25→20:49)
[2018-02-13] MEDS: Escitalopram 10 MG Tablet PO SCH (10:29)
[2018-02-13] MEDS: amLODIPine 5 MG Tablet PO SCH (10:32)
[2018-02-13] MEDS: Ferrous Sulfate 325 MG Tablet PO SCH ×3 (10:32→19:39)
[2018-02-13] MEDS: Divalproex 125 MG Sprinkles Capsule PO SCH ×3 (10:36→19:41)
[2018-02-13] MEDS: Gabapentin 300 MG Capsule PO SCH ×3 (10:36→19:39)
--- NOTE | 2018-02-13 11:11 | P.PN ---
Subjective Interval history: Follow-up visit for hypertension, A. fib, and diarrhea. Patient is seen and examined in her room resting in bed comfortably in no acute distress. She continues to have episodes of diarrhea and states that there is also mucus and liquid stool. Has moved her bowels today 3-4 times. She denies any nausea, vomiting, abdominal pain, fevers, chills, cough or shortness of breath. Physical Exam Vital signs: Vital Signs 02/12/18 18:09 02/13/18 05:11 Temperature 36.2 C L 37.1 C Pulse Rate 74 84 Respiratory Rate 18 18 Blood Pressure 131/97 H 155/75 H Pulse Oximetry 97 97 Narrative: GENERAL: Well-developed, well-nourished elderly female in no acute distress. SKIN: Warm and dry. HEAD: Atraumatic. Normocephalic. EYES: Pupils equal and round. No scleral icterus. No injection or drainage. ENT: No nasal bleeding or discharge. Mucous membranes pink and moist. NECK: Trachea midline. CARDIOVASCULAR: Regular rate and rhythm. RESPIRATORY: No accessory muscle use. Clear to auscultation. Breath sounds equal bilaterally. GASTROINTESTINAL: Abdomen soft, non-tender, nondistended. + Bowel sounds in all quadrants. MUSCULOSKELETAL: Extremities without clubbing, cyanosis, or edema. No obvious deformities. NEUROLOGICAL: Awake and alert, oriented 3 no obvious cranial nerve deficits. Motor grossly within normal limits. Normal speech. PSYCHIATRIC: Appropriate mood and affect; insight and judgment normal. Results - Labs CBC & Chem 7: 02/11/18 01:00 02/12/18 07:54 Laboratory Results - last 24 hr 02/12/18 07:54 Hemoglobin A1c 5.3 Assessment and Plan - Plan 77-year-old female with past medical history significant for HTN, HLD, atrial fibrillation, Parkinson's, anxiety, depression and restless leg syndrome who lives at [facility] who presented to the emergency department on 02/11 on a voluntary basis for evaluation of increased depression. Depression and anxiety Insomnia -Treatment plan per psychiatry greatly appreciated Hypertension -Currently on Norvasc 5 mg daily, propanolol 60 mg 3 times daily, land isinopril 10 mg twice daily -Heart rate stable, BP mildly elevated, increase Norvasc to 10 mg daily which she had been receiving at her [facility]. Atrial fibrillation -Rate controlled with propanolol, continue Eliquis 5 mg twice daily Parkinson's -Continue Sinemet Diarrhea -Check stool for C. difficile, start Questran daily if negative -Discussed with patient and nurse, obtain stool sample today. DVT prophylaxis-ambulation Discussed Condition With: Patient and RN.
[2018-02-13] MEDS: Timolol 0.5% Drops 5 ML Bottle EACH EYE SCH (11:45)
[2018-02-13] MEDS ORDERED: amLODIPine 5 MG Tablet PO ONE (12:45)
--- NOTE | 2018-02-13 15:06 | XR ---
EXAM DATE: 02/13/2018 2:47 PM EDT AGE/SEX: 77 years / Female INDICATIONS: Mid-abdominal pain. CLINICAL DATA: This is the patient's initial encounter. Patient reports that signs and symptoms have been present for 3 days and indicates a pain score of 7/10. MEDICAL/SURGICAL HISTORY: None. Cholecystectomy. Appendectomy. Hiatal hernia. COMPARISON: No prior exams available for comparison. FINDINGS: The bowel gas is nonspecific. There are no signs of obstruction or free air for technique. No definite calcified stones are identified for technique. Lumbar scoliosis is seen convexity towar ds the left with superimposed degenerative change. CONCLUSION: Unremarkable study. Electronically signed by: Rosi Mcmahon MD 02/13/2018 3:05 PM EDT
--- NOTE | 2018-02-13 15:27 | P.PNPSY ---
Subjective Remarks: Patient was seen and case was discussed with nursing. Patient remains depressed and hopeless towards the future. However today, she denies suicidal or homicidal ideas she attributes her recent thoughts to lack of access to care after moving to [place]. She is pleasant during the interview. She has complaints of diarrhea and constipation which will be addressed by the medical team Mental Status Examination Appearance: Appropriate, Well dressed/well groomed Consciousness: Alert Orientation: Person, Place, Date/Time (Patient laying in bed) Motor Activity: Other (with walker) Speech: Unremarkable Language: Adequate Fund of Knowledge: Adequate Attention and Concentration: Adequate Memory: Unremarkable (Fair) Mood: Other (Euthymic to mildly dysphoric) Affect: Other (Good range and intensity) Thought Process & Associations: Goal directed (she mentions the alprazolam to all staff) Thought Content: Appropriate Hallucination Type: None Delusion Type: None Suicidal Ideation: No Suicidal Plan: No Suicidal Intention: No Homicidal Ideation: No Homicidal Plan: No Homicidal Intention: No Insight: Poor Judgment: Impulsive Assessment and Plan - Assessment (1) Major depressive disorder, recurrent severe without psychotic features Code(s): F33.2 - Major depressive disorder, recurrent severe without psychotic features Status: Acute - Plan Plan: Continue current treatment plan Justification for Continued Inpatient Stay: Continue current treatment plan Request Healthcare Surrogate/Guardian Advocate?: No
[2018-02-13] MEDS: Lactobacillus Acidophilus/L. Spores Tablet PO SCH (20:49)
[2018-02-13] MEDS: QUEtiapine 25 MG Tablet PO SCH (20:53)
[2018-02-14] MEDS: Divalproex 125 MG Sprinkles Capsule PO SCH ×3 (08:11→18:19)
[2018-02-14] MEDS: Lisinopril 10 MG Tablet PO SCH ×2 (08:12→21:28)
[2018-02-14] MEDS: amLODIPine 10 MG Tablet PO SCH (08:12)
[2018-02-14] MEDS: Timolol 0.5% Drops 5 ML Bottle EACH EYE SCH (08:47)
[2018-02-14] MEDS: Escitalopram 10 MG Tablet PO SCH (08:47)
[2018-02-14] MEDS: Gabapentin 300 MG Capsule PO SCH ×3 (08:47→18:19)
[2018-02-14] MEDS: Lactobacillus Acidophilus/L. Spores Tablet PO SCH ×2 (08:47→21:25)
[2018-02-14] MEDS: Ferrous Sulfate 325 MG Tablet PO SCH ×3 (08:47→18:19)
--- NOTE | 2018-02-14 11:29 | P.PN ---
Subjective Interval history: Follow-up visit for hypertension, A. fib, nausea and diarrhea. Patient is seen and examined in her room resting comfortably in bed in no acute distress. She denies any further nausea, vomiting, abdominal pain, or diarrhea. She denies any fevers, chills, cough, shortness of breath or chest pain. Spoke with nurse reports no concerns overnight or this morning, daughter had questions over why her medications were changed. Discussed with nurse that Wendy has worked in the past well for her diarrhea and is working well at the moment, will continue this for now. Physical Exam Vital signs: Vital Signs 02/13/18 18:32 02/14/18 06:00 02/14/18 06:41 Temperature 36.3 C L 36.7 C 36.7 C Pulse Rate 81 70 70 Respiratory Rate 17 16 16 Blood Pressure 121/59 L 115/65 115/65 Pulse Oximetry 95 94 L 94 L Intake & Output 02/13/18 02/14/18 02/14/18 18:59 06:59 18:59 Intake Total 480 / 480 Balance 480 / 480 Intake: Oral 480 / 480 Narrative: GENERAL: Well-developed, well-nourished elderly female in no acute distress. SKIN: Warm and dry. HEAD: Atraumatic. Normocephalic. EYES: Pupils equal and round. No scleral icterus. No injection or drainage. ENT: No nasal bleeding or discharge. Mucous membranes pink and moist. NECK: Trachea midline. CARDIOVASCULAR: Regular rate and rhythm. RESPIRATORY: No accessory muscle use. Clear to auscultation. Breath sounds equal bilaterally. GASTROINTESTINAL: Abdomen soft, non-tender, nondistended. + Bowel sounds in all quadrants. MUSCULOSKELETAL: Extremities without clubbing, cyanosis, or edema. No obvious deformities. NEUROLOGICAL: Awake and alert, oriented 3 no obvious cranial nerve deficits. Motor grossly within normal limits. Normal speech. PSYCHIATRIC: Appropriate mood and affect; insight and judgment normal. Results - Labs CBC & Chem 7: 02/11/18 01:00 02/12/18 07:54 Laboratory Results - last 24 hr 02/13/18 12:35 Stl C.difficile Tox PCR Negative St C. diff Tox Epid 027 Negative - Imaging Impressions Abdomen X-Ray 02/13/18 00:00 CONCLUSION: Unremarkable study. Assessment and Plan - Plan 77-year-old female with past medical history significant for HTN, HLD, atrial fibrillation, Parkinson's, anxiety, depression and restless leg syndrome who lives at [facility] who presented to the emergency department on 02/11 on a voluntary basis for evaluation of increased depression. Depression and anxiety Insomnia -Treatment plan per psychiatry greatly appreciated Hypertension -Currently on Norvasc 5 mg daily, propanolol 60 mg 3 times daily, land isinopril 10 mg twice daily -BP and HR stable Atrial fibrillation -Rate controlled with propanolol, continue Eliquis 5 mg twice daily Parkinson's -Continue Sinemet Diarrhea, resolved -C. difficile negative, continue Questran daily. DVT prophylaxis-ambulation Discussed Condition With: Discussed with patient and nurse.
--- NOTE | 2018-02-14 13:49 | P.PNPSY ---
Subjective Remarks: Patient was seen and case discussed with nursing. Patient's vomiting has resolved she still has some intermittent diarrhea. Today she says she feels "tired, shaky." Patient says she is still quite depressed. She feels hopeless and helpless towards the future. She has fleeting suicidal ideation without intent or plan. Supportive therapy conducted during the interview. Mental Status Examination Appearance: Appropriate, Well dressed/well groomed Consciousness: Alert Orientation: Person, Place, Date/Time (Patient laying in bed) Motor Activity: Other (with walker) Speech: Unremarkable Language: Adequate Fund of Knowledge: Adequate Attention and Concentration: Adequate Memory: Unremarkable (Fair) Mood: Sad Affect: Other (Tearful) Thought Process & Associations: Goal directed (she mentions the alprazolam to all staff) Thought Content: Appropriate Hallucination Type: None Delusion Type: None Suicidal Ideation: Yes (Fleeting) Suicidal Plan: No Suicidal Intention: No Homicidal Ideation: No Homicidal Plan: No Homicidal Intention: No Insight: Poor Judgment: Impulsive Assessment and Plan - Assessment (1) Major depressive disorder, recurrent severe without psychotic features Code(s): F33.2 - Major depressive disorder, recurrent severe without psychotic features Status: Acute - Plan Plan: Continue current treatment plan Justification for Continued Inpatient Stay: Patient would decompensate in a less restrictive setting Request Healthcare Surrogate/Guardian Advocate?: No
[2018-02-14] MEDS ORDERED: Loperamide 2 MG Capsule PO PRN (15:51)
[2018-02-15] MEDS: QUEtiapine 25 MG Tablet PO SCH ×2 (00:03→22:34)
[2018-02-15] MEDS: Lactobacillus Acidophilus/L. Spores Tablet PO SCH ×2 (09:04→20:44)
[2018-02-15] MEDS: amLODIPine 10 MG Tablet PO SCH (09:04)
[2018-02-15] MEDS: Divalproex 125 MG Sprinkles Capsule PO SCH ×3 (09:04→17:47)
[2018-02-15] MEDS: Lisinopril 10 MG Tablet PO SCH ×2 (09:07→20:44)
[2018-02-15] MEDS: Gabapentin 300 MG Capsule PO SCH ×3 (09:08→17:47)
[2018-02-15] MEDS: Ferrous Sulfate 325 MG Tablet PO SCH ×3 (09:08→17:47)
[2018-02-15] MEDS: Escitalopram 10 MG Tablet PO SCH ×3 (09:08→10:30)
[2018-02-15] MEDS: Timolol 0.5% Drops 5 ML Bottle EACH EYE SCH (09:14)
--- NOTE | 2018-02-15 15:01 | P.DSPSY ---
Psychiatry Discharge Summary Inpatient Psychiatric care?: Yes Advance Directives: Yes Mental Health Advance Directive: No Health Care Proxy: No - Admission Admission Date: February 11, 2018 12:28 - Admission Diagnosis (1) Major depressive disorder, recurrent severe without psychotic features Code(s): F33.2 - Major depressive disorder, recurrent severe without psychotic features Brief History: Patient is a 77-year-old white female comes here voluntarily from a local retirement with a history of increased depression over the past few weeks. She describes both initial and mid insomnia with a.m. energy, decreased energy and decreased concentration and attention. States appetite is okay. But there is marked decrease in her ability to get enjoyment out of things she enjoyed prior. She denies voices or visions with this. She denies any self- medication. She does acknowledge increased suicidal ideation with intent of perhaps drowning herself or overdosing on pills. It appears she has a long history of depression that she has been on multiple psychotropic medications in the past, patient's daughter is her POA was shared with us that she may have misused and manipulated some psychotropic medication in the past. 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 At the present time patient does meet criteria for further inpatient psychiatric hospitalization to help stabilize her medication. We will place her on Seroquel 25 mg at at bedtime. Patient states her main concern and desire is to get a good night sleep 6 or 7 hours worth. She also does have some type of negative comment about every antidepressant that I spoke with her we will also have the hospitalist consult will us also have PT and OT consult will us Tobacco Use In Past 30 Days: No How Often Do You Have a Drink Containing Alcohol: Never Hospital Course: Patient seen in day room with floor staff, patient alert oriented calm cooperative with me patient stated she is feeling a little better today she states she feels somewhat overmedicated. And his sleep is not good here on the unit. Patient denies suicidality homicidality voice or visions. Is able contract to do no harm to herself. Patient states she wishes to go home. She feels this situation is not helping her. She wants to go back to her [facility] and follow-up with outpatient medical services. Patient does also have [employer] as an insurance. At this time patient does not meet criteria fo either voluntary or involuntary psychiatric hospitalization. Patient does not meet [place] act criteria. Thus I agree with the patient's request for discharge to self, the B no Rx by me. She may follow-up with the medical services through her [facility]. We will have her counselor investigate mental health services through [facility]. Patient may continue her own scheduled medications at her [facility] - Discharge Discharge Date: 02/15/18 - Discharge Diagnosis (1) Major depressive disorder, recurrent severe without psychotic features Code(s): F33.2 - Major depressive disorder, recurrent severe without psychotic features Status: Acute Discharge Disposition: Assisted Living Facility - Discharge Instructions Discharge Diet: Regular Diet Activities You Can Perform: Regular- No Restrictions - Discharge Time > 30 minutes Mental Status Examination Appearance: Appropriate, Well dressed/well groomed Consciousness: Alert Orientation: Person, Place, Date/Time (Patient laying in bed) Motor Activity: Other (with walker) Speech: Unremarkable Language: Adequate Fund of Knowledge: Adequate Attention and Concentration: Adequate Memory: Unremarkable (Fair) Mood: Sad Affect: Other (Tearful) Thought Process & Associations: Goal directed (she mentions the alprazolam to all staff) Thought Content: Appropriate Hallucination Type: None Delusion Type: None Suicidal Ideation: Yes (Fleeting) Suicidal Plan: No Suicidal Intention: No Homicidal Ideation: No Homicidal Plan: No Homicidal Intention: No Insight: Poor Judgment: Impulsive Discharge/Advance Care Plan - Results Vital Signs: Last Vital Signs Temp 98.7 F 02/15/18 06:33 Pulse 64 02/15/18 06:33 Resp 17 02/15/18 06:33 BP 166/70 H 02/15/18 06:33 Pulse Ox 96 02/15/18 06:33 Lab Results: Laboratory Results Hemoglobin A1c 5.3 % (4.3-6.0) 02/12/18 07:54 Triglycerides 323 mg/dL (42-150) H 02/12/18 07:54 Cholesterol 310 mg/dL (120-200) H 02/12/18 07:54 LDL Cholesterol, Calc 183 mg/dL (0-99) H 02/12/18 07:54 HDL Cholesterol 62.9 mg/dL (40.0-60.0) H 02/12/18 07:54 TSH 1.960 uIU/mL (0.358-3.740) 02/11/18 01:00 Urine Culture Comments Culture not ind 02/11/18 01:00 Summary of Procedures: None done Imaging: ITS Impressions Abdomen X-Ray 02/13/18 00:00 CONCLUSION: Unremarkable study. Pending Results: None - Medications Number of antipsychotic medications at discharge: 0 - Discharge Care Plan Goals to Promote Your Health: * To prevent worsening of your condition and complications * To maintain your health at the optimal level Directions to Meet Your Goals: Take your medications as prescribed Follow your dietary instruction Follow activity as directed Keep your appointments as scheduled Take your immunizations and boosters as scheduled If your symptoms worsen call your PCP, if no PCP go to Urgent Care Center or Emergency Room For 09/02 questions related to your inpatient stay or results of tests pending at discharge, please contact Dr. Pablo Encinas MD at Smoking is Dangerous to Your Health. Avoid second hand smoking
[2018-02-16] MEDS: Timolol 0.5% Drops 5 ML Bottle EACH EYE SCH (10:12)
[2018-02-16] MEDS: Lisinopril 10 MG Tablet PO SCH (10:14)
[2018-02-16] MEDS: Escitalopram 10 MG Tablet PO SCH (10:16)
[2018-02-16] MEDS: Lactobacillus Acidophilus/L. Spores Tablet PO SCH (10:16)
[2018-02-16] MEDS: Gabapentin 300 MG Capsule PO SCH (10:16)
[2018-02-16] MEDS: amLODIPine 10 MG Tablet PO SCH (10:16)
[2018-02-16] MEDS: Ferrous Sulfate 325 MG Tablet PO SCH (10:16)
[2018-02-16] MEDS: Divalproex 125 MG Sprinkles Capsule PO SCH (10:17)
--- NOTE | 2018-02-16 13:04 | P.PNPSY ---
Subjective Remarks: Patient was not able to be discharged yesterday. Though discharge summary was dictated yesterday. Today placement has been found at [facility]. Patient to be discharged there today Rx 1 month for her scheduled meds have been written. Jd to transport her to that facility. The follow-up mental health and medical services through that facility. I will also made in amendment to the discharge summary dictated yesterday with no change in patient's presentation Review of Systems All other systems reviewed negative except as stated in HPI Mental Status Examination Appearance: Appropriate, Well dressed/well groomed Consciousness: Alert Orientation: Person, Place, Date/Time (Patient laying in bed) Motor Activity: Other (with walker) Speech: Unremarkable Language: Adequate Fund of Knowledge: Adequate Attention and Concentration: Adequate Memory: Unremarkable (Fair) Mood: Sad Affect: Other (Tearful) Thought Process & Associations: Goal directed (she mentions the alprazolam to all staff) Thought Content: Appropriate Hallucination Type: None Delusion Type: None Suicidal Ideation: Yes (Fleeting) Suicidal Plan: No Suicidal Intention: No Homicidal Ideation: No Homicidal Plan: No Homicidal Intention: No Insight: Poor Judgment: Impulsive Assessment and Plan - Assessment (1) Major depressive disorder, recurrent severe without psychotic features Code(s): F33.2 - Major depressive disorder, recurrent severe without psychotic features Status: Acute - Plan Plan: Patient to be discharged today to [facility] discharge summary has been dictated yesterday Justification for Continued Inpatient Stay: Discharge today to [facility] Discharge Planning: Discharge today to [facility] Request Healthcare Surrogate/Guardian Advocate?: No
== END 2018-02-16 13:40 ==
LOC: NEPD 21:30 → NEDA 02-11 12:28 → H260 02-11 14:02
PROVIDERS: ADMIT Psychiatry & Neurology Psychiatry; ATTEND Psychiatry & Neurology Psychiatry
DX: I48.91 Unspecified atrial fibrillation; G25.81 Restless legs syndrome; R19.7 Diarrhea, unspecified; I10 Essential (primary) hypertension; Z88.2 Allergy status to sulfonamides; E78.5 Hyperlipidemia, unspecified; Z79.01 Long term (current) use of anticoagulants; Z88.8 Allergy status to other drugs, medicaments and biological substances; G47.00 Insomnia, unspecified; K59.00 Constipation, unspecified; F41.9 Anxiety disorder, unspecified; F33.2 Major depressive disorder, recurrent severe without psychotic features; G89.29 Other chronic pain; Z79.899 Other long term (current) drug therapy; G20 Parkinson's disease; G43.909 Migraine, unspecified, not intractable, without status migrainosus; Z86.73 Personal history of transient ischemic attack (TIA), and cerebral infarction without residual deficits; R45.851 Suicidal ideations; E03.9 Hypothyroidism, unspecified; Z98.1 Arthrodesis status

== ENCOUNTER 2018-02-17 16:32 | Inpatient (IN) ==
[2018-02-17] MEDS ORDERED: Sod Chloride 0.9% Inj 1,000 ML IV.CONT SCH (17:00)
--- NOTE | 2018-02-17 17:13 | ED ---
HPI General Chief complaint: Neuro Symptoms/Deficit Stated complaint: Evac/Poss Stroke Time Seen by Provider: 02/17/18 16:42 Source: patient, family, RN notes reviewed and old records reviewed Mode of arrival: EMS Limitations: no limitations History of Present Illness HPI narrative: 77 year old female Patient states that pain is mild, 1-2 out of 10.Presents to the emergency department from nursing facility for evaluation of left visual changes with associated pain. 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 She states that she sees a retinal specialist, Dr. Dennis. Last time was in October. She sees him every 6 months. 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 Patient states that the symptoms she is having in her left eye are similar to the symptoms she had in her right eye. She states that she started with blurry vision and pain at approximately 9 AM, 8 hours ago. She states the pain starts in the left eye and radiates up. Current pain is 9/10, throbbing. She is on Eliquis. Patient also reports some left-sided chest pain that she states started when she noticed that her vision was getting blurry. She believes that she was anxious from her eyesight changes. Moderate severity. Onset (ago): hour(s) (8) Location: eyes Radiation: other (forehead) Severity: moderate Severity scale (1-10): 9 Quality: aching and other Pain Consistency: constant Relieving factors: none Exacerbating factors: none Associated symptoms: other (blurry vision, spider webs in vision) Related Data Home Medications Medication Instructions Recorded Confirmed acetaminophen [Tylenol] 650 mg PO BID 02/17/18 02/17/18 divalproex 500 mg PO DAILY 02/17/18 02/17/18 lisinopril 20 mg PO BID 02/17/18 02/17/18 mirtazapine 30 mg PO DAILY 02/17/18 02/17/18 nystatin [Nystop] 1 applic TOPICAL BID 02/17/18 02/17/18 propranolol 60 mg PO TID 02/17/18 02/17/18 Previous Rx's Medication Instructions Recorded amlodipine 10 mg PO DAILY #30 tab 02/16/18 apixaban [Eliquis] 5 mg PO BID #60 tab 02/16/18 carbidopa-levodopa [Sinemet] 0.5 tab PO TID #90 tab 02/16/18 colestipol [Colestid] 5 gm PO DAILY #30 ea 02/16/18 terazosin 1 mg PO BID #60 cap 02/16/18 Allergies Allergy/AdvReac Type Severity Reaction Status Date / Time iodine Allergy Severe Anaphylaxis Verified 02/11/18 01:33 potassium iodide Allergy Severe Anaphylaxis Verified 02/11/18 01:33 povidone-iodine Allergy Severe Anaphylaxis Verified 02/11/18 01:33 sodium iodide Allergy Severe Anaphylaxis Verified 02/11/18 01:33 sodium iodide Allergy Severe Anaphylaxis Verified 02/11/18 01:33 Sulfa (Sulfonamide Allergy Severe Anaphylaxis Verified 02/11/18 01:33 Antibiotics) diphenhydramine AdvReac Tachycardia Verified 02/13/18 19:33 [From Benadryl] Review of Systems Except as stated in HPI: all other systems reviewed are negative [facility] Medical History Medical History Anxiety (Acute) Atrial fibrillation (Acute) Chronic pain (Acute) Depression (Acute) Fusion of spine (Acute) HTN (hypertension) (Acute) Hypothyroid (Acute) Insomnia (Acute) Migraine (Acute) Mild cognitive impairment (Acute) Parkinson disease (Acute) Restless leg syndrome (Acute) TIA (transient ischemic attack) (Acute) UTI (urinary tract infection) (Acute) Surgical History Surgical History History of repair of hiatal hernia (Acute) S/P cholecystectomy (Acute) Social History Social History Substance History: No History of Abuse Second Hand Smoke Exposure: No Smoking Status: Never smoker Tobacco Type: Cigarettes How Often Do You Have a Drink Containing Alcohol: Never Recent Travel in [facility] within the Last 8 Weeks: No Recent Out of Country Travel within the Last 8 Weeks: No Immunization History Tetanus Immunization: <5 Years Exam Narrative Exam Narrative: GENERAL: Well-nourished, well-developed female patient, afebrile SKIN: Focused skin assessment warm/dry. HEAD: Normocephalic. Atraumatic EYES: No scleral icterus. No injection or drainage. EOM intact. Patient can count fingers without difficulty NECK: Supple, trachea midline. No JVD or lymphadenopathy. CARDIOVASCULAR: Regular rate and rhythm without murmurs, gallops, or rubs. RESPIRATORY: Breath sounds equal bilaterally. No accessory muscle use. Lung sounds are clear to auscultation GASTROINTESTINAL: Abdomen soft, non-tender, nondistended. MUSCULOSKELETAL: No cyanosis, or edema. BACK: Nontender without obvious deformity. No CVA tenderness. NEUROLOGICAL: Awake and alert. Cranial nerves II through XII intact. Motor and sensory grossly within normal limits. Five out of 5 muscle strength in all muscle groups. Normal speech. Finger to nose is normal bilaterally. Heel to luna is normal bilaterally. Course Initial Documented Vital Signs Temperature 98.4 F 02/17/18 16:39 Pulse Rate 70 02/17/18 16:39 Respiratory Rate 15 02/17/18 16:39 Blood Pressure 136/63 02/17/18 16:39 Pulse Oximetry 97 02/17/18 16:39 Last Documented Vital Signs Temperature 98.4 F 02/17/18 16:39 Pulse Rate 72 02/17/18 19:03 Respiratory Rate 18 02/17/18 19:03 Blood Pressure 160/69 H 02/17/18 19:03 Pulse Oximetry 98 02/17/18 19:03 Medical Decision Making THU Attestation THU supervised visit: Yes Attestation: The history, exam, and medical decision-making in the associated mid-level provider note were completed with my assistance. I reviewed and agree with the findings presented. I attest that I had a [id number] encounter with the patient on the same day, and personally performed and documented my assessment and findings in the medical record. *My assessment and Findings: [default value] 77-year-old woman with history of [employer] V[employer]OR [id number], now with symptoms tomorrow. At risk for total blindness. Symptoms been ongoing since this morning. Not candidate for TPA. I do not see a definite [employer] V[employer]OR on exam. Recommend admission for further evaluation. [facility] Narrative Medical decision making narrative: 77-year-old female presents to the emergency department for evaluation of left eyes visual changes with pain and associated chest pain. ESR and CRP will be obtained to rule out temporal arteritis. EKG, CBC, ESR, CMP, CRP, CK, troponin, magnesium, PTT, PT/INR, CT the brain are ordered and pending. EKG shows SR, HR 69, no acute ST changes. CBC shows no acute abnormalities. ESR is 32. CMP shows BUN 29. CRP is less than 0.29. CK is 52. Troponin is less than 0.02. Magnesium is 2.3. PTT is 27.8. PT/INR is 10.3/1.0. CT of the brain is negative. Chest x-ray shows no acute abnormality. Neurologist, Dr. Calixto, is paged. She recommends CTA of the [place], CTA of the carotids if patient's creatinine can handle it as well as MRI brain without contrast and consult to ophthalmology. Patient reports anaphylaxis to contrast. MRI is ordered. MRA of the brain and MRA carotids are ordered and pending. Hospitalist is paged for admission. Dr. Cristobal accepted admission. Differential Diagnosis Differential Diagnosis: CRAO vs. temporal arteritis vs. intracranial hemorrhage vs. migraine headache Medical Records Medical records reviewed: Yes I reviewed the patient's medical records. Lab Data Result diagrams: 02/17/18 17:12 02/17/18 17:12 Lab Results 02/17/18 02/17/18 02/17/18 Range/Units 17:12 17:12 17:12 WBC 7.2 (4.0-11.0) th/mm3 RBC 3.97 L (4.00-5.30) mil/mm3 Hgb 11.8 (11.6-15.3) gm/dL Hct 36.3 (35.0-46.0) % MCV 91.4 (80.0-100.0) fL MCH 29.8 (27.0-34.0) pg MCHC 32.6 (32.0-36.0) % RDW 14.7 (11.6-17.2) % Plt Count 232 (150-450) th/mm3 MPV 9.9 (7.0-11.0) fL Neut % (Auto) 52.1 (16.0-70.0) % Lymph % (Auto) 39.3 (9.0-44.0) % [place] % (Auto) 5.8 (0.0-8.0) % Eos % (Auto) 2.0 (0.0-4.0) % Baso % (Auto) 0.8 (0.0-2.0) % Neut # (Auto) 3.8 (1.8-7.7) th/mm3 Lymph # (Auto) 2.8 (1.0-4.8) th/mm3 [place] # (Auto) 0.4 (0.0-0.9) th/mm3 Eos # (Auto) 0.1 (0.0-0.4) th/mm3 Baso # (Auto) 0.1 (0.0-0.2) th/mm3 WBC Differential . Differential Comment Auto diff final ESR (0-30) mm/hr PT 10.3 (9.8-11.6) sec INR 1.0 Ratio APTT 27.8 (24.3-30.1) sec Sodium 145 (136-145) meq/L Potassium 4.4 (3.5-5.1) meq/L Chloride 110 H (98-107) meq/L Carbon Dioxide 27.0 (21.0-32.0) meq/L Anion Gap 8 (5-15) meq/L BUN 29 H (7-18) mg/dL Creatinine 1.00 (0.50-1.00) mg/dL Estimated GFR 54 L (>89) mL/min Random Glucose 90 (74-106) mg/dL Calcium 8.8 (8.5-10.1) mg/dL Magnesium 2.3 (1.5-2.5) mg/dL Total Bilirubin 0.3 (0.2-1.0) mg/dL AST 16 (15-37) U/L ALT 17 (10-53) U/L Alkaline Phosphatase 81 (45-117) U/L Total Creatine Kinase 52 (26-192) U/L Troponin I Less than 0.02 L (0.02-0.05) ng/mL C-Reactive Protein (0.00-0.30) mg/dL Total Protein 7.5 D (6.4-8.2) g/dL Albumin 3.4 (3.4-5.0) g/dL 02/17/18 02/17/18 Range/Units 17:12 17:12 WBC (4.0-11.0) th/mm3 RBC (4.00-5.30) mil/mm3 Hgb (11.6-15.3) gm/dL Hct (35.0-46.0) % MCV (80.0-100.0) fL MCH (27.0-34.0) pg MCHC (32.0-36.0) % RDW (11.6-17.2) % Plt Count (150-450) th/mm3 MPV (7.0-11.0) fL Neut % (Auto) (16.0-70.0) % Lymph % (Auto) (9.0-44.0) % [place] % (Auto) (0.0-8.0) % Eos % (Auto) (0.0-4.0) % Baso % (Auto) (0.0-2.0) % Neut # (Auto) (1.8-7.7) th/mm3 Lymph # (Auto) (1.0-4.8) th/mm3 [place] # (Auto) (0.0-0.9) th/mm3 Eos # (Auto) (0.0-0.4) th/mm3 Baso # (Auto) (0.0-0.2) th/mm3 WBC Differential Differential Comment ESR 32 H (0-30) mm/hr PT (9.8-11.6) sec INR Ratio APTT (24.3-30.1) sec Sodium (136-145) meq/L Potassium (3.5-5.1) meq/L Chloride (98-107) meq/L Carbon Dioxide (21.0-32.0) meq/L Anion Gap (5-15) meq/L BUN (7-18) mg/dL Creatinine (0.50-1.00) mg/dL Estimated GFR (>89) mL/min Random Glucose (74-106) mg/dL Calcium (8.5-10.1) mg/dL Magnesium (1.5-2.5) mg/dL Total Bilirubin (0.2-1.0) mg/dL AST (15-37) U/L ALT (10-53) U/L Alkaline Phosphatase (45-117) U/L Total Creatine Kinase (26-192) U/L Troponin I (0.02-0.05) ng/mL C-Reactive Protein Less than 0.29 (0.00-0.30) mg/dL Total Protein (6.4-8.2) g/dL Albumin (3.4-5.0) g/dL Imaging Data Radiologist's impression: Chest X-Ray 02/17/18 16:57 CONCLUSION: Clear lungs. Head CT 02/17/18 16:57 CONCLUSION: 1. Negative CT Head non contrast. . Discharge Plan Discharge Disposition Patient Disposition: 30 Still Patient Discharge Details Diagnosis: Vision disturbance, Cephalgia Physicians Team ED Provider: Daniel Christianson ED Midlevel Provider: Sydnee Gautam Attending Provider: Deepika Cristobal Status ED Status: Admitted Patient
[2018-02-17 17:24] LABS: Baso # (Auto) 0.1 th/mm3 (0.0-0.2); Baso % (Auto) 0.8 % (0.0-2.0); Eos # (Auto) 0.1 th/mm3 (0.0-0.4); Hematocrit 36.3 % (35.0-46.0); Hemoglobin 11.8 gm/dL (11.6-15.3); Lymph # (Auto) 2.8 th/mm3 (1.0-4.8); Lymph % (Auto) 39.3 % (9.0-44.0); Mean Corpuscular HGB Conc 32.6 % (32.0-36.0); Mean Corpuscular Hemoglobin 29.8 pg (27.0-34.0); Mean Corpuscular Volume 91.4 fL (80.0-100.0); Mean Platelet Volume 9.9 fL (7.0-11.0); Mono # (Auto) 0.4 th/mm3 (0.0-0.9); Mono % (Auto) 5.8 % (0.0-8.0); Neut # (Auto) 3.8 th/mm3 (1.8-7.7); Neut % (Auto) 52.1 % (16.0-70.0); Platelet Count 232 th/mm3 (150-450); Red Blood Count 3.97 mil/mm3 (4.00-5.30); Red Cell Distribution Width 14.7 % (11.6-17.2); White Blood Count 7.2 th/mm3 (4.0-11.0)
--- NOTE | 2018-02-17 17:24 | XR ---
EXAM DATE: 02/17/2018 5:18 PM EDT AGE/SEX: 77 years / Female INDICATIONS: Chest pain upper left side. EVAC/Poss Stroke. "Patient released from Psych on 02/16/18 a nd had meds changed" per patient's daughter. CLINICAL DATA: This is the patient's initial encounter. Patient reports that signs and symptoms have been present for 1 day and indicates a pain score of 3/10. MEDICAL/SURGICAL HISTORY: Dementia. Seizures. High blood pressure. High cholesterol. Anxiety. Appendectomy. Fusion, cervical. Hiatal hernia repair. Gallbladder removed. COMPARISON: [facility] [place], 01/[place]. . FINDINGS: ACDF hardware overlies the cervical spine. Lungs are clear. Cardiomegaly. CONCLUSION: Clear lungs. Electronically signed by: Abdiel Nelson MD 02/17/2018 5:23 PM EDT
[2018-02-17 17:34] LABS: Activated Partial Thrombo Time 27.8 sec (24.3-30.1); Prothrombin Time 10.3 sec (9.8-11.6)
[2018-02-17 17:47] LABS: Alanine Aminotransferase 17 U/L (10-53); Albumin 3.4 g/dL (3.4-5.0); Alkaline Phosphatase 81 U/L (45-117); Anion Gap 8 meq/L (5-15); Aspartate Aminotransferase 16 U/L (15-37); Blood Urea Nitrogen 29 mg/dL (7-18); Calcium 8.8 mg/dL (8.5-10.1); Chloride 110 meq/L (98-107); Creatine Kinase 52 U/L (26-192); Glomerular Filtration Rate 54 mL/min (>89); Glucose,Random 90 mg/dL (74-106); Magnesium 2.3 mg/dL (1.5-2.5); Potassium 4.4 meq/L (3.5-5.1); Sodium 145 meq/L (136-145); Total Protein 7.5 g/dL (6.4-8.2)
--- NOTE | 2018-02-17 17:57 | CT ---
EXAM DATE: 02/17/2018 5:50 PM EDT AGE/SEX: 77 years / Female INDICATIONS: Pain behind left eye, visual disturbance. CLINICAL DATA: This is the patient's initial encounter. Patient reports that signs and symptoms have been present for 1 day and indicates a pain score of 3/10. MEDICAL/SURGICAL HISTORY: Transient ischemic attack. Hypertension. Parkinson's disease. Cholecyst ectomy. RADIATION DOSE: 40.77 CTDI (mGy) COMPARISON: [facility] – [place], [place], CT BRAIN W/O CONTRAST, 12/10/2017. . TECHNIQUE: CT of the head without contrast. Using automated exposure control and adjustment of the mA and/or kV according to patient size, radiation dose was kept as low as reasonably achievable to ob tain optimal diagnostic quality images. DICOM format image data is available electronically for revi ew and comparison. FINDINGS: Cerebrum: The ventricles are normal for age. No evidence of midline shift, mass lesion, hemorrhage or acute infarction. No extraaxial fluid collections are seen. Posterior Fossa: The cerebellum and brainstem are intact. The 4th ventricle is midline. The cerebe llopontine angle is unremarkable. Extracranial: The visualized portion of the orbits is intact. Skull: The calvaria is intact. No evidence of skull fracture. CONCLUSION: 1. Negative CT Head non contrast. . Electronically signed by: Abdiel Nelson MD 02/17/2018 5:56 PM EDT
[2018-02-17] MEDS ORDERED: Gadobutrol PF 10 MMOL/10 ML Vial (for RAD) IV.SIG ONE (18:00)
[2018-02-17] MEDS ORDERED: Bisacodyl 10 MG Supp RECTAL PRN (19:03)
[2018-02-17] MEDS ORDERED: Acetaminophen 325 MG Tablet PO PRN (19:03)
--- NOTE | 2018-02-17 21:15 | MR ---
EXAM DATE: 02/17/2018 7:59 PM EDT AGE/SEX: 77 years / Female INDICATIONS: CVA. Left eye pain and blurred vision. CLINICAL DATA: This is the patient's initial encounter. Patient reports that signs and symptoms have been present for 1 day and indicates a pain score of 0/10. MEDICAL/SURGICAL HISTORY: Cerebrovascular disease. Transient ischemic attack. Appendectomy. C holecystectomy. Fusion, cervical. Hysterectomy. Tonsillectomy. COMPARISON: No prior exams available for comparison. TECHNIQUE: Multiplanar, multisequence examination of the brain was performed without contrast. FINDINGS: There is mild atrophic changes and mild to moderate chronic ischemic changes. No hydrocephalus. No ab normal extra-axial fluid collections. No sellar mass. No recent infarct on the diffusion-weighted tereza ges. CONCLUSION: 1. No acute findings. Mild chronic white matter ischemic changes. No recent infarct. Electronically signed by: Amrit Wasserman MD 02/17/2018 9:13 PM EDT
--- NOTE | 2018-02-17 21:16 | MR ---
EXAM DATE: 02/17/2018 8:37 PM EDT AGE/SEX: 77 years / Female INDICATIONS: Stenosis. CLINICAL DATA: This is the patient's initial encounter. Patient reports that signs and symptoms have been present for 1 day and indicates a pain score of 0/10. MEDICAL/SURGICAL HISTORY: Cerebrovascular disease. Transient ischemic attack. Appendectomy. C holecystectomy. Fusion, cervical. Hysterectomy. Tonsillectomy. COMPARISON: No prior exams available for comparison. TECHNIQUE: 10 ml Gadavist (gadobutrol) contrast infused MRA (single exam dose) of the extracranial circulation was performed using a neurovascular coil. Postprocessing was performed, including rotati ng sub-volume maximum intensity projections of each carotid artery, rotating full-volume maximum inte nsity projections of both carotid arteries, sagittal and coronal sliding thin-slab reformations of ea ch carotid artery, and left oblique sliding thin-slab reformation through the aortic arch to include the origin of the arch branch vessels. FINDINGS: Aortic Arch : There is a three-vessel origin of the great vessels from the aorta. No evidence of o stial narrowing. Right Carotid : The common carotid artery is intact. The carotid bulb has a normal configuration wi thout ulceration or narrowing. The internal carotid artery lumen is smooth without stenosis. The ex ternal carotid artery is intact. Left Carotid : The common carotid artery is intact. The carotid bulb has a normal configuration wit hout ulceration or narrowing. The internal carotid artery lumen is smooth without stenosis. The ext ernal carotid artery is intact. Vertebrals : The vertebral arteries have a symmetric diameter. No stenotic lesions are seen. CONCLUSION: 1. Examination within normal limits for age. No carotid stenosis. Percent stenosis is calculated using the diameter of the stenotic region over the diameter of the nor mal distal internal carotid artery Electronically signed by: Amrit Wasserman MD 02/17/2018 9:15 PM EDT
--- NOTE | 2018-02-17 21:16 | MR ---
EXAM DATE: 02/17/2018 7:58 PM EDT AGE/SEX: 77 years / Female INDICATIONS: CVA. Left eye pain and blurred vision. CLINICAL DATA: This is the patient's initial encounter. Patient reports that signs and symptoms have been present for 1 day and indicates a pain score of 0/10. MEDICAL/SURGICAL HISTORY: Cerebrovascular disease. Transient ischemic attack. Appendectomy. C holecystectomy. Fusion, cervical. Hysterectomy. Tonsillectomy. COMPARISON: No prior exams available for comparison. TECHNIQUE: 3D [id number] MRA was performed. Source images, multiplanar STS MIP, and 3D volum e MIP reconstructions were reviewed. FINDINGS: There is excellent visualization of the major intracranial arteries out to the second-order branch ve ssels. There is no evidence for aneurysm, vessel truncation or stenosis, and no evidence for vascula r malformation. CONCLUSION: 1. Examination within normal limits for age. Mild motion artifact. Electronically signed by: Amrit Wasserman MD 02/17/2018 9:14 PM EDT
[2018-02-17] MEDS ORDERED: Custom Consult Pharmacy 1 EACH OTHER SCH (22:00)
--- NOTE | 2018-02-17 22:10 | P.HPIM ---
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 She otherwise says she feels normal. All denies any chest pain, shortness of breath, fevers, chills. Denies butch headache, and just IV pain on the left. Inpatient Certification: I certify that the inpatient services were ordered in accordance with Medicare regulations governing the order. This includes certification that hospital inpatient services are reasonable and necessary and in the case of services not specified as inpatient-only under 42 CFR 419.22(n), that they are appropriately provided as inpatient services in accordance to with the 2-midnight benchmark under 43 CFR 412.3(e) Estimated Total Length of Stay (Days): 3 Plans for Post Hospital Care: Home Review of Systems All other systems reviewed negative except as stated in HPI [facility] - History History Provided By: Patient - Medical History Medical History: Medical History (Last Reviewed 02/12/18 @ 15:13 by To Chapin) Anxiety Atrial fibrillation Chronic pain Depression Fusion of spine HTN (hypertension) Hypothyroid Insomnia Migraine Mild cognitive impairment Parkinson disease Restless leg syndrome TIA (transient ischemic attack) UTI (urinary tract infection) - Surgical History Surgical History: Surgical History (Last Updated 02/12/18 @ 15:49 by To Chapin) History of repair of hiatal hernia S/P cholecystectomy - Family History Family History: Family History (Last Updated 02/17/18 @ 22:07 by Robert Zepeda MD) Grandparent No problems noted. Father CAD (coronary artery disease) Mother Cancer - Tobacco History Second Hand Smoke Exposure: No Smoking Status: Never smoker Tobacco Type: Cigarettes - Alcohol History How Often Do You Have a Drink Containing Alcohol: Never - Substance Use History Substance History: No History of Abuse - Travel History Recent Travel in the [place] Within the Last 8 Weeks: No Recent Travel Out of the Country Within the Last 8 Weeks: No - Immunization History Tetanus Immunization: <5 Years Medications and Allergies Active Medications: Active Medications Acetaminophen (Tylenol) 650 mg PO Q4H PRN PRN Reason: Temp > 100.4 Al Hydroxide/Mg Hydroxide (Milk Of Magnesia Liq) 30 ml PO Q12H PRN PRN Reason: Mild Constipation Amlodipine Besylate (Norvasc) 10 mg PO DAILY [facility] Apixaban (Eliquis) 5 mg PO BID [facility] Bisacodyl (Dulcolax Supp) 10 mg RECTAL DAILY PRN PRN Reason: SEVERE CONSITIPATION Brimonidine Tartrate (Alphagan 0.2% Opth Drops) 1 drops LEFT EYE BID [facility] Carbidopa/Levodopa (Sinemet 25/100 Mg) 0.5 tab PO TID [facility] Colestipol HCl (Colestid Pkt) 5 gm PO BID [facility] Divalproex Sodium (Depakote Er) 500 mg PO DAILY [facility] Sodium Chloride (Ns Inj) 1,000 mls @ 70 mls/hr IV.CONT .[id number] [facility] Stop: 02/18/18 07:17 Last Admin: 02/17/18 18:49 Dose: 70 mls/hr Lactulose (Lactulose Liq) 30 ml PO DAILY PRN PRN Reason: SEVERE CONSITIPATION Miscellaneous (Pill Splitter) 1 each OTHER UNSCH PRN PRN Reason: NEEDED Non-Formulary Medication (Mirtazapine [Mirtazapine]) 30 mg PO DAILY [facility] Non-Formulary Medication (Propranolol [Propranolol]) 60 mg PO TID [facility] Ondansetron HCl (Zofran Inj) 4 mg IV.PUSH Q6H PRN PRN Reason: NAUSEA OR VOMITING Senna/Docusate Sodium (Faby-Colace) 1 tab PO BID [facility] Sennosides (Senokot) 17.2 mg PO Q12H PRN PRN Reason: Moderate Constipation Sodium Chloride (Ns Flush) 2 ml IV.FLUSH PRN PRN PRN Reason: FLUSH AFTER USING IV ACCESS Terazosin HCl (Hytrin) 1 mg PO BID [facility] Timolol Maleate (Timoptic 0.5% Drops) 1 drops LEFT EYE Q12HR [facility] Allergies Allergy/AdvReac Type Severity Reaction Status Date / Time iodine Allergy Severe Anaphylaxis Verified 02/11/18 01:33 potassium iodide Allergy Severe Anaphylaxis Verified 02/11/18 01:33 povidone-iodine Allergy Severe Anaphylaxis Verified 02/11/18 01:33 sodium iodide Allergy Severe Anaphylaxis Verified 02/11/18 01:33 sodium iodide Allergy Severe Anaphylaxis Verified 02/11/18 01:33 Sulfa (Sulfonamide Allergy Severe Anaphylaxis Verified 02/11/18 01:33 Antibiotics) diphenhydramine AdvReac Tachycardia Verified 02/13/18 19:33 [From Benadryl] Home Medications Medication Instructions Recorded Confirmed Type acetaminophen [Tylenol] 650 mg PO BID 02/17/18 02/17/18 History colestipol [Colestid] 5 gm PO BID 02/17/18 02/17/18 History divalproex 500 mg PO DAILY 02/17/18 02/17/18 History lisinopril 20 mg PO BID 02/17/18 02/17/18 History mirtazapine 30 mg PO DAILY 02/17/18 02/17/18 History nystatin [Nystop] 1 applic TOPICAL BID 02/17/18 02/17/18 History propranolol 60 mg PO TID 02/17/18 02/17/18 History Exam Vital signs: Vital Signs 02/17/18 16:39 02/17/18 18:06 02/17/18 19:03 Temperature 98.4 F Pulse Rate 70 72 Respiratory Rate 15 18 Blood Pressure 136/63 160/69 H Pulse Oximetry 97 96 98 Intake & Output 02/17/18 02/17/18 02/18/18 06:59 18:59 06:59 Weight 72.575 kg Narrative: GENERAL: Lying in bed. Appears comfortable. SKIN: Warm and dry. HEAD: Atraumatic. Normocephalic. EYES: Right pupil nonreactive. Left pupil reactive. Patient reporting very poor vision in left eye, but is able to count fingers. ENT: No nasal bleeding or discharge. Mucous membranes pink and moist. NECK: Trachea midline. No JVD. CARDIOVASCULAR: Regular rate and rhythm. RESPIRATORY: No accessory muscle use. Clear to auscultation. Breath sounds equal bilaterally. GASTROINTESTINAL: Abdomen soft, non-tender, nondistended. Hepatic and splenic margins not palpable. MUSCULOSKELETAL: Extremities without clubbing, cyanosis, or edema. No obvious deformities. NEUROLOGICAL: Awake and alert. No obvious cranial nerve deficits. Motor grossly within normal limits. Five out of 5 muscle strength in the arms and legs. Normal speech. PSYCHIATRIC: Appropriate mood and affect; insight and judgment normal. Results - Labs CBC & Chem 7: 02/17/18 17:12 02/17/18 17:12 Labs: Short CBC 02/17/18 Range/Units 17:12 WBC 7.2 (4.0-11.0) th/mm3 Hgb 11.8 (11.6-15.3) gm/dL Hct 36.3 (35.0-46.0) % Plt Count 232 (150-450) th/mm3 BMP 02/17/18 17:12 Sodium 145 Potassium 4.4 Chloride 110 H Carbon Dioxide 27.0 BUN 29 H Creatinine 1.00 Calcium 8.8 Cardiac Enzymes 02/17/18 Range/Units 17:12 Total Creatine Kinase 52 (26-192) U/L Troponin I Less than 0.02 L (0.02-0.05) ng/mL Liver Function 02/17/18 Range/Units 17:12 Total Bilirubin 0.3 (0.2-1.0) mg/dL AST 16 (15-37) U/L ALT 17 (10-53) U/L Alkaline Phosphatase 81 (45-117) U/L Albumin 3.4 (3.4-5.0) g/dL - Imaging Impressions Chest X-Ray 02/17/18 16:57 CONCLUSION: Clear lungs. Head CT 02/17/18 16:57 CONCLUSION: 1. Negative CT Head non contrast. . Head MRI 02/17/18 18:35 CONCLUSION: 1. No acute findings. Mild chronic white matter ischemic changes. No recent infarct. Head MRA 02/17/18 18:49 CONCLUSION: 1. Examination within normal limits for age. Mild motion artifact. Neck MRA 02/17/18 18:49 CONCLUSION: 1. Examination within normal limits for age. No carotid stenosis. Percent stenosis is calculated using the diameter of the stenotic region over the diameter of the normal distal internal carotid artery Caprini VTE Risk Assessment Caprini VTE Risk Assessment: Moderate/High Risk (score >= 2) Caprini Risk Assessment Model: Point Value = 1 Point Value = 2 Point Value = 3 Point Value = 5 Age 41-60 Minor surgery BMI > 25 kg/m2 Swollen legs Varicose veins or History of unexplained or recurrent spontaneous Oral contraceptives or hormone replacement Sepsis (< 1 month) Serious lung disease, including pneumonia (< 1 month) Abnormal pulmonary function Acute myocardial infarction Congestive heart failure (< 1 month) History of inflammatory bowel disease Medical patient at bed rest Age 61-74 Arthroscopic surgery Major open surgery (> 45 min) Laparoscopic surgery (> 45 min) Malignancy Confined to bed (> 72 hours) Immobilizing plaster cast Central venous access Age >= 75 History of VTE Family history of VTE Factor V Leiden Prothrombin [id number] Lupus anticoagulant Anticardiolipin antibodies Elevated serum homocysteine Heparin-induced thrombocytopenia Other congenital or acquired thrombophilia Stroke (< 1 month) Elective arthroplasty Hip, pelvis, or leg fracture Acute spinal cord injury (< 1 month) Prophylaxis Regimen: Total Risk Factor Score Risk Level Prophylaxis Regimen 0-1 Low Early ambulation 2 Moderate Order ONE of the following: *Sequential Compression Device (SCD) *Heparin 5000 units SQ BID 3-4 Higher Order ONE of the following medications: *Heparin 5000 units SQ TID *Enoxaparin/Lovenox 40 mg SQ daily (WT < 150 kg, CrCl > 30 mL/min) *Enoxaparin/Lovenox 30 mg SQ daily (WT < 150 kg, CrCl > 10-29 mL/min) *Enoxaparin/Lovenox 30 mg SQ BID (WT < 150 kg, CrCl > 30 mL/min) AND/OR *Sequential Compression Device (SCD) 5 or more Highest Order ONE of the following medications: *Heparin 5000 units SQ TID (Preferred with Epidurals) *Enoxaparin/Lovenox 40 mg SQ daily (WT < 150 kg, CrCl > 30 mL/min) *Enoxaparin/Lovenox 30 mg SQ daily (WT < 150 kg, CrCl > 10-29 mL/min) *Enoxaparin/Lovenox 30 mg SQ BID (WT < 150 kg, CrCl > 30 mL/min) AND *Sequential Compression Device (SCD) Assessment and Plan - Plan //Left-sided visual changes //Possible left central retinal artery occlusion Stroke workup with CT head, MRI, MRA head and neck negative for stroke. = ESR 32. = Echocardiogram = We will continue Eliquis for now. = I discussed with on-call ophthalmology, who has recommended Combigan eyedrops. Will see patient tomorrow. Neurology following as well. Appreciate assistance. Hypertension. Blood pressure acceptable., However in the setting of possible stroke, will hold off on lisinopril for now. Continue amlodipine. Continue to monitor and adjust as necessary. //Atrial fibrillation. Heart rate under control. Continue beta-amanda and Eliquis. //Depression. Chronic. No SI. Continue mirtazapine. //Seizure disorder. Continue divalproex //Parkinsonism. Stable. Continue Sinemet. Discussed Condition With: Patient, nurse, Dr. Cristobal
[2018-02-18] MEDS: Senna/Docusate Sodium 8.6/50 MG Tablet PO SCH ×3 (00:24→22:12)
[2018-02-18] MEDS: Brimonidine 0.2% Opth Drops 5 ML Bottle LEFT EYE SCH ×3 (01:00→22:20)
[2018-02-18] MEDS: Timolol 0.5% Drops 5 ML Bottle LEFT EYE SCH ×3 (01:00→22:19)
[2018-02-18] MEDS ORDERED: Melatonin 5 MG Tablet PO ONE (01:22)
--- NOTE | 2018-02-18 07:41 | P.PN ---
Subjective Interval history: Follow up on patient with left eye pain and blurry vision. Patient seen and examined. Patient denies any complaints of pain. She continues to have blurry vision in the left eye. She denies any slurred speech, weakness, numbness or tingling. She denies any chest pain or shortness of breath. She denies any nausea, vomiting or abdominal pain. She is requesting if she can be discharged back to her [facility] today. Physical Exam Vital signs: Vital Signs 02/17/18 16:39 02/17/18 18:06 02/17/18 19:03 Temperature 98.4 F Pulse Rate 70 72 Respiratory Rate 15 18 Blood Pressure 136/63 160/69 H Pulse Oximetry 97 96 98 02/18/18 00:00 02/18/18 04:00 Temperature 97.7 F 97.7 F Pulse Rate 72 69 Respiratory Rate 17 16 Blood Pressure 129/62 168/74 H Pulse Oximetry 95 95 Intake & Output 02/17/18 02/18/18 02/18/18 18:59 06:59 18:59 Weight 72.575 kg 72 kg Narrative: GENERAL: Well developed, well nourished elderly female patient, INAD. Awake and alert. Appears comfortable. SKIN: Warm and dry. No generalized rash. HEAD: Atraumatic. Normocephalic. No facial asymmetry. EYES: Right pupil nonreactive. Left pupil reactive. Sclera anicteric. She is blind in the right eye. ENT: No nasal bleeding or discharge. Mucous membranes pink and moist. NECK: Trachea midline. No JVD. CARDIOVASCULAR: Regular rate and rhythm. No murmur, rubs or gallops. RESPIRATORY: No accessory muscle use. Clear to auscultation. Breath sounds equal bilaterally. GASTROINTESTINAL: Abdomen soft, non-tender, nondistended. +Bs. MUSCULOSKELETAL: Extremities without clubbing, cyanosis, or edema. No obvious deformities. NEUROLOGICAL: Awake and alert. No obvious cranial nerve deficits. Motor grossly within normal limits. Able to move all extremities spontaneously. Normal speech. PSYCHIATRIC: Calm and cooperative. Appropriate mood and affect; insight and judgment normal. Results - Labs CBC & Chem 7: 02/17/18 17:12 02/17/18 17:12 Laboratory Results - last 24 hr 02/17/18 02/17/18 02/17/18 17:12 17:12 17:12 WBC 7.2 RBC 3.97 L Hgb 11.8 Hct 36.3 MCV 91.4 MCH 29.8 MCHC 32.6 RDW 14.7 Plt Count 232 MPV 9.9 Neut % (Auto) 52.1 Lymph % (Auto) 39.3 Rawlins % (Auto) 5.8 Eos % (Auto) 2.0 Baso % (Auto) 0.8 Neut # (Auto) 3.8 Lymph # (Auto) 2.8 Rawlins # (Auto) 0.4 Eos # (Auto) 0.1 Baso # (Auto) 0.1 WBC Differential . Differential Comment Auto diff final ESR PT 10.3 INR 1.0 APTT 27.8 Sodium 145 Potassium 4.4 Chloride 110 H Carbon Dioxide 27.0 Anion Gap 8 BUN 29 H Creatinine 1.00 Estimated GFR 54 L Random Glucose 90 Calcium 8.8 Magnesium 2.3 Total Bilirubin 0.3 AST 16 ALT 17 Alkaline Phosphatase 81 Total Creatine Kinase 52 Troponin I Less than 0.02 L C-Reactive Protein Total Protein 7.5 D Albumin 3.4 02/17/18 02/17/18 17:12 17:12 WBC RBC Hgb Hct MCV MCH MCHC RDW Plt Count MPV Neut % (Auto) Lymph % (Auto) Rawlins % (Auto) Eos % (Auto) Baso % (Auto) Neut # (Auto) Lymph # (Auto) Rawlins # (Auto) Eos # (Auto) Baso # (Auto) WBC Differential Differential Comment ESR 32 H PT INR APTT Sodium Potassium Chloride Carbon Dioxide Anion Gap BUN Creatinine Estimated GFR Random Glucose Calcium Magnesium Total Bilirubin AST ALT Alkaline Phosphatase Total Creatine Kinase Troponin I C-Reactive Protein Less than 0.29 Total Protein Albumin - Imaging Impressions Chest X-Ray 02/17/18 16:57 CONCLUSION: Clear lungs. Head CT 02/17/18 16:57 CONCLUSION: 1. Negative CT Head non contrast. . Head MRI 02/17/18 18:35 CONCLUSION: 1. No acute findings. Mild chronic white matter ischemic changes. No recent infarct. Head MRA 02/17/18 18:49 CONCLUSION: 1. Examination within normal limits for age. Mild motion artifact. Neck MRA 02/17/18 18:49 CONCLUSION: 1. Examination within normal limits for age. No carotid stenosis. 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 Left-sided visual changes Possible left central retinal artery occlusion Stroke workup with CT head, MRI, MRA head and neck negative for stroke. ESR 32 -Ophthalmology consulted, appreciate assistance. Dr. Zepeda spoke with condomin[facility] manager ophthalmology at admission who recommended Combigan eyedrops, will continue. -Neurology following, appreciate recommendations. Ok to discharge from their perspective. -Echocardiogram pending -continuous cardiac monitoring -Neuro checks -PT and OT eval/treat -seizure and fall precautions Hypertension, not controlled -Will resume home dose of Lisinopril -Continue amlodipine -Continue to monitor and adjust as necessary Atrial fibrillation Heart rate under control -Continue beta-amanda and Eliquis -Continue to monitor HR Depression,chronic No SI -Continue mirtazapine. Seizure disorder No seizure activity -Continue divalproex -seizure precautions Parkinsonism,stable -Continue Sinemet DVT prophylaxis -patient is on Eliquis Discussed Condition With: patient, nursing staff, Dr. Richmond Discharge Planning: Not ready for discharge. Discharge pending ophthalmology clearance. (2) Cephalgia Qualifiers: Headache type: unspecified Headache chronicity pattern: acute headache Intractability: not intractable Qualified Code(s): R51 - Headache
[2018-02-18] MEDS: amLODIPine 5 MG Tablet PO SCH (09:20)
[2018-02-18] MEDS: Divalproex 500 MG ER Tablet PO SCH (09:20)
[2018-02-18] MEDS: Mirtazapine 15 MG Tablet PO SCH (09:20)
--- NOTE | 2018-02-18 11:21 | MB ---
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 She does see a retinal specialist locally. About the last 3 days, she has had pain on the top of her head which was somewhat sharp and that has gone away. Also, feel like she was blurry in the left eye. No asymmetrical weakness or numbness. The headache is gone. She has not noticed any hoahaoism tenderness, but she does have chronic headaches for all of her adult life and has seen multiple headache specialists. She gets some Botox from Dr. Thomas. He has tried Topamax, Depakote, nothing has worked. SOCIAL HISTORY: She is not a smoker or a drinker. Lives in an [facility]. FAMILY HISTORY: Positive for cancer in her mother. Negative for seizure or stroke. REVIEW OF SYSTEMS: Denies hypertension, diabetes, MO, CABG, stent, angioplasty, A-Fib, Coumadin, renal, hepatic or pulmonary disease, thyroid disease, lupus, ulcer, cancer, seizure or stroke. She is actually very healthy she tells me. MEDICATIONS AT HOME: 1. Colestid 1. Lisinopril. 2. Amlodipine. 3. Mirtazapine. 4. Nystatin. 5. Propranolol. 6. Terazosin. 7. Depakote 500 a day, although she tells me that Depakote does not agree with her Sinemet half a pill three times a day. 8. Eliquis 5 b.i.d. 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 PHYSICAL EXAMINATION: VITAL SIGNS: Afebrile, 79, 17, 178/71. NECK: There were no carotid bruits. HEART: Regular rhythm. I did not detect a murmur. NEUROLOGIC: Temples are Nontender bilaterally. The right pupil is larger than the left. They are both round. She is blind in all francisco of the right eye. Left eye visual francisco were full all 4 quadrants and her visual acuity appears intact and normal. Face is symmetric with normal sensation. Tongue was midline. There is no drift. She has normal strength in the upper and lower extremities bilaterally. Toes are downgoing bilaterally. Pinprick is intact throughout. DTRs are absent throughout. She is not ataxic on [id number]. Speech is fluent. She is not aphasic. LABORATORY DATA: Sedimentation rate is 32. CBC is normal. Basic metabolic profile was normal. LFTs are normal. CRP is normal. Troponin negative. Albumin normal. Coags are normal. MRI of the brain is negative. MRA chilkoot of Johansen and neck are normal. IMPRESSION: Normal neurological exam. It does not appear that she has temporal arteritis, both by her history and her labs. Ophthalmology is going to see her for the blurriness in her eye, but she has chronic headaches and I think overall she looks well neurologically. She does have some sinus disease in the right maxillary sinus and the left mastoid sinus, but appears to be relatively asymptomatic there. She will be okay for discharge neurologically if ophthalmology clears her. MD EBONI Leonardo/JARRET , 10:58 AM , 11:08 AM
--- NOTE | 2018-02-18 13:44 | ECG ---
Date Performed: 02/17/2018 Time Performed: 18:06:37 PTAGE: 77 years EKG: Sinus rhythm NONSPECIFIC T-WAVE ABNORMALITY BORDERLINE ECG Since the PREVIOUS TRACING , no significant change noted PREVIOUS TRACIN12/06/2017 13.22 DOCTOR: Marcus Pizano Interpretating Date/Time 02/18/2018 13:42:38
[2018-02-18] MEDS: Lisinopril 10 MG Tablet PO SCH ×2 (15:39→22:12)
--- NOTE | 2018-02-18 16:59 | P.CON ---
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 Her outpatient Retina specialist is Dr. Joseph Dennis and she last saw him a few months ago. She was diagnosed with a CRAO OD and can only see light out of that eye. She describes the pain in her left eye as sharp and constant. [facility] - History History Provided By: Patient - Medical History Medical History: Medical History (Last Reviewed 02/12/18 @ 15:13 by To Chapin) Anxiety Atrial fibrillation Chronic pain Depression Fusion of spine HTN (hypertension) Hypothyroid Insomnia Migraine Mild cognitive impairment Parkinson disease Restless leg syndrome TIA (transient ischemic attack) UTI (urinary tract infection) - Surgical History Surgical History: Surgical History (Last Updated 02/12/18 @ 15:49 by To Chapin) History of repair of hiatal hernia S/P cholecystectomy - Family History Family History: Family History (Last Updated 02/17/18 @ 22:07 by Robert Zepeda MD) Grandparent No problems noted. Father CAD (coronary artery disease) Mother Cancer - Tobacco History Second Hand Smoke Exposure: No Tobacco Use In Past 30 Days: No Smoking Status: Never smoker Tobacco Type: Cigarettes - Alcohol History How Often Do You Have a Drink Containing Alcohol: Never - Substance Use History Substance History: No History of Abuse - Travel History Recent Travel in the [place] Within the Last 8 Weeks: No Recent Travel Out of the Country Within the Last 8 Weeks: No - Immunization History Tetanus Immunization: <5 Years Medications and Allergies Active Medications: Active Medications Acetaminophen (Tylenol) 650 mg PO Q4H PRN PRN Reason: HEADACHE Last Admin: 02/18/18 12:24 Dose: 650 mg Al Hydroxide/Mg Hydroxide (Milk Of Magnesia Liq) 30 ml PO Q12H PRN PRN Reason: Mild Constipation Amlodipine Besylate (Norvasc) 10 mg PO DAILY [facility] Last Admin: 02/18/18 09:20 Dose: 10 mg Apixaban (Eliquis) 5 mg PO BID [facility] Last Admin: 02/18/18 09:20 Dose: 5 mg Bisacodyl (Dulcolax Supp) 10 mg RECTAL DAILY PRN PRN Reason: SEVERE CONSITIPATION Brimonidine Tartrate (Alphagan 0.2% Opth Drops) 1 drops LEFT EYE BID [facility] Last Admin: 02/18/18 09:21 Dose: 1 drops Carbidopa/Levodopa (Sinemet 25/100 Mg) 0.5 tab PO TID [facility] Last Admin: 02/18/18 12:22 Dose: 0.5 tab Colestipol HCl (Colestid Pkt) 5 gm PO BID [facility] Last Admin: 02/18/18 09:20 Dose: 5 gm Divalproex Sodium (Depakote Er) 500 mg PO DAILY [facility] Last Admin: 02/18/18 09:20 Dose: 500 mg Lactulose (Lactulose Liq) 30 ml PO DAILY PRN PRN Reason: SEVERE CONSITIPATION Lisinopril (Prinivil) 20 mg PO BID [facility] Last Admin: 02/18/18 15:39 Dose: 20 mg Mirtazapine (Remeron) 30 mg PO DAILY [facility] Last Admin: 02/18/18 09:20 Dose: 30 mg Miscellaneous (Pill Splitter) 1 each OTHER UNSCH PRN PRN Reason: NEEDED Ondansetron HCl (Zofran Inj) 4 mg IV.PUSH Q6H PRN PRN Reason: NAUSEA OR VOMITING Propranolol HCl (Inderal) 60 mg PO TID [facility] Last Admin: 02/18/18 12:22 Dose: 60 mg Senna/Docusate Sodium (Faby-Colace) 1 tab PO BID [facility] Last Admin: 02/18/18 09:20 Dose: 1 tab Sennosides (Senokot) 17.2 mg PO Q12H PRN PRN Reason: Moderate Constipation Sodium Chloride (Ns Flush) 2 ml IV.FLUSH PRN PRN PRN Reason: FLUSH AFTER USING IV ACCESS Terazosin HCl (Hytrin) 1 mg PO BID [facility] Last Admin: 02/18/18 09:20 Dose: 1 mg Timolol Maleate (Timoptic 0.5% Drops) 1 drops LEFT EYE Q12HR [facility] Last Admin: 02/18/18 09:21 Dose: 1 drops Allergies Allergy/AdvReac Type Severity Reaction Status Date / Time iodine Allergy Severe Anaphylaxis Verified 02/11/18 01:33 potassium iodide Allergy Severe Anaphylaxis Verified 02/11/18 01:33 povidone-iodine Allergy Severe Anaphylaxis Verified 02/11/18 01:33 sodium iodide Allergy Severe Anaphylaxis Verified 02/11/18 01:33 sodium iodide Allergy Severe Anaphylaxis Verified 02/11/18 01:33 Sulfa (Sulfonamide Allergy Severe Anaphylaxis Verified 02/11/18 01:33 Antibiotics) diphenhydramine AdvReac Tachycardia Verified 02/13/18 19:33 [From Benadryl] Home Medications Medication Instructions Recorded Confirmed Type acetaminophen [Tylenol] 650 mg PO BID 02/17/18 02/17/18 History colestipol [Colestid] 5 gm PO BID 02/17/18 02/17/18 History divalproex 500 mg PO DAILY 02/17/18 02/17/18 History lisinopril 20 mg PO BID 02/17/18 02/17/18 History mirtazapine 30 mg PO DAILY 02/17/18 02/17/18 History nystatin [Nystop] 1 applic TOPICAL BID 02/17/18 02/17/18 History propranolol 60 mg PO TID 02/17/18 02/17/18 History Physical Exam Vital signs: Vital Signs 02/17/18 18:06 02/17/18 19:03 02/18/18 00:00 Temperature 97.7 F Pulse Rate 72 72 Respiratory Rate 18 17 Blood Pressure 160/69 H 129/62 Pulse Oximetry 96 98 95 02/18/18 04:00 02/18/18 06:49 02/18/18 08:00 Temperature 97.7 F 97.8 F Pulse Rate 69 79 Respiratory Rate 16 12 17 Blood Pressure 168/74 H 178/71 H Pulse Oximetry 95 95 02/18/18 12:00 02/18/18 14:27 Temperature 98.1 F Pulse Rate 67 Respiratory Rate 17 Blood Pressure 157/70 H Pulse Oximetry 96 93 L Intake & Output 02/17/18 02/18/18 02/18/18 18:59 06:59 18:59 Intake Total 1000 / 1000 Balance 1000 / 1000 Weight 72.575 kg 72 kg Intake: IV 1000 / 1000 NS Inj 1,000 ML @ 70 mls/hr IV. 1000 / 1000 CONT .[id number] [facility] Rx#:[id number] Other: Date of Last Bowel Movement 02/17/18 - Detailed Eye Exam Comments: Va cc at near OD LP, OS 20/30 EOM full OU, no diplopia CVF full OU Pupils 3-2, +APD OD IOP normal to palpation OU Anterior exam OD - normal eyelid, C/S W&Q, K clear, AC deep, pupil round, NS OS - normal eyelid, C/S W&Q, K clear, AC deep, pupil round, NS Dilated exam OD - pale ON, ves normal, vit clear, retina flat OS - ON s/p/f, ves normal, vit clear, retina flat Assessment and Plan - Assessment (1) Left eye pain Code(s): H57.12 - Ocular pain, left eye Status: Acute Plan: Left eye does NOT have a central retinal artery occlusion. Vision is 20/30. Recommend following up with as outpatient for further testing. (2) Central retinal artery occlusion, right eye Code(s): H34.11 - Central retinal artery occlusion, right eye Status: Acute Plan: h/o central retinal artery occlusion right eye. Light perception vision - stable.
[2018-02-18 20:08] VITALS: RESP 16
--- NOTE | 2018-02-19 07:12 | P.PNNEU ---
Subjective Subjective Comments: No acute events reported No headache No chest pain No dyspnea Active Medications: Active Medications Acetaminophen (Tylenol) 650 mg PO Q4H PRN PRN Reason: HEADACHE Last Admin: 02/18/18 12:24 Dose: 650 mg Al Hydroxide/Mg Hydroxide (Milk Of Magnesia Liq) 30 ml PO Q12H PRN PRN Reason: Mild Constipation Amlodipine Besylate (Norvasc) 10 mg PO DAILY [facility] Last Admin: 02/18/18 09:20 Dose: 10 mg Apixaban (Eliquis) 5 mg PO BID [facility] Last Admin: 02/18/18 22:12 Dose: 5 mg Bisacodyl (Dulcolax Supp) 10 mg RECTAL DAILY PRN PRN Reason: SEVERE CONSITIPATION Brimonidine Tartrate (Alphagan 0.2% Opth Drops) 1 drops LEFT EYE BID [facility] Last Admin: 02/18/18 22:20 Dose: 1 drops Carbidopa/Levodopa (Sinemet 25/100 Mg) 0.5 tab PO TID [facility] Last Admin: 02/18/18 17:01 Dose: 0.5 tab Colestipol HCl (Colestid Pkt) 5 gm PO BID [facility] Last Admin: 02/18/18 22:16 Dose: 5 gm Divalproex Sodium (Depakote Er) 500 mg PO DAILY [facility] Last Admin: 02/18/18 09:20 Dose: 500 mg Lactulose (Lactulose Liq) 30 ml PO DAILY PRN PRN Reason: SEVERE CONSITIPATION Lisinopril (Prinivil) 20 mg PO BID [facility] Last Admin: 02/18/18 22:12 Dose: 20 mg Mirtazapine (Remeron) 30 mg PO DAILY [facility] Last Admin: 02/18/18 09:20 Dose: 30 mg Miscellaneous (Pill Splitter) 1 each OTHER UNSCH PRN PRN Reason: NEEDED Ondansetron HCl (Zofran Inj) 4 mg IV.PUSH Q6H PRN PRN Reason: NAUSEA OR VOMITING Propranolol HCl (Inderal) 60 mg PO TID [facility] Last Admin: 02/18/18 17:01 Dose: 60 mg Senna/Docusate Sodium (Faby-Colace) 1 tab PO BID [facility] Last Admin: 02/18/18 22:12 Dose: 1 tab Sennosides (Senokot) 17.2 mg PO Q12H PRN PRN Reason: Moderate Constipation Sodium Chloride (Ns Flush) 2 ml IV.FLUSH PRN PRN PRN Reason: FLUSH AFTER USING IV ACCESS Terazosin HCl (Hytrin) 1 mg PO BID [facility] Last Admin: 02/18/18 22:19 Dose: 1 mg Timolol Maleate (Timoptic 0.5% Drops) 1 drops LEFT EYE Q12HR [facility] Last Admin: 02/18/18 22:19 Dose: 1 drops Allergies/Adverse Reactions: Allergies Allergy/AdvReac Type Severity Reaction Status Date / Time iodine Allergy Severe Anaphylaxis Verified 02/11/18 01:33 potassium iodide Allergy Severe Anaphylaxis Verified 02/11/18 01:33 povidone-iodine Allergy Severe Anaphylaxis Verified 02/11/18 01:33 sodium iodide Allergy Severe Anaphylaxis Verified 02/11/18 01:33 sodium iodide Allergy Severe Anaphylaxis Verified 02/11/18 01:33 Sulfa (Sulfonamide Allergy Severe Anaphylaxis Verified 02/11/18 01:33 Antibiotics) diphenhydramine AdvReac Tachycardia Verified 02/13/18 19:33 [From [facility]] Physical Exam Vital signs: Vital Signs 02/18/18 08:00 02/18/18 12:00 02/18/18 14:27 Temperature 97.8 F 98.1 F Pulse Rate 79 67 Respiratory Rate 17 17 Blood Pressure 178/71 H 157/70 H Pulse Oximetry 95 96 93 L 02/18/18 16:00 02/18/18 20:00 02/18/18 23:50 Temperature 98.4 F 98.1 F 98 F Pulse Rate 66 68 66 Respiratory Rate 17 16 16 Blood Pressure 113/69 135/59 L 132/56 L Pulse Oximetry 97 97 94 L Intake & Output 02/18/18 02/19/18 02/19/18 18:59 06:59 18:59 Intake Total 1240 / 1240 Balance 1240 / 1240 Intake: IV 1000 / 1000 NS Inj 1,000 ML @ 70 mls/hr IV. 1000 / 1000 CONT .[id number] [facility] Rx#:[id number] Oral 240 / 240 Other: Date of Last Bowel Movement 02/17/18 02/17/18 Narrative: vff os nl speech Objective Laboratory Results - last 24 hr 02/18/18 02/18/18 11:10 16:18 POC Glucose 106 134 H Review/Management - Review/Management Plan: imp optho cleared labs esr crp nl] mri/a/a neg ok by me brown
--- NOTE | 2018-02-19 07:33 | P.PN ---
Subjective Interval history: Follow up on patient with left eye pain and blurry vision. Patient seen and examined. Physical Exam Vital signs: Vital Signs 02/18/18 08:00 02/18/18 12:00 02/18/18 14:27 Temperature 97.8 F 98.1 F Pulse Rate 79 67 Respiratory Rate 17 17 Blood Pressure 178/71 H 157/70 H Pulse Oximetry 95 96 93 L 02/18/18 16:00 02/18/18 20:00 02/18/18 23:50 Temperature 98.4 F 98.1 F 98 F Pulse Rate 66 68 66 Respiratory Rate 17 16 16 Blood Pressure 113/69 135/59 L 132/56 L Pulse Oximetry 97 97 94 L Intake & Output 02/18/18 02/19/18 02/19/18 18:59 06:59 18:59 Intake Total 1240 / 1240 Balance 1240 / 1240 Intake: IV 1000 / 1000 NS Inj 1,000 ML @ 70 mls/hr IV. 1000 / 1000 CONT .[id number] [facility] Rx#:[id number] Oral 240 / 240 Other: Date of Last Bowel Movement 02/17/18 02/17/18 Narrative: GENERAL: Well developed, well nourished elderly female patient, INAD. Awake and alert. Appears comfortable. SKIN: Warm and dry. No generalized rash. HEAD: Atraumatic. Normocephalic. No facial asymmetry. EYES: Right pupil nonreactive. Left pupil reactive. Sclera anicteric. She is blind in the right eye. ENT: No nasal bleeding or discharge. Mucous membranes pink and moist. NECK: Trachea midline. No JVD. CARDIOVASCULAR: Regular rate and rhythm. No murmur, rubs or gallops. RESPIRATORY: No accessory muscle use. Clear to auscultation. Breath sounds equal bilaterally. GASTROINTESTINAL: Abdomen soft, non-tender, nondistended. +Bs. MUSCULOSKELETAL: Extremities without clubbing, cyanosis, or edema. No obvious deformities. NEUROLOGICAL: Awake and alert. No obvious cranial nerve deficits. Motor grossly within normal limits. Able to move all extremities spontaneously. Normal speech. PSYCHIATRIC: Calm and cooperative. Appropriate mood and affect; insight and judgment normal. Results - Labs CBC & Chem 7: 02/17/18 17:12 02/17/18 17:12 Laboratory Results - last 24 hr 02/18/18 02/18/18 11:10 16:18 POC Glucose 106 134 H - Imaging Chest X-Ray 02/17/18 16:57 CONCLUSION: Clear lungs. Head CT 02/17/18 16:57 CONCLUSION: 1. Negative CT Head non contrast. . Head MRI 02/17/18 18:35 CONCLUSION: 1. No acute findings. Mild chronic white matter ischemic changes. No recent infarct. Head MRA 02/17/18 18:49 CONCLUSION: 1. Examination within normal limits for age. Mild motion artifact. Neck MRA 02/17/18 18:49 CONCLUSION: 1. Examination within normal limits for age. No carotid stenosis. 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 Left-sided visual changes Possible left central retinal artery occlusion Stroke workup with CT head, MRI, MRA head and neck negative for stroke. ESR 32 -Ophthalmology consulted, appreciate assistance. Dr. Zepeda spoke with [employer] ophthalmology at admission who recommended Combigan eyedrops, will continue. -Neurology following, appreciate recommendations. Ok to discharge from their perspective. -Echocardiogram pending -continuous cardiac monitoring -Neuro checks -PT and OT eval/treat -seizure and fall precautions Hypertension, not controlled -Will resume home dose of Lisinopril -Continue amlodipine -Continue to monitor and adjust as necessary Atrial fibrillation Heart rate under control -Continue beta-amanda and Eliquis -Continue to monitor HR Depression,chronic No SI -Continue mirtazapine. Seizure disorder No seizure activity -Continue divalproex -seizure precautions Parkinsonism,stable -Continue Sinemet DVT prophylaxis -patient is on Eliquis Discharge Planning: Not ready for discharge. Discharge pending ophthalmology clearance. (2) Cephalgia Qualifiers: Headache type: unspecified Headache chronicity pattern: acute headache Intractability: not intractable Qualified Code(s): R51 - Headache
--- NOTE | 2018-02-19 08:00 | P.DS ---
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 She otherwise says she feels normal. All denies any chest pain, shortness of breath, fevers, chills. Denies butch headache, and just IV pain on the left. DS: Diagnosis - Discharge Diagnosis (1) Vision disturbance Status: Acute (2) Cephalgia Status: Acute (3) Dyslipidemia Status: Acute DS: Medications - Discharge Medications Prescriptions: atorvastatin 20 mg PO DAILY #30 tab DS: Summary Hospital Course: Patient admitted with complaints of left eye pain and blurry vision. Patient with history of right eye central retinal arterial occlusion. Patient seen in consultation by neurology and ophthalmology. All workup negative. No evidence of central retinal arterial occlusion in the left eye per ophthalmology. Patient improved clinically. Recent echo done 12/09/2017 with EF of 50-55%. Patient [facility] in [facility] condition. - Time Spent with Patient Total time spent providing and/or coordinating discharge services: Greater than 30 minutes - Quality: VTE Deep Vein Thrombosis/Pulmonary Embolism Present on Admission: No Exam Vital signs: Vital Signs 02/18/18 08:00 02/18/18 12:00 02/18/18 14:27 Temperature 97.8 F 98.1 F Pulse Rate 79 67 Respiratory Rate 17 17 Blood Pressure 178/71 H 157/70 H Pulse Oximetry 95 96 93 L 02/18/18 16:00 02/18/18 20:00 02/18/18 23:50 Temperature 98.4 F 98.1 F 98 F Pulse Rate 66 68 66 Respiratory Rate 17 16 16 Blood Pressure 113/69 135/59 L 132/56 L Pulse Oximetry 97 97 94 L Intake & Output 02/18/18 02/19/18 02/19/18 18:59 06:59 18:59 Intake Total 1240 / 1240 Balance 1240 / 1240 Intake: IV 1000 / 1000 NS Inj 1,000 ML @ 70 mls/hr IV. 1000 / 1000 CONT .[id number] [facility] Rx#:[id number] Oral 240 / 240 Other: Date of Last Bowel Movement 02/17/18 02/17/18 Narrative: GENERAL: Well developed, well nourished elderly female patient, INAD. Awake and alert. Appears comfortable. SKIN: Warm and dry. No generalized rash. HEAD: Atraumatic. Normocephalic. No facial asymmetry. EYES: Right pupil nonreactive. Left pupil reactive. Sclera anicteric. She is blind in the right eye. ENT: No nasal bleeding or discharge. Mucous membranes pink and moist. NECK: Trachea midline. No JVD. CARDIOVASCULAR: Regular rate and rhythm. No murmur, rubs or gallops. RESPIRATORY: No accessory muscle use. Clear to auscultation. Breath sounds equal bilaterally. GASTROINTESTINAL: Abdomen soft, non-tender, nondistended. +Bs. MUSCULOSKELETAL: Extremities without clubbing, cyanosis, or edema. No obvious deformities. NEUROLOGICAL: Awake and alert. No obvious cranial nerve deficits. Motor grossly within normal limits. Able to move all extremities spontaneously. Normal speech. PSYCHIATRIC: Calm and cooperative. Appropriate mood and affect; insight and judgment normal. Results Procedures completed during hospitalization: None Completed studies during hospitalization: Chest X-Ray 02/17/18 16:57 CONCLUSION: Clear lungs. Head CT 02/17/18 16:57 CONCLUSION: 1. Negative CT Head non contrast. . Head MRI 02/17/18 18:35 CONCLUSION: 1. No acute findings. Mild chronic white matter ischemic changes. No recent infarct. Head MRA 02/17/18 18:49 CONCLUSION: 1. Examination within normal limits for age. Mild motion artifact. Neck MRA 02/17/18 18:49 CONCLUSION: 1. Examination within normal limits for age. No carotid stenosis. 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 Left-sided visual changes Possible left central retinal artery occlusion Stroke workup with CT head, MRI, MRA head and neck negative for stroke. ESR 32 -Ophthalmology consulted, appreciate assistance. No evidence of left eye central retinal arterial occlusion. Vision 20/30. Cleared for d/c - f/u with Dr. Dennis as outpt. -Neurology following, appreciate recommendations. Ok to discharge from their perspective. -Echocardiogram 12/09/17 - EF 50-55%, grade I diastolic dysfxn -continuous cardiac monitoring -Neuro checks -PT and OT eval/treat -seizure and fall precautions Hypertension,controlled -Continue on home dose of Lisinopril and Norvasc -Continue to monitor and adjust as necessary Dyslipidemia Trig 323, Chol 310, LDL 183 -per ASCVD risk calc, patient has 23.1% risk of CV related event. Will start on Lipitor 20mg daily. -Patient will need to follow-up with PCP as outpatient have repeat lipid profile in 8 weeks to 3 mos Atrial fibrillation Heart rate under control -Continue beta-amanda and Eliquis -Continue to monitor HR Depression,chronic No SI -Continue mirtazapine. Seizure disorder No seizure activity -Continue divalproex -seizure precautions Parkinsonism,stable -Continue Sinemet DVT prophylaxis -patient is on Eliquis Discharge Plan - Discharge Disposition Patient Disposition: [facility] - Discharge Condition Condition: Stable - Discharge Order Discharge Orders: Discharge Order (Routine); Ordered 02/19/18 Ordered By: Paty Quintero - Discharge Details Anticipated Discharge Date: 02/19/18 - Physicians Team Attending Provider: Parvin Richmond Other Providers: Lucia Terry MD ; Tramaine Jasmine MD
[2018-02-19 09:03] VITALS: BP 167/70; PULSE 74; TEMP 98.1
[2018-02-19] MEDS: Divalproex 500 MG ER Tablet PO SCH (10:46)
[2018-02-19] MEDS: Lisinopril 10 MG Tablet PO SCH (10:46)
[2018-02-19] MEDS: Mirtazapine 15 MG Tablet PO SCH (10:46)
[2018-02-19] MEDS: amLODIPine 5 MG Tablet PO SCH (10:46)
[2018-02-19] MEDS: Brimonidine 0.2% Opth Drops 5 ML Bottle LEFT EYE SCH (10:48)
[2018-02-19] MEDS: Timolol 0.5% Drops 5 ML Bottle LEFT EYE SCH (10:48)
[2018-02-19] MEDS: Senna/Docusate Sodium 8.6/50 MG Tablet PO SCH (10:49)
[2018-02-23 17:56] VITALS: O2SAT 94
== END 2018-02-19 13:14 ==
LOC: NEPE 16:32 → NEDA 19:08 → N05 20:57
PROVIDERS: ADMIT Hospitalist; ATTEND Hospitalist